=== PATIENT | female | born 2000 | race Caucasian/White ===

== ENCOUNTER 2022-12-29 13:32 | Outpatient (OUT) | payer OTHER, SELFPAY ==
--- NOTE | 2022-12-29 14:01 | US_ITS ---
[place] [id number] Patient Name: NIDIA PEDRO MRN: [id number] date: 2000 Sex: F Assigned Patient Location: US Current Patient Location: Accession/Order Number: [id number] Exam Date: 12/29/2022 14:01 Report Date: 12/30/2022 07:26 At the request of: ADRIAN GUSMAN Procedure: US OB transvaginal EXAMINATION: US OB transvaginal HISTORY: MISSED MENSES COMPARISON: No relevant comparison available. FINDINGS: Webb intrauterine gestation Gestational sac: 2.33 cm, 6 weeks 6 days CRL: 1.15 cm, 7 weeks 2 days Yolk sac: 4.0 mm Heart rate: 149 bpm Cervix: Closed, 3.5 cm Uterus: Normal, anteverted The right ovary is not visualized. The left ovary measures 5.1 cm containing a 3.9 cm area of anechoic echogenicity possibly corpus luteal cyst Clinical age: 8 weeks 2 days Clinical AYAH: 08/08/2023 Ultrasound age: 7 weeks 2 days Ultrasound AYAH: 08/15/2023 US/US OB transvaginal IMPRESSION: Viable webb intrauterine gestation measuring 7 weeks 2 days Electronically authenticated by: PARTH PEDRO Date: 12/30/2022 07:26
== END 2022-12-29 13:33 | disposition home or self-care (01) ==
LOC: US 13:54
PROVIDERS: Visit Provider Obstetrics & Gynecology
DX: Z34.91 Encounter for supervision of normal pregnancy, unspecified, first trimester (principal); Z3A.01 Less than 8 weeks gestation of pregnancy
CPT/HCPCS: 76817

== ENCOUNTER 2023-03-09 19:18 | Outpatient (REF) | payer OTHER, SELFPAY ==
--- OUTSIDE RECORDS SUMMARY | 2023-03-09 19:21 | XMS_ITS | CCD ---
Author Name Unknown Address [address] [place] [address] Organization [facility] Care Team Providers Care Hourly Associate Name Role Phone Rosita Owen Primary Care Physician Rosita Owen Admitting Unavailable Rosita Owen Attending Unavailable Rosita Owen Referring Unavailable Adrian GUSMAN Admitting Unavailable Adrian GUSMAN Attending Unavailable Giulia Oneil Admitting Unavailable Giulia Oneil Attending Unavailable ADRIAN GUSMAN Attending Unavailable Results Test Name Value Interpretation Reference Range Facility .Interpretation:on 3 HCV Ab IA Ql Comment Invalid Interpretation Code [facility] Comment on above: Result Comment: Not infected with HCV unless early or acute infection is suspected (which may be delayed in an immunocompromised individual), or other evidence exists to indicate HCV infection. Performed at: [facility] [address] [id number] PhD Nathaniel Boone Performed By: #### 2 185510, 8301592, [id number], 04438148, 661225670, 3477920, 794185018, [id number], [id number] #### [facility] [address] [place] [address] C Urineon 01-08-2023 Bacteria identified Cx Nom (U) Microbiology PROCEDURE: Urine Culture [R1] SOURCE: U CleanCatch BODY SITE: COLLECTED DATE/TIME: 01/06/2023 14:59 EDT RECEIVED DATE/TIME: 01/06/2023 16:04 EDT START DATE/TIME: 01/06/2023 16:04 EDT FREE TEXT SOURCE: Adrian GUSMAN DO, DO, Corey R FINAL REPORTS Final Report [] Verified Date/Time: 01/08/2023 11:38 EDT 1,000 cfu/ml Mixed skin contaminants Performing Locations R1: This test was performed at: [facility], [address] [place] [address], [address] , [place], Normal [facility] Comment on above: Performed By: #### 2 969809 ####[facility] [address] [place] [address] HCV Antibody RFX to Quant PC Isreal 01-08-2023 HCV IgG IA Ql Non-Reactive Invalid Interpretation Code Non Reactive [facility] Comment on above: Result Comment: Perf ormed at: [address] [id number] PhD Nathaniel Boone Performed By: #### 2 953689, 1741270, [id number], 47516471, 265691492, 3235420, 521250384, [id number], [id number] #### [facility] [address] [place] [address] HIV Screen 4th Generation wR fxon 01-08-2023 HIV 1+2 Ab+HIV1 p24 Ag IA Ql Non-Reactive Invalid Interpretation Code Non Reactive [facility] Comment on above: Result Comment: HIV Negative HIV-1/HIV-2 antibodies and HIV-1 p24 antigen were NOT detected. There is no laboratory evidence of HIV infection. Performed at: [address] [id number] PhD Nathaniel Boone Performed By: #### 2 856394, 6305602, [id number], 15282509, 089098148, 5557940, 132545185, [id number], [id number] #### [facility] [address] [place] [address] Hep Bs Agon 01-08-2023 HBV surface Ag IA Ql Negative Invalid Interpretation Code Negative [facility] Comment on above: Result Comment: Perf ormed at: [place] [id number] [place], [place] [id number] PhD Nathaniel Boone Performed By: #### 2 244267, 5123558, [id number], 28144956, 891028330, 9332402, 290346369, 2980609500, [id number] #### [facility] [address] [place] [address] RPR with Conf Rfxon 01-09-20 Reagin Ab RPR Ql (S) Non-Reactive Invalid Interpretation Code Non Reactive [facility] Comment on above: Result Comment: Perf ormed at: [address] [id number] PhD Nathaniel Boone Performed By: #### 2 783816, 0781899, [id number], 28738993, 829040529, 0358209, 472387099, 4790360293, 482884607 #### [facility] [address] [place] [address] Rubella IgGon 01-08-2023 Rubella virus IgG Qn (S) 3.20 [IU]/mL Invalid Interpretation Code Immune >0.99 [facility] Comment on above: Result Comment: Non- immune <0.90 Equivocal 0.90 - 0.99 Immune >0.99 Performed at: [address] [id number] PhD Nathaniel Boone Performed By: #### 2 205853, 4926321, 9755201951, 55770943, 404441860, 2613489, 305067657, 9726867060, 230357163 ####[facility] [address] [place] [address] ABO/Rhon 01-06-2023 ABO/Rh Positive Invalid Interpretation Code [facility] Comment on above: Performed By: #### 2 027526, [id number], [id number] ####[facility] [address] [place] [address] ABO/Rh History Checkon 01-06 ABO/Rh History Check Verified Hx Blood Type Normal [facility] Comment on above: Performed By: #### 2 569626, 02900513, 52060787 ####[facility] [address] [place] [address] ABSCon 01-06-2023 ABSC Gel Interp Negative Normal [facility] Comment on above: Performed By: #### 2 720040, 17662645, 91131671 ####[facility] [address] [place] [address] BLOOD BANKOrdered By: Hollie Zavala on 01-06-2023 ABO/Rh Interp Positive Invalid Interpretation Code [facility] BB Subsection ABSC Gel Interp Negative (01/06/23 3:05 PM) Normal [facility] BB Subsection CBC w/Indiceson 01-06-2023 Erythrocyte distribution width (RBC) [Ratio] 12.8 % Normal 10.9-14.2 [facility] Comment on above: Performed By: #### 2 662339, 9890474, 0217664301, 01275800, 396341047, 5745418, 569615327, 9408855442, 417806955 #### [facility] [address] [place] [address] Hematocrit (Bld) [Volume fraction] 40.8 % Normal 34.0-46.0 [facility] Comment on above: Performed By: #### 2 563986, 3522956, 3124083396, 68301393, 071301218, 9387070, 761491712, 9400363373, 830595981 #### [facility] [address] [place] [address] Hemoglobin (Bld) [Mass/Vol] 13.8 g/dL Normal 12.0-16.0 [facility] Comment on above: Performed By: #### 2 028885, 4142596, 7028872059, 39396755, 349633161, 0656623, 224567315, 1027050949, 281336581 #### [facility] [address] [place] [address] MCH (RBC) [Entitic mass] 31.6 pg Normal 27.0-34.0 [facility] Comment on above: Performed By: #### 2 079806, 6395378, 4707842736, 04194902, 810642113, 7948759, 596248543, 4465193235, 824447331 #### [facility] [address] [place] 0205857 MCHC (RBC) [Mass/Vol] 33.7 g/dL Normal 31.4-36.0 [facility] Comment on above: Performed By: #### 2 802676, 5716268, 7118431218, 14480954, 829565282, 1297898, 172029971, 2081396586, 932282654 #### [facility] [address] [place] [address] MCV (RBC) [Entitic vol] 93.7 fL Normal 80.0-100.0 [facility] Comment on above: Performed By: #### 2 886733, 1336170, 8773368646, 22219247, 105886707, 8059825, 867351352, 4170068208, 230065191 #### [facility] [address] [place] [address] Platelet mean volume (Bld) [Entitic vol] 8.1 fL Normal 6.4-10.8 [facility] Comment on above: Performed By: #### 2 120218, 2985177, 8007435455, 81132951, 948496556, 8350460, 195477792, 2849577580, 570310358 #### [facility] [address] [place] [address] Platelets (Bld) [#/Vol] 345.0 E9/L Normal 150.0-500.0 [facility] Comment on above: Performed By: #### 2 940387, 6475407, 4781592233, 26476766, 905993394, 0492435, 542846446, 2242320517, 537650863 #### [facility] [address] [place] [address] RBC (Bld) [#/Vol] 4.4 E12/L Normal 4.3-5.9 [facility] Comment on above: Performed By: #### 2 651582, 2452347, 1809715074, 89461401, 079879808, 2854345, 080673111, 9290640818, 706527604 #### [facility] [address] [place] [address] WBC corrected for nucl RBC Auto (Bld) [#/Vol] 9.8 E9/L Normal 4.0-11.0 [facility] Comment on above: Performed By: #### 2 418499, 7201691, 0485210474, 33740439, 779633013, 3835714, 420745313, 7298288823, 583473211 #### [facility] [address] [place] [address] CHEMISTRYOrdered By: Maryann Brooke on 01-06-2023 HbA1c (Bld) [Mass fraction] 5.0 % Normal <=5.9% [facility] ChemAutoSS CHEMISTRYOrdered By: SYSTEM SYSTEM on 01-06-2023 TSH Qn 1.74 m[IU]/L Normal 0.34 - 5.60 mcIU/mL [facility] Remisol Consent for Treatmenton 12-12 Consent for Treatment [id number] .00TIFF Normal [facility] HEMATOLOGYOrdered By: Hollie Zavala on 01-06-2023 Erythrocyte distribution width (RBC) [Ratio] 12.8 % Normal 10.9 - 14.2 % [facility] HemeAutoSS Hematocrit (Bld) [Volume fraction] 40.8 % Normal 34.0 - 46.0 % [facility] HemeAutoSS Hemoglobin (Bld) [Mass/Vol] 13.8 g/dL Normal 12.0 - 16.0 gm/dL [facility] HemeAutoSS MCH (RBC) [Entitic mass] 31.6 pg Normal 27.0 - 34.0 pg [facility] HemeAutoSS MCHC (RBC) [Mass/Vol] 33.7 g/dL Normal 31.4 - 36.0 gm/dL [facility] HemeAutoSS MCV (RBC) [Entitic vol] 93.7 fL Normal 80.0 - 100.0 fL [facility] HemeAutoSS Platelet mean volume (Bld) [Entitic vol] 8.1 fL Normal 6.4 - 10.8 fL [facility] HemeAutoSS Platelets (Bld) [#/Vol] 345.0 E9/L Normal 150.0 - 500.0 E9/L [facility] HemeAutoSS RBC (Bld) [#/Vol] 4.4 E12/L Normal 4.3 - 5.9 E12/L [facility] HemeAutoSS WBC corrected for nucl RBC Auto (Bld) [#/Vol] 9.8 E9/L Normal 4.0 - 11.0 E9/L [facility] HemeAutoSS [id number] 01-06-2023 HbA1c (Bld) [Mass fraction] 5.0 % Normal <=5.9 [facility] Comment on above: Performed By: #### 2 447243, 3863451, 5764251953, 01749550, 903622181, 6211196, 221524619, 3264320669, 835892386 #### [facility] [address] [place] [address] Physician Orderon 01-06-2023 Physician Order [id number] .00TIFF Normal [facility] TSHon 01-06-2023 TSH Qn 1.74 m[IU]/L Normal 0.34-5.60 [facility] Comment on above: Performed By: #### 2 947832, 8387433, 3996248768, 34653451, 708567595, 0778827, 411333893, 4017689383, 145498876 #### [facility] [address] [place] [address] US Thyroidon 10-21-2022 US Thyroid Exam Date/Time: 10/20/2022 09:12 EDT Reason for Exam: E04.1 Report IMPRESSION: Small bilateral cystic nodules EXAM: Ultrasound Thyroid Please note that characterization of thyroid nodules is based on the ACR 2017 TI-RADS classification which provides guidelines regarding management of thyroid nodules on the basis of their ultrasound appearance. These are offered in an attempt to assist the referring physician in their decision process and help address the current over diagnosis of thyroid cancer. It should be noted that the [place] Preventative Services Task Force concludes that screening for thyroid cancer results in harms that outweighed the benefits and recommends against screening for thyroid cancer in asymptomatic adults. RECOMMENDATIONS: TR1: Benign. No FNA required TR2: Not suspicious. No FNA required TR3: Greater than or equal to 1.5 cm, follow-up 1, 3, and 5 years. Greater than or equal to 2.5 cm: FNA TR 4: Greater than or equal to 1 cm, follow-up: 1, 2, 3, and 5 years. Greater than or equal to 1.5 cm: FNA. TR 5: Greater than or equal to 0.5 cm, annual follow-up for up to 5 years. Greater than or equal to 1 cm: FNA. CLINICAL HISTORY: E04.1 possible enlarged thyroid on physical exam. COMPARISONS: None available. FINDINGS: Biplanar images were obtained. The right lobe measures 5.1 cm. The left lobe measures 4.2 cm. The isthmus measures 0.3 cm Thyroid gland iswithin normal limits in size Right thyroid lobe: 4 mm cystic nodule right lobe with colloid. TR 1 nodule. Left thyroid lobe: 6 mm cystic nodule with small amount of colloid. TR 1 nodule Report Ordering Provider: Rosita Owen FINAL REPORT Dictated: 10/21/2022 2:23 pm Rios Douglas MD Signed (Electronic Signature): 10/21/2022 2:23 pm Signed by: Rios Douglas MD Transcribed by: JAG Technologist: THALIA [facility] Consent for Treatmenton 10-11 Consent for Treatment [id number] .00CD:127 [facility] Physician Orderon 10-17-2022 Physician Order [id number]#1 .00CD:127 Normal [facility] PAP [id number] 08-12-2022 Cytology report Cyto stain Doc (Cvx/Vag) Note Invalid Interpretation Code [facility] Comment on above: Result Comment: TEST S RESULT FLAG UNITS REF RANGE LAB Clinician Provided Cytology Information Source.............Cervix No. of containers..01 ThinPrep Vial DIAGNOSIS: 01 NEGATIVE FOR INTRAEPITHELIAL LESION OR MALIGNANCY. PREDOMINANCE OF COCCOBACILLI CONSISTENT WITH SHIFT IN VAGINAL KELLY IS PRESENT. THIS SPECIMEN WAS RESCREENED PART OF OUR TACK CUTTER PROGRAM. Specimen adequacy: 01 Satisfactory for evaluation. Endocervical and/or squamous metaplastic cells (endocervical component) are present. Performed by: Kurtis Freedman, Maintenance Parts Technician ([facility]) QC reviewed by: Kurtis Eugene, Maintenance Parts Technician ([facility]) . 01 Note: Note 01 The Pap smear is a screening test designed to aid in the detection of premalignant and malignant conditions of the uterine cervix. It is not a diagnostic procedure and should not be used as the sole means of detecting cervical cancer. Both false-positive and false-negative reports do occur. Test Methodology: Note 01 This liquid based ThinPrep(R) pap test was screened with the use of an image guided system. . 01 The HPV DNA reflex criteria were not met with this specimen result therefore, no HPV testing was performed. FLAG LEGEND: L-Low Normal,H-High Normal,LL-Alert Low,HH-Alert High <-Panic Low,>-Panic High,A-Abnormal,AA-Critical Abnormal Performed at: 01 [facility] [address] [facility], [place] [address] Maryellen Knox MD, Performed at: [facility] [address] [place], [place] [id number] MD Lisette Bojorquez Performed By: #### 3 [id number] ####[facility] [address] [place] [address] PAP [id number] 08-03-2022 Collection Technique BRUSH-SPATULA Normal [facility] Comment on above: Performed By: #### 3 [id number] ####[place] [address] [place] [address] Gynecological Body Site CERVIX Normal [facility] Comment on above: Performed By: #### 3 [id number] ####[place] [address] [place] [address] Physician Orderon 08-03-2022 Physician Order [id number] .00CD:127 Normal [facility] Encounters Encounter Date Encounter Type Care Provider Facility Start: 02-06-2023 End: 02-06-2023 ambulatory ADRIAN GUSMAN Not Available Start: 01-06-2023 End: 01-07-2023 ambulatory Adrian GUSMAN Facility:[facility] Start: 01-06-2023 End: 01-06-2023 Patient encounter procedure Adrian GUSMAN [facility] Start: 10-20-2022 End: 10-21-2022 ambulatory Rosita Owen Facility:[facility] Start: 10-20-2022 End: 10-20-2022 Patient encounter procedure Rosita Owen [facility] Start: 08-03-2022 End: 08-04-2022 ambulatory Giulia Oneil Facility:[facility] Payers Date Payer Category Payer Unknown 2021 Unknown [id number] 2000 Unknown [id number] [id number] [id number] 2000 Unknown [id number] [id number] [id number] 2000 Unknown [id number] 2.16.8 [id number] 2000 Unknown [id number] Social History Date Type Detail Facility Tobacco smoking status No Smoking Status Entered [facility] Sex Assigned At Female [facility] Evaluation + Plan note 01-06-2023 Note Date & Type Note Facility 01-06-2023 Evaluation + Plan note Diagnostic Tests PendingUrine Culture 01/06/23HIV Screen 4th Generation wRfx 01/06/23Hepatitis B Surface Antigen 01/06/23RPR with Conf Rfx 01/06/23Rubella Antibody IgG 01/06/23HCV Antibody RFX to Quant PCR 01/06/23 [facility] Evaluation + Plan note Note Date & Type Note Facility Evaluation + Plan note No data available for this section [facility] Hospital Discharge instructions Note Date & Type Note Facility Hospital Discharge instructions No data available for this section [facility] Progress note Note Date & Type Note Facility Progress note No data available for this section [facility] Summary Purpose Family History No Family History Records Found Advance Directives No Advanced Directives Records FoundNo Advanced Directives Records Found Additional Source Comments Patient Care team informatio n (unrecognized section and content) Personnel Name: Rosita Owen MD Address: Address: [address] [place] [address]- Personnel Name: Rosita Owen MD Address: Address: [address] [place] [address] INFORMATION SOURCE (unrecogn ized section and content) DATE CREATED AUTHOR 01/08/2023 [facility] DATE CREATED AUTHOR AUTHOR'S ORGANIZ ATION 02/07/2023 [facility] EPIC FOR RECORDS PERTAINING TO PATIENTS WHO ARE OR HAVE BEEN ENROLLED IN A CHEMICAL DEPENDENCY/SUBSTANCEABUSE PROGRAM, SOME INFORMATION MAY BE OMITTED. This clinical summary was aggregated from multiple sources. Caution should be exercised in using it in the provision of clinical care. This summary normalizes information from multiple sources, and as a consequence, information in this document may materially change the coding, format and clinical context of patient data. In addition, data may be omitted in some cases. CLINICAL DECISIONS SHOULD BE BASED ON THE PRIMARY CLINICAL RECORDS. [facility]. provides no warranty or guarantee of the accuracy or completeness of information in this document.
[2023-03-15 18:11] LABS: Age Gdln ACOG Testing Note (.); IGP, rfx Aptima HPV ASCU Note (.)
== END 2023-03-09 19:19 | disposition home or self-care (01) ==
LOC: LAB 19:18
PROVIDERS: Visit Provider Physician Assistant
DX: Z01.419 Encounter for gynecological examination (general) (routine) without abnormal findings (principal)
CPT/HCPCS: G0145

== ENCOUNTER 2023-04-04 13:41 | Outpatient (OUT) | payer OTHER, SELFPAY ==
--- OUTSIDE RECORDS SUMMARY | 2023-04-04 13:46 | XMS_ITS | CCD ---
Author Name Unknown Address [address] [place] [address] Organization [facility] Care Team Providers Care Project Officer Name Role Phone Rosita Casas Primary Care Physician Rosita Casas Admitting Unavailable Rosita Casas Attending Unavailable Rosita Casas Referring Unavailable Adrian GUSMAN Admitting Unavailable Adrian GUSMAN Attending Unavailable Giulia Oneil Admitting Unavailable Giulia Oneil Attending Unavailable JONO MERA Attending Unavailable ROSITA CASAS Attending Unavailable ADRIAN GUSMAN Attending Unavailable Results Test Name Value Interpretation Reference Range Facility .Interpretation:on 3 HCV Ab IA Ql Comment Invalid Interpretation Code [facility] Comment on above: Result Comment: Not infected with HCV unless early or acute infection is suspected (which may be delayed in an immunocompromised individual), or other evidence exists to indicate HCV infection. Performed at: [facility] [address] [id number] PhD Nathaniel Boone Performed By: #### 2 756511, 3417264, [id number], 03883427, 898202074, 2667316, 701227960, [id number], [id number] #### [facility] [address] [place] [address] C Urineon 01-08-2023 Bacteria identified Cx Nom [...] Locations R1: This test was performed at: [facility], [address] [place] [address], [address]- , , Normal [facility] Comment on above: Performed By: #### 2 [id number] ####[facility] [address] [place] [address] HCV Antibody RFX to Quant PC Isreal 01-08-2023 HCV IgG IA Ql Non-Reactive Invalid Interpretation Code Non Reactive [facility] Comment on above: Result Comment: Perf ormed at: [address] [id number] PhD Nathaniel Boone Performed By: #### 2 281363, 7583008, [id number], 82322274, 329498157, 5015803, 225929665, [id number], [id number] #### [facility] [address] [place] [address] HIV Screen 4th Generation wR fxon 01-08-2023 HIV 1+2 Ab+HIV1 p24 Ag IA Ql Non-Reactive Invalid Interpretation Code Non Reactive [facility] Comment on above: Result Comment: HIV Negative HIV-1/HIV-2 antibodies and HIV-1 p24 antigen were NOT detected. There is no laboratory evidence of HIV infection. Performed at: [address] [id number] PhD Nathaniel Boone Performed By: #### 2 978449, 3599191, 6095189184, 88028679, 254102300, 8469620, 700951623, 6069134618, [id number] #### [facility] [address] [place] [address] Hep Bs Agon 01-08-2023 HBV surface Ag IA Ql Negative Invalid Interpretation Code Negative [facility] Comment on above: Result Comment: Perf ormed at: [address] [id number] PhD Nathaniel Boone Performed By: #### 2 794536, 4871156, [id number], 79373587, 314655317, 8952725, 829841825, 0345781803, 285603541 #### [facility] [address] [place] [address] RPR with Conf Rfxon 01-09-20 Reagin Ab RPR Ql (S) Non-Reactive Invalid Interpretation Code Non Reactive [facility] Comment on above: Result Comment: Perf ormed at: [address] [id number] PhD Nathaniel Boone Performed By: #### 2 042330, 8064283, 2145647380, 91361114, 439539472, 2292763, 016894478, 2443420803, 999921438 #### [facility] [address] [place] [address] Rubella IgGon 01-08-2023 Rubella virus IgG Qn (S) 3.20 [IU]/mL Invalid Interpretation Code Immune >0.99 [facility] Comment on above: Result Comment: Non- immune <0.90 Equivocal 0.90 - 0.99 Immune >0.99 Performed at: [address] [id number] PhD Nathaniel Boone Performed By: #### 2 898673, 4055471, 3346184282, 43028994, 592607549, 3021418, 964034415, 8639753096, 860112448 ####[address] [place] [address] ABO/Rhon 01-06-2023 ABO/Rh Positive Invalid Interpretation Code [facility] Comment on above: Performed By: #### 2 604400, 44689634, [id number] ####[facility] [address] [place] [address] ABO/Rh History Checkon 01-06 ABO/Rh History Check Verified Hx Blood Type Normal [facility] Comment on above: Performed By: #### 2 995288, 28802050, [id number] ####[facility] [address] [place] [address] ABSCon 01-06-2023 ABSC Gel Interp Negative Normal [facility] Comment on above: Performed By: #### 2 593941, 70370152, 37954867 ####[facility] [address] [place] [address] BLOOD BANKOrdered By: Hollie Zavala on 01-06-2023 ABO/Rh Interp Positive Invalid Interpretation Code [facility] BB Subsection ABSC Gel Interp Negative (01/06/23 3:05 PM) Normal [facility] BB Subsection CBC w/Indiceson 01-06-2023 Erythrocyte distribution width (RBC) [Ratio] 12.8 % Normal 10.9-14.2 [facility] Comment on above: Performed By: #### 2 328038, 1482586, 2121204228, 04696099, 639212825, 4563403, 933458634, 3410531920, 916505674 #### [facility] [address] [place] [address] Hematocrit (Bld) [Volume fraction] 40.8 % Normal 34.0-46.0 [facility] Comment on above: Performed By: #### 2 795044, 3343043, 4812207979, 03019093, 112321043, 2600390, 476786972, 7073232821, 357107436 #### [facility] [address] [place] [address] Hemoglobin (Bld) [Mass/Vol] 13.8 g/dL Normal 12.0-16.0 [facility] Comment on above: Performed By: #### 2 919055, 7659460, 7862139367, 20778559, 095408004, 7427678, 482179733, 1119395275, 978336341 #### [facility] [address] [place] [address] MCH (RBC) [Entitic mass] 31.6 pg Normal 27.0-34.0 [facility] Comment on above: Performed By: #### 2 250603, 2932093, 2451748228, 15521821, 647078439, 7339129, 656489551, 5807270863, 919909561 #### [facility] [address] [place] [address] MCHC (RBC) [Mass/Vol] 33.7 g/dL Normal 31.4-36.0 [facility] Comment on above: Performed By: #### 2 412283, 9640690, 3505533472, 98921047, 085066167, 4156291, 724573560, 4157274632, 572980186 #### [facility] [address] [place] [address] MCV (RBC) [Entitic vol] 93.7 fL Normal 80.0-100.0 [facility] Comment on above: Performed By: #### 2 141671, 7249228, 6652961079, 35258207, 492830359, 2888227, 380240354, 2998553452, 453771878 #### [facility] [address] [place] [address] Platelet mean volume (Bld) [Entitic vol] 8.1 fL Normal 6.4-10.8 [facility] Comment on above: Performed By: #### 2 583918, 7859739, 0063491127, 47373026, 199801895, 1018110, 622757211, 5559457580, 510426394 #### [facility] [address] [place] [address] Platelets (Bld) [#/Vol] 345.0 E9/L Normal 150.0-500.0 [facility] Comment on above: Performed By: #### 2 204936, 1520852, 4355224766, 82511716, 434817279, 8921391, 024721191, 8924745091, 018807065 #### [facility] [address] [place] [address] RBC (Bld) [#/Vol] 4.4 E12/L Normal 4.3-5.9 [facility] Comment on above: Performed By: #### 2 517584, 0632531, 3537561833, 72428255, 442634971, 1679094, 739325974, 1239144287, 647753588 #### [facility] [address] [place] [address] WBC corrected for nucl RBC Auto (Bld) [#/Vol] 9.8 E9/L Normal 4.0-11.0 [facility] Comment on above: Performed By: #### 2 791237, 1526653, 8481788446, 89082915, 103900642, 6038482, 059522931, 1971555230, 981944086 #### [facility] [address] [place] [address] CHEMISTRYOrdered By: Maryann Brooke on 01-06-2023 HbA1c (Bld) [Mass fraction] 5.0 % Normal <=5.9% [facility] ChemAutoSS CHEMISTRYOrdered By: SYSTEM SYSTEM on 01-06-2023 TSH Qn 1.74 m[IU]/L Normal 0.34 - 5.60 mcIU/mL [facility] Remisol Consent for Treatmenton 12-12 Consent for Treatment [id number] .00TIFF Normal [facility] HEMATOLOGYOrdered By: Hollie Zavala on 01-06-2023 Erythrocyte [...] Normal 4.0 - 11.0 E9/L [facility] HemeAutoSS ZjkQ2olv 01-06-2023 HbA1c (Bld) [Mass fraction] 5.0 % Normal <=5.9 [facility] Comment on above: Performed By: #### 2 575123, 2541103, 2683430289, 12809893, 576655441, 2939673, 623011849, 1888379847, 666465276 #### [facility] [address] [place] [address] Physician Orderon 01-06-2023 Physician Order [id number] .00TIFF Normal [facility] TSHon 01-06-2023 TSH Qn 1.74 m[IU]/L Normal 0.34-5.60 [facility] Comment on above: Performed By: #### 2 451630, 2790806, 5809828463, 32566463, 178737511, 0105167, 546440354, 3663856656, 387245838 #### [facility] [address] [place] [address] US Thyroidon 10-21-2022 US Thyroid Exam Date/Time: [...] TR 1 nodule Report Ordering Provider: Rosita Casas FINAL REPORT Dictated: 10/21/2022 2:23 pm Rios Douglas MD Signed (Electronic Signature): 10/21/2022 2:23 pm Signed by: Rios Douglas MD Transcribed by: JAG Technologist: THALIA Normal [facility] Consent for Treatmenton 10-11 Consent for Treatment [id number] .00CD:127 Normal [facility] Physician Orderon 10-17-2022 Physician Order [id number]#1 .00CD:127 Normal [facility] PAP [id number] 08-12-2022 Cytology report Cyto stain Doc (Cvx/Vag) Note Invalid Interpretation Code [facility] Comment on above: Result Comment: TEST S RESULT FLAG UNITS REF RANGE LAB Clinician Provided Cytology Information Source.............Cervix No. of containers..01 ThinPrep Vial DIAGNOSIS: 01 NEGATIVE FOR INTRAEPITHELIAL LESION OR MALIGNANCY. PREDOMINANCE OF COCCOBACILLI CONSISTENT WITH SHIFT IN VAGINAL KELLY IS PRESENT. THIS SPECIMEN WAS RESCREENED PART OF OUR AUTOMATIC OPERATOR PROGRAM. Specimen adequacy: 01 Satisfactory for evaluation. Endocervical and/or squamous metaplastic cells (endocervical component) are present. Performed by: Kurtis Freedman, Cash Applications Associate (ASC) QC reviewed by: Kurtis Eugene, Cash Applications Associate (ASC) . 01 Note: Note 01 The Pap [...] High,A-Abnormal,AA-Critical Abnormal Performed at: 01 [facility] [address] [place] [address] Maryellen Knox MD, Performed at: [facility] [address] [place], [place] [id number] MD Lisette Bojorquez Performed By: #### 3 [id number] ####[facility] [address] [place] [address] PAP [id number] 08-03-2022 Collection Technique BRUSH-SPATULA Normal [facility] Comment on above: Performed By: #### 3 [id number] ####[address] [place] [address] Gynecological Body Site CERVIX Normal [facility] Comment on above: Performed By: #### 3 [id number] ####[address] [place] [address] Physician Orderon 08-03-2022 Physician Order [id number] .00CD:127 Normal [facility] Encounters Encounter Date Encounter Type Care Provider Facility Start: 03-10-2023 End: 03-10-2023 ambulatory ROSITA CASAS Not Available Start: 03-09-2023 End: 03-09-2023 ambulatory JONO MERA Not Available Start: 02-06-2023 End: 02-06-2023 ambulatory ADRIAN GUSMAN Not Available Start: 01-06-2023 End: 01-07-2023 ambulatory Adrian GUSMAN Facility:[facility] Start: 01-06-2023 End: 01-06-2023 Patient encounter procedure Adrian GUSMAN [facility] Start: 10-20-2022 End: 10-21-2022 ambulatory Rosita Casas Facility:[facility] Start: 10-20-2022 End: 10-20-2022 Patient encounter procedure Rosita Casas [facility] Start: 08-03-2022 End: 08-04-2022 ambulatory Giulia Oneil Facility:[facility] Payers Date Payer Category Payer Unknown 2021 Unknown [id number] 1999 Unknown [id number] 2.16.8 [id number] 1999 Unknown [id number] 2.16.8 [id number] 1999 Unknown [id number] 2.16.8 [id number] 1999 Unknown [id number] 1999 Unknown [id number] [id number] 1999 Unknown [id number] Social History Date Type Detail Facility Tobacco smoking status No Smoking Status Entered [facility] Sex Assigned At Female [facility] Evaluation + Plan note 01-06-2023 Note Date & Type Note Facility 01-06-2023 Evaluation + Plan note Diagnostic Tests PendingUrine Culture 01/06/23HIV Screen 4th Generation wRfx 01/06/23Hepatitis B Surface Antigen 01/06/23RPR with Conf Rfx 01/06/23Rubella Antibody IgG 01/06/23HCV Antibody RFX to Quant PCR 01/06/23 [facility] Evaluation + Plan note Note Date & Type Note Facility Evaluation + Plan note No data available for this section [facility] Hospital Discharge instructions Note Date & Type Note Facility Hospital Discharge instructions No data available for this section [facility] Progress note Note Date & Type Note Facility Progress note No data available for this section [facility] Summary Purpose Family History No Family History Records Found Advance Directives No Advanced Directives Records FoundNo Advanced Directives Records Found Additional Source Comments Patient Care team informatio n (unrecognized section and content) Personnel Name: Rosita Casas MD Address: Address: [address] [place] [address] Personnel Name: Rosita Casas MD Address: Address: [address] [place] [address] INFORMATION SOURCE (unrecogn ized section and content) DATE CREATED AUTHOR 01/08/2023 [facility] DATE CREATED AUTHOR AUTHOR'S ORGANIZ ATION 03/11/2023 [facility] FOR RECORDS PERTAINING TO PATIENTS WHO ARE [...] BE BASED ON THE PRIMARY CLINICAL RECORDS. [employer] provides no warranty or guarantee of the accuracy or completeness of information in this document.
--- NOTE | 2023-04-04 14:07 | US_ITS ---
[address] [address] Patient Name: NIDIA PEDRO MRN: [id number] date: 2000 Sex: F Assigned Patient Location: US Current Patient Location: Accession/Order Number: [id number] Exam Date: 04/04/2023 14:08 Report Date: 04/04/2023 15:14 At the request of: ADRIAN GUSMAN Procedure: US OB anatomy EXAMINATION: US OB anatomy, US OB cervical length HISTORY: Anatomy scan Z36.98 COMPARISON: No relevant comparison available. TECHNIQUE: Transabdominal sonographic examination was performed for obstetrical and evaluation. FINDINGS: Number: 1 Heart Rate: 152.5 bpm H.B. /min Amniotic Fluid Volume: Subjectively normal position: Cephalic presentation, longitudinal lie Placental Location: Posterior. The placental edge is 1.3 cm from the internal os. Grade 0 Cervix Length: 6.2 cm , closed Normally anatomy: Lateral ventricles, cerebellum, posterior fossa, nose, lips, orbits, four-chamber heart, RVOT, LVOT, diaphragm, stomach, kidneys, abdominal cord insertion, bladder, umbilical arteries, three-vessel cord, spine, extremities BIOMETRY: BPD: 5.0 cm 21 weeks 2 days , 61% HC: 19.4 cm 21 weeks 4 days, 67% AC: 15.6 cm 20 weeks 5 days, 36% FL: 3.2 cm 20 weeks 0 days, 13% EFW:362.6 grams; 13 ounces, 24% FL/AC: 20.6 FL/BPD: 63.7 HC/AC: 1.2 GESTATIONAL AGE: Age by EDC: 21 weeks 0 days Age by current US: 20 weeks 6 days AYAH by current US: 08/16/2023 AYAH by EDC: 08/15/2023 US/US OB anatomy IMPRESSION: Normal anatomy scan Closed cervix measuring 6.2 cm in length *Reference: [employer] Practice Guideline for the performance of Obstetric Ultrasound Examinations, December 11, 2006. Electronically authenticated by: PARTH PEDRO Date: 04/04/2023 15:14
--- NOTE | 2023-04-04 14:08 | US_ITS ---
[address] [address] Patient Name: NIDIA PEDRO MRN: [id number] date: 2000 Sex: F Assigned Patient Location: US Current Patient Location: Accession/Order Number: [id number] Exam Date: 04/04/2023 14:08 Report Date: 04/04/2023 15:14 At the request of: ADRIAN GUSMAN Procedure: US OB cervical length EXAMINATION: US OB anatomy, US OB cervical length HISTORY: Anatomy scan Z36.98 COMPARISON: No relevant comparison available. TECHNIQUE: Transabdominal sonographic examination was performed for obstetrical and evaluation. FINDINGS: Number: 1 Heart Rate: 152.5 bpm H.B. /min Amniotic Fluid Volume: Subjectively normal position: Cephalic presentation, longitudinal lie Placental Location: Posterior. The placental edge is 1.3 cm from the internal os. Grade 0 Cervix Length: 6.2 cm , closed Normally anatomy: Lateral ventricles, cerebellum, posterior fossa, nose, lips, orbits, four-chamber heart, RVOT, LVOT, diaphragm, stomach, kidneys, abdominal cord insertion, bladder, umbilical arteries, three-vessel cord, spine, extremities BIOMETRY: BPD: 5.0 cm 21 weeks 2 days , 61% HC: 19.4 cm 21 weeks 4 days, 67% AC: 15.6 cm 20 weeks 5 days, 36% FL: 3.2 cm 20 weeks 0 days, 13% EFW:362.6 grams; 13 ounces, 24% FL/AC: 20.6 FL/BPD: 63.7 HC/AC: 1.2 GESTATIONAL AGE: Age by EDC: 21 weeks 0 days Age by current US: 20 weeks 6 days AYAH by current US: 08/16/2023 AYAH by EDC: 08/15/2023 US/US OB cervical length IMPRESSION: Normal anatomy scan Closed cervix measuring 6.2 cm in length *Reference: [employer] Practice Guideline for the performance of Obstetric Ultrasound Examinations, December 11, 2006. Electronically authenticated by: PARTH PEDRO Date: 04/04/2023 15:14
== END 2023-04-04 13:42 | disposition home or self-care (01) ==
LOC: US 13:41
PROVIDERS: Visit Provider Obstetrics & Gynecology
DX: Z36.89 Encounter for other specified antenatal screening (principal); Z3A.21 21 weeks gestation of pregnancy
CPT/HCPCS: 76805; 76817

== ENCOUNTER 2023-04-27 09:47 | Outpatient (OUT) | payer OTHER, SELFPAY ==
--- OUTSIDE RECORDS SUMMARY | 2023-04-27 10:00 | XMS_ITS | CCD ---
Author Name Unknown Address [address] [facility] [address] [place] [address] Organization [facility] Care Team Providers Care Gunner'S Mate M Name Role Phone Rosita Casas Primary Care Physician [phone] Rosita Casas Admitting Unavailable Rosita Casas Attending Unavailable Rosita Casas Referring Unavailable Adrian GUSMAN Admitting Unavailable Adrian GUSMAN Attending Unavailable Giulia Oneil Admitting Unavailable Giulia Oneil Attending Unavailable JONO MERA Attending Unavailable ROSITA CASAS Attending Unavailable UZMAADRIAN BURROUGHS Attending Unavailable ADRIAN GUSMAN Attending Unavailable Results Test Name Value Interpretation Reference Range Facility .Interpretation:on 3 HCV Ab IA Ql Comment Invalid Interpretation Code [facility] Comment on above: Result Comment: Not infected with HCV unless early or acute infection is suspected (which may be delayed in an immunocompromised individual), or other evidence exists to indicate HCV infection. Performed at: [facility] [address] [id number] PhD Nathaniel Boone Performed By: #### 2 096580, 9190664, [id number], 17851485, 980651629, 7029897, 998150993, [id number], [id number] #### [facility] [address] [place] [address] C Urineon 01-08-2023 Bacteria identified Cx Nom [...] Locations R1: This test was performed at: [facility], [address] [place] [address], [phone]- , , Normal [facility] Comment on above: Performed By: #### 2 [id number] ####[facility] [address] [place] [address] HCV Antibody RFX to Quant PC Isreal 01-08-2023 HCV IgG IA Ql Non-Reactive Invalid Interpretation Code Non Reactive [facility] Comment on above: Result Comment: Perf ormed at: [facility] [id number] PhD Nathaniel Boone Performed By: #### 2 386206, 7513297, [id number], 30623480, 819723852, 7419188, 204650723, [id number], [id number] #### [facility] [address] [place] [address] HIV Screen 4th Generation wR fxon 01-08-2023 HIV 1+2 Ab+HIV1 p24 Ag IA Ql Non-Reactive Invalid Interpretation Code Non Reactive [facility] Comment on above: Result Comment: HIV Negative HIV-1/HIV-2 antibodies and HIV-1 p24 antigen were NOT detected. There is no laboratory evidence of HIV infection. Performed at: [facility] [id number] PhD Nathaniel Boone Performed By: #### 2 147720, 3834709, [id number], 76886106, 883818517, 5527121, 887872644, [id number], [id number] #### [facility] [address] [place] [address] Hep Bs Agon 01-08-2023 HBV surface Ag IA Ql Negative Invalid Interpretation Code Negative [facility] Comment on above: Result Comment: Perf ormed at: [address] [id number] PhD Nathaniel Boone Performed By: #### 2 368662, 7277171, [id number], 21528327, 353547478, 6275193, 032307709, [id number], [id number] #### [facility] [address] [place] [address] RPR with Conf Rfxon 01-09-20 23 Reagin Ab RPR Ql (S) Non-Reactive Invalid Interpretation Code Non Reactive [facility] Comment on above: Result Comment: Perf ormed at: [address] [id number] PhD Nathaniel Boone Performed By: #### 2 622710, 0775883, [id number], 99272367, 406248996, 7350873, 819844284, 6307266238, [id number] #### [facility] [address] [place] [address] Rubella IgGon 01-08-2023 Rubella virus IgG Qn (S) 3.20 [IU]/mL Invalid Interpretation Code Immune >0.99 [facility] Comment on above: Result Comment: Non- immune <0.90 Equivocal 0.90 - 0.99 Immune >0.99 Performed at: [address] [id number] PhD Nathaniel Boone Performed By: #### 2 692070, 7813210, [id number], 38635290, 939641366, 0630210, 900688182, 4580214815, [id number] ####[facility] [address] [place] [address] ABO/Rhon 01-06-2023 ABO/Rh Positive Invalid Interpretation Code [facility] Comment on above: Performed By: #### 2 705223, 81829905, [id number] ####[facility] [address] [place] [address] ABO/Rh History Checkon 01-06 ABO/Rh History Check Verified Hx Blood Type Normal [facility] Comment on above: Performed By: #### 2 878227, 29448511, [id number] ####[facility] [address] [place] [address] ABSCon 01-06-2023 ABSC Gel Interp Negative Normal [facility] Comment on above: Performed By: #### 2 148644, 07297216, 15718329 ####[facility] [address] [place] [address] BLOOD BANKOrdered By: Hollie Zavala on 01-06-2023 ABO/Rh Interp Positive Invalid Interpretation Code [facility] [place] Subsection ABSC Gel Interp Negative (01/06/23 3:05 PM) Normal [facility] [place] Subsection CBC w/Indiceson 01-06-2023 Erythrocyte distribution width (RBC) [Ratio] 12.8 % Normal 10.9-14.2 [facility] Comment on above: Performed By: #### 2 630888, 7628713, 8848755517, 75282615, 394283633, 7303185, 245607464, 3528123545, 843560951 #### [facility] [address] [place] [address] Hematocrit (Bld) [Volume fraction] 40.8 % Normal 34.0-46.0 [facility] Comment on above: Performed By: #### 2 163639, 3182768, 9696970365, 09225552, 116643861, 2915692, 709516679, 1155485321, 913287190 #### [facility] [address] [place] [address] Hemoglobin (Bld) [Mass/Vol] 13.8 g/dL Normal 12.0-16.0 [facility] Comment on above: Performed By: #### 2 226331, 7468267, 2489756405, 81889265, 473356111, 9819727, 535534895, 6448719743, 285217532 #### [facility] [address] [place] [address] MCH (RBC) [Entitic mass] 31.6 pg Normal 27.0-34.0 [facility] Comment on above: Performed By: #### 2 801171, 2464250, 9970757128, 27547211, 035938103, 7770466, 308060262, 8442806337, 644048595 #### [facility] [address] [place] [address] MCHC (RBC) [Mass/Vol] 33.7 g/dL Normal 31.4-36.0 [facility] Comment on above: Performed By: #### 2 359887, 1011286, 2989206364, 59696221, 345929413, 8690252, 410278196, 9106206890, 701593030 #### [facility] [address] [place] [address] MCV (RBC) [Entitic vol] 93.7 fL Normal 80.0-100.0 [facility] Comment on above: Performed By: #### 2 897224, 9961310, 8030410710, 22822427, 950060178, 8317283, 578805153, 1572468371, 494934594 #### [facility] [address] [place] [address] Platelet mean volume (Bld) [Entitic vol] 8.1 fL Normal 6.4-10.8 [facility] Comment on above: Performed By: #### 2 238899, 1584642, 7345061955, 57176185, 227857999, 0871192, 229819476, 4155871358, 666330680 #### [facility] [address] [place] [address] Platelets (Bld) [#/Vol] 345.0 E9/L Normal 150.0-500.0 [facility] Comment on above: Performed By: #### 2 561152, 6472956, 1761721402, 42007887, 780971141, 8846231, 901917874, 1834240284, 658048297 #### [facility] [address] [place] [address] RBC (Bld) [#/Vol] 4.4 E12/L Normal 4.3-5.9 [facility] Comment on above: Performed By: #### 2 326329, 0791754, 6089218556, 12011809, 768779789, 4767758, 806623461, 2462032129, 520797123 #### [facility] [address] [place] [address] WBC corrected for nucl RBC Auto (Bld) [#/Vol] 9.8 E9/L Normal 4.0-11.0 [facility] Comment on above: Performed By: #### 2 711945, 1560408, 8043433623, 34732422, 465832488, 7963457, 515910549, 7796655702, 210537812 #### [facility] [address] [place] [address] CHEMISTRYOrdered By: Maryann Brooke on 01-06-2023 HbA1c (Bld) [Mass fraction] 5.0 % Normal <=5.9% [facility] ChemAutoSS CHEMISTRYOrdered By: SYSTEM SYSTEM on 01-06-2023 TSH Qn 1.74 m[IU]/L Normal 0.34 - 5.60 mcIU/mL [facility] Remisol Consent for Treatmenton 12-12 Consent for Treatment [id number] .00TIFF Normal [facility] HEMATOLOGYOrdered By: Hollie Zavala on [...] Normal 4.0 - 11.0 E9/L [facility] HemeAutoSS [id number] 01-06-2023 HbA1c (Bld) [Mass fraction] 5.0 % Normal <=5.9 [facility] Comment on above: Performed By: #### 2 745758, 3250120, 4797386990, 97124569, 676916489, 8480668, 593061528, 5108690696, 037371935 #### [facility] [address] [place] [address] Physician Orderon 01-06-2023 Physician Order [id number] .00TIFF Normal [facility] TSHon 01-06-2023 TSH Qn 1.74 m[IU]/L Normal 0.34-5.60 [facility] Comment on above: Performed By: #### 2 887082, 1841202, 0164326985, 37652445, 592019302, 0627702, 294733517, 7014925199, 929864703 #### [facility] [address] [place] [address] US Thyroidon 10-21-2022 US Thyroid Exam Date/Time: [...] MD Transcribed by: JAG Technologist: THALIA Normal [facility] Consent for Treatmenton 10-11 Consent for Treatment [id number] .00CD:127 [facility] Physician Orderon 10-17-2022 Physician Order [id number] .00CD:127 Normal [facility] PAP [id number] 08-12-2022 Cytology report Cyto stain Doc (Cvx/Vag) Note Invalid Interpretation Code [facility] Comment on above: Result Comment: TEST S RESULT FLAG UNITS REF RANGE LAB Clinician Provided Cytology Information Source.............Cervix No. of containers..01 ThinPrep Vial DIAGNOSIS: 01 NEGATIVE FOR INTRAEPITHELIAL LESION OR MALIGNANCY. PREDOMINANCE OF COCCOBACILLI CONSISTENT WITH SHIFT IN VAGINAL KELLY IS PRESENT. THIS SPECIMEN WAS RESCREENED PART OF OUR ROUTE SALESMAN AND DRIVER PROGRAM. Specimen adequacy: 01 Satisfactory for evaluation. Endocervical and/or squamous metaplastic cells (endocervical component) are present. Performed by: Kurtis Freedman, Seat Coverer (ASCP) QC reviewed by: Kurtis Eugene, Seat Coverer (ASCP) . 01 Note: Note 01 The Pap [...] <-Panic Low,>-Panic High,A-Abnormal,AA-Critical Abnormal Performed at: 01 [facility] [address] [place] [address] Maryellen Knox MD, Performed at: [facility] [address] [place] [id number] MD Lisette Bojorquez Performed By: #### 3 [id number] ####[facility] [address] [place] [address] PAP [id number] 08-03-2022 Collection Technique BRUSH-SPATULA Normal [facility] Comment on above: Performed By: #### 3 [id number] ####[place] [place] [address] Gynecological Body Site CERVIX Normal [facility] Comment on above: Performed By: #### 3 [id number] ####[address] [place] [address] Physician Orderon 08-03-2022 Physician Order [id number] .00CD:127 Normal [facility] Encounters Encounter Date Encounter Type Care Provider Facility Start: 04-10-2023 End: 04-10-2023 ambulatory ADRIAN MEJIAO Not Available Start: 03-10-2023 End: 03-10-2023 ambulatory ROSITA CASAS Not Available Start: 03-09-2023 End: 03-09-2023 ambulatory JONO MERA Not Available Start: 02-06-2023 End: 02-06-2023 ambulatory ADRIAN UZMA Not Available Start: 01-06-2023 End: 01-07-2023 ambulatory Adrian R UZMA [place] [place] Start: 01-06-2023 End: 01-06-2023 Patient encounter procedure Adrian R UZMA [facility] Start: 10-20-2022 End: 10-21-2022 ambulatory Rositared Casas Facility[place] Start: 10-20-2022 End: 10-20-2022 Patient encounter procedure Rosita Overton [facility] Start: 08-03-2022 End: 08-04-2022 ambulatory Giulia Oneil Facility[place] [place] Payers Date Payer Category Payer Unknown 2021 Unknown [id number] 2000 Unknown [id number] 2.16.8 [id number] 1999 Unknown [id number] 2.16.8 [id number] 1999 Unknown [id number] 2.16.8 [id number] 1999 Unknown [id number] 2.16.84 [id number] 1999 Unknown [id number] 2.16.840 .[id number] 1999 Unknown [id number] 2.16.840 .[id number] 1999 Unknown [id number] 2.16.840 .[id number] Social History Date Type Detail Facility Tobacco smoking status No Smoking Status Entered [facility] Sex Assigned At Female [facility] Evaluation + Plan note 01-06-2023 Note Date & Type Note Facility 01-06-2023 Evaluation + Plan note Diagnostic Tests PendingUrine Culture 01/06/23HIV Screen 4th Generation wRfx 01/06/23Hepatitis B Surface Antigen 01/06/23RPR with Conf Rfx 01/06/23Rubella Antibody IgG 01/06/23HCV Antibody RFX to Quant PCR 01/06/23 [facility] Evaluation + Plan note Note Date & Type Note Facility Evaluation + Plan note No data available for this section [facility] Hospital Discharge instructions Note Date & Type Note Facility Hospital Discharge instructions No data available for this section [facility] Progress note Note Date & Type Note Facility Progress note No data available for this section [facility] Summary Purpose Family History No Family History Records Found Advance Directives No Advanced Directives Records FoundNo Advanced Directives Records Found Additional Source Comments Patient Care team informatio n (unrecognized section and content) Personnel Name: Rosita Casas MD Address: Address: [address] [place] [address] Personnel Name: Rosita Casas MD Address: Address: [address] [place] [address] INFORMATION SOURCE (unrecogn ized section and content) DATE CREATED AUTHOR 01/08/2023 [facility] DATE CREATED AUTHOR AUTHOR'S ORGANIZ ATION 04/10/2023 [facility] EPIC FOR RECORDS PERTAINING TO PATIENTS [...] BE BASED ON THE PRIMARY CLINICAL RECORDS. [facility] [employer] provides no warranty or guarantee of the accuracy or completeness of information in this document.
[2023-04-27 11:20] LABS: Basophils Percent Auto 0.3 % (0.2-2.0); Eosinophils Absolute Auto 0.1 10^3/uL (0.0-0.7); Eosinophils Percent Auto 0.9 % (0.9-7.0); Hematocrit 35.3 % (36.0-48.0); Hemoglobin 11.7 g/dL (12.0-16.0); Immature Granulocytes Abs Auto 0.18 10^3/uL (0.00-0.03); Immature Granulocytes Pct Auto 1.8 % (0.0-0.5); Lymphocytes Absolute Auto 1.4 10^3/uL (1.2-3.8); Lymphocytes Percent Auto 14.1 % (20.5-60.0); Mean Corpuscular HGB Conc 33.1 g/dL (29.9-35.2); Mean Corpuscular Hemoglobin 31.7 pg (26.7-34.0); Mean Corpuscular Volume 95.7 fL (81.0-99.0); Mean Platelet Volume 9.4 fL (9.5-13.5); Monocytes Absolute Auto 0.4 10^3/uL (0.3-0.8); Neutrophils Absolute Auto 8.1 10^3/uL (1.4-6.5); Neutrophils Percent Auto 78.9 % (43.0-75.0); Platelet Count 255 10^3/uL (150-450); Red Blood Count 3.69 10^6/uL (4.20-5.40); Red Cell Distribution Width 12.3 % (11.0-15.0); White Blood Count 10.2 10^3/uL (4.0-11.0)
[2023-04-27 11:41] LABS: Glucose 1 Hour 87 mg/dL (<130)
== END 2023-04-27 09:48 | disposition home or self-care (01) ==
LOC: LAB 09:47
PROVIDERS: Visit Provider Obstetrics & Gynecology
DX: Z13.1 Encounter for screening for diabetes mellitus (principal)
CPT/HCPCS: 36415; 82950; 85025

== ENCOUNTER 2023-05-24 12:54 | Outpatient (OUT) | payer OTHER, SELFPAY ==
--- NOTE | 2023-05-24 12:57 | US_ITS ---
[place] [id number] Patient Name: NIDIA PEDRO MRN: [id number] date: 2000 Sex: F Assigned Patient Location: [facility] Current Patient Location: [facility] Accession/Order Number: [id number] Exam Date: 05/24/2023 13:00 Report Date: 05/24/2023 13:59 At the request of: ADRIAN GUSMAN Procedure: US OB placenta EXAMINATION: US OB placenta, US OB transvaginal HISTORY: Low-lying placenta O44.40 COMPARISON: No relevant comparison available. FINDINGS: PLACENTA: Posterior, grade 0, with lower margin 4.0 cm from os. CERVIX LENGTH: 5.3 cm; closed. HEART RATE: 142 bpm OTHER: None. US/US OB placenta IMPRESSION: 1. Single live intrauterine . 2. Posterior placenta which is no longer low-lying. Electronically authenticated by: NICOLETTE BLAKELY Date: 05/24/2023 13:59
--- NOTE | 2023-05-24 12:57 | US_ITS ---
[facility] [place] [id number] Patient Name: NIDIA PEDRO MRN: [id number] date: 2000 Sex: F Assigned Patient Location: [facility] Current Patient Location: [facility] Accession/Order Number: [id number] Exam Date: 05/24/2023 13:00 Report Date: 05/24/2023 13:59 At the request of: ADRIAN GUSMAN Procedure: US OB transvaginal EXAMINATION: US OB placenta, US OB transvaginal HISTORY: Low-lying placenta O44.40 COMPARISON: No relevant comparison available. FINDINGS: PLACENTA: Posterior, grade 0, with lower margin 4.0 cm from os. CERVIX LENGTH: 5.3 cm; closed. HEART RATE: 142 bpm OTHER: None. US/US OB transvaginal IMPRESSION: 1. Single live intrauterine . 2. Posterior placenta which is no longer low-lying. Electronically authenticated by: NICOLETTE BLAKELY Date: 05/24/2023 13:59
--- OUTSIDE RECORDS SUMMARY | 2023-05-24 13:14 | XMS_ITS | CCD ---
Author Name Unknown Address [address] [place] [address] Organization [facility] Care Team Providers Care Tape Transferrer Name Role Phone Rosita Casas Primary Care Physician [phone] HAVEN MERA Attending Unavailable ROSITA CASAS Attending Unavailable ADRIAN HARRISON Attending Unavailable ADRIAN HARRISON Attending Unavailable Rosita Casas MD Unavailable Rosita Casas MD Primary Care Provider Parul Cordova Unavailable [phone] Adrian HARRISON Admitting Unavailable Adrian HARRISON Attending Unavailable Giulia Oneil Admitting Unavailable Giulia Oneil Attending Unavailable Bceki ROBISON Attending Unavailable Rosita Casas Admitting Unavailable Rosita Casas Attending Unavailable Rosita Casas Referring Unavailable Ronald Cisneros Attending Unavailable Medications Current Medications Medication Drug Class(es) Dates Sig (Normalized) Sig (Original) MV & Min w/FA-DHA ( Gummies) 0.18-25 MG chewable tablet (1 source) Start: 12-29-2022 End: 12-29-2023 MV & Min w/FA-DHA ( Gummies) 0.18-25 MG chewable tablet Indications: Missed menses Chew 0.18 mg in the morning. 30 tablet 11 12/29/2022 12/29/2023 Active Problems Problem Classification Problem Date Documented Da te Episodic/Chronic Acute and chronic tonsillitis (1 source) Amygdalolith; Translations: [Other chronic diseases of tonsils and adenoids] Onset: 10-14-2022 10-14-2022 Chronic Results Test Name Value Interpretation Reference Range Facility Quantiferon-TB Plus (Client Incubated)on 05-04-2023 Gamma interferon background IA Qn (Bld) 0.00 International_Unit/mL Invalid Interpretation Code [facility] Comment on above: Performed By: #### 1 [id number], [id number], [id number], [id number] #### [facility] [address] [place] [address] 06435 M. tuberculosis stim IFN-g by CD4+ CD8+ T-cells corrected for background Qn (Bld) 0.01 International_Unit/mL Invalid Interpretation Code [facility] Comment on above: Performed By: #### 1 [id number], [id number], [id number], [id number] #### [facility] [address] [place] [address] 16585 M. tuberculosis stim IFN-g by CD4+ T-cells corrected for background Qn (Bld) 0.01 International_Unit/mL Invalid Interpretation Code [facility] Comment on above: Performed By: #### 1 [id number], [id number], [id number], [id number] #### [facility] [address] [place] [address] 72012 M. tuberculosis stim IFN-g Ql (Bld) [Interp] Negative Invalid Interpretation Code Negative [facility] Comment on above: Result Comment: No r esponse to M tuberculosis antigens detected. Infection with M tuberculosis is unlikely, but high risk individuals should be considered for additional testing (ATS/IDSA/CDC Clinical Practice Guidelines, 2017). The reference range is an Antigen minus Nil result of <0.35 IU/mL. The specimen received for QuantiFERON testing was incubated by the ordering institution. Specific procedures outlined in our Directory of Services and in the package insert for the QuantiFERON Gold (In Tube) test must be followed to enable for proper stimulation of cells for the production of interferon gamma. Chemiluminescence immunoassay methodology Performed at: [employer] [id number] PhD Nathaniel Boone Performed By: #### 1 [id number], [id number], [id number], [id number] #### [facility] [address] [place] [address] 40473 Mitogen stimulated gamma interferon corrected for background Qn (Bld) >10.00 Invalid Interpretation Code [facility] Comment on above: Performed By: #### 1 [id number], [id number], [id number], [id number] #### [facility] [address] [place] [address] 22877 Service comment (Unsp spec) [Interp] Comment Invalid Interpretation Code [facility] Comment on above: Result Comment: Jaime tiFERON-TB Gold Plus is a qualitative indirect test for M tuberculosis infection (including disease) and is intended for use in conjunction with risk assessment, radiography, and other medical and diagnostic evaluations. The QuantiFERON-TB Gold Plus result is determined by subtracting the Nil value from either TB antigen (Ag) value. The Mitogen tube serves as a control for the test. Performed By: #### 1 [id number], [id number], [id number], 8341875 #### [facility] [address] [place] [address] 52987 Hep Bs Abon 05-03-2023 HBV surface Ab Ql (S) Non-Reactive Invalid Interpretation Code [facility] Comment on above: Result Comment: Non Reactive: Inconsistent with immunity, less than 10 mIU/mL Reactive: Consistent with immunity, greater than 9.9 mIU/mL Performed at: [facility] [id number] PhD Nathaniel Boone Performed By: #### 1 6980464, [id number], [id number], 6567011 #### [facility] [address] [place] [address]30 Measles/Mumps/Rubella Immuni tyon 05-03-2023 MeV IgG IA Qn (S) 117.0 A unit/mL Invalid Interpretation Code Immune >16.[address] [facility] Comment on above: Result Comment: Nega tive <13.5 Equivocal 13.5 - 16.4 Positive >16.4 Presence of antibodies to Rubeola is presumptive evidence of immunity except when acute infection is suspected. Performed By: #### 1 [id number], [id number], [id number], 2141300 #### [facility] [address] [place] [address] MuV IgG IA Qn (S) 31.7 A unit/mL Invalid Interpretation Code Immune >10.[address] [facility] Comment on above: Result Comment: Nega tive <9.0 Equivocal 9.0 - 10.9 Positive >10.9 A positive result generally indicates past exposure to Mumps virus or previous vaccination. Performed at: [address] [id number] PhD Nathaniel Boone Performed By: #### 1 7353352, [id number], [id number], 1372144 #### [facility] [address] [place], [place] [address] Rubella virus IgG Qn (S) 2.07 [IU]/mL Invalid Interpretation Code Immune >0.[address] [facility] Comment on above: Result Comment: Non- immune <0.90 Equivocal 0.90 - 0.99 Immune >0.99 Performed By: #### 1 [id number], [id number], [id number], [id number] #### [facility] [address] [place] [address] 04959 Varic IgGon 05-03-2023 VZV IgG IA Qn (S) 180 Invalid Interpretation Code Immune >[address] [facility] Comment on above: Result Comment: Nega tive <135 Equivocal 135 - 165 Positive >165 A positive result generally indicates exposure to the pathogen or administration of specific immunoglobulins, but it is not indication of active infection or stage of disease. Performed at: [address] [id number] PhD Nathaniel Boone Performed By: #### 1 7920624, [id number], [id number], 0304135 #### [facility] [address] [place] [address] 56011 ALL CBC WITH AUTO DIFFon BASOPHILS ABSOLUTE AUTO 0.0 [facility] Basophils/100 WBC (Bld) 0.3 % 0.2 - 2.0 % [facility] Eosinophils/100 WBC (Bld) 0.9 % 0.9 - 7.0 % [facility] Erythrocyte distribution width (RBC) [Ratio] 12.3 % 11.0 - 15.0 % [facility] Hematocrit (Bld) [Volume fraction] 35.3 % Low 36.0 - 48.0 % [facility] Hemoglobin (Bld) [Mass/Vol] 11.7 g/dL Low 12.0 - 16.0 g/dL [facility] IMMATURE GRANULOCYTES ABS AUTO 0.18 High [facility] Immature granulocytes/100 WBC (Bld) 1.8 % High 0.0 - 0.5 % [facility] Interpretation and review of laboratory results Abnormal [facility] LYMPHOCYTES ABSOLUTE AUTO 1.4 [facility] Lymphocytes/100 WBC (Bld) 14.1 % Low 20.5 - 60.0 % [facility] MCH (RBC) [Entitic mass] 31.7 pg 26.7 - 34.0 pg [facility] MCHC (RBC) [Mass/Vol] 33.1 g/dL 29.9 - 35.2 g/dL [facility] MCV (RBC) [Entitic vol] 95.7 fL 81.0 - 99.0 fL [facility] MONOCYTES ABSOLUTE AUTO 0.4 [facility] Monocytes/100 WBC (Bld) 4.0 % 1.7 - 12.0 % [facility] NEUTROPHILS ABSOLUTE AUTO 8.1 [facility] Neutrophils/100 WBC (Bld) 78.9 % High 43.0 - 75.0 % [facility] Platelet mean volume (Bld) [Entitic vol] 9.4 fL Low 9.5 - 13.5 fL [facility] TBH EO # 0.1 [facility] PLT [address] [facility] RBC 3.69 Low [facility] WBC 10.2 [facility] .Interpretation:on 3 HCV Ab IA Ql Comment Invalid Interpretation Code [facility] Comment on above: Result Comment: Not infected with HCV unless early or acute infection is suspected (which may be delayed in an immunocompromised individual), or other evidence exists to indicate HCV infection. Performed at: [facility] [id number] PhD Nathaniel Boone Performed By: #### 1 8343056, [id number], [id number], 9556577 #### [facility] [address] [place] [address] 86589 C Urineon 01-08-2023 Bacteria identified Cx Nom (U) Microbiology PROCEDURE: Urine Culture [R1] SOURCE: U CleanCatch BODY SITE: COLLECTED DATE/TIME: 01/06/2023 14:59 EDT RECEIVED DATE/TIME: 01/06/2023 16:04 EDT START DATE/TIME: 01/06/2023 16:04 EDT FREE TEXT SOURCE: Adrian HARRISON DO, DO, Corey R FINAL REPORTS Final Report [] Verified Date/Time: 01/08/2023 11:38 EDT 1,000 cfu/ml Mixed skin contaminants Performing Locations R1: This test was performed at: [facility], [address] [place] [address], [phone]- , , Normal [facility] Comment on above: Performed By: #### 1 [id number], [id number], [id number], 8554730 #### [facility] [address] [place] [address] 75139 HCV Antibody RFX to Quant PC Isreal 01-08-2023 HCV IgG IA Ql Non-Reactive Invalid Interpretation Code Non Reactive [facility] Comment on above: Result Comment: Perf ormed at: [employer] [id number] PhD Nathaniel Boone Performed By: #### 1 8687725, [id number], [id number], [id number] #### [facility] [address] [place] [address] 49409 HIV Screen 4th Generation wR fxon 01-08-2023 HIV 1+2 Ab+HIV1 p24 Ag IA Ql Non-Reactive Invalid Interpretation Code Non Reactive [facility] Comment on above: Result Comment: HIV Negative HIV-1/HIV-2 antibodies and HIV-1 p24 antigen were NOT detected. There is no laboratory evidence of HIV infection. Performed at: [employer] [id number] PhD Nathaniel Boone Performed By: #### 2 766010, 9330939, [id number], 34272292, 634644026, 5079177, 019688187, [id number], 737253071 #### [facility] [address] [place] [address] 47220 Hep Bs Agon 01-08-2023 HBV surface Ag IA Ql Negative Invalid Interpretation Code Negative [facility] Comment on above: Result Comment: Perf ormed at: [address] [id number] PhD Nathaniel Boone Performed By: #### 1 3618872, [id number], [id number], 8085745 #### [facility] [address] [place] [address] 79165 RPR with Conf Rfxon 01-09-20 Reagin Ab RPR Ql (S) Non-Reactive Invalid Interpretation Code Non Reactive [facility] Comment on above: Result Comment: Perf ormed at: [address] [id number] PhD Nathaniel Boone Performed By: #### 2 435745, 9778412, [id number], 10787034, 040618288, 5439028, 999669876, 6852077658, 038023764 #### [facility] [address] [place] [address] 99107 Rubella IgGon 01-08-2023 Rubella virus IgG Qn (S) 3.20 [IU]/mL Invalid Interpretation Code Immune >0.[address] [facility] Comment on above: Result Comment: Non- immune <0.90 Equivocal 0.90 - 0.99 Immune >0.99 Performed at: [address] [id number] PhD Nathaniel Boone Performed By: #### 1 8888865, [id number], [id number], 6235933 #### [facility] [address] [place] [address] 76815 ABO/Rhon 01-06-2023 ABO/Rh Positive Invalid Interpretation Code [facility] Comment on above: Performed By: #### 1 4798980, [id number], 838055025, [id number] #### [facility] [address] [place] [address] ABO/Rh History Checkon 01-06 ABO/Rh History Check Verified Hx Blood Type Normal [facility] Comment on above: Performed By: #### 1 7819200, [id number], [id number], [id number] #### [facility] [address] [place] [address] ABSCon 01-06-2023 ABSC Gel Interp Negative Normal [facility] Comment on above: Performed By: #### 1 0083515, [id number], 885793908, 4023715 #### [facility] [address] [place] [address] BLOOD BANKOrdered By: Hollie Zavala on 01-06-2023 ABO/Rh Interp Positive Invalid Interpretation Code [facility] BB Subsection ABSC Gel Interp Negative (01/06/23 3:05 PM) Normal [facility] BB Subsection CBC w/Indiceson 01-06-2023 Erythrocyte distribution width (RBC) [Ratio] 12.8 % Normal 10.9-14.[address] [facility] Comment on above: Performed By: #### 2 789792, 8244957, 6574164928, 83857901, 098428682, 8104523, 919339019, 5808033712, 865589067 #### [facility] [address] [place] [address] Hematocrit (Bld) [Volume fraction] 40.8 % Normal 34.0-46.[address] [facility] Comment on above: Performed By: #### 2 937034, 6875127, 6034270845, 79793823, 411135290, 6931563, 622133614, 1854749230, 291549448 #### [facility] [address] [place] [address] Hemoglobin (Bld) [Mass/Vol] 13.8 g/dL Normal 12.0-16.[address] [facility] Comment on above: Performed By: #### 2 492751, 3309103, 7142404999, 31276426, 326937948, 4479121, 472692026, 9292009902, 066960230 #### [facility] [address] [place] [address] MCH (RBC) [Entitic mass] 31.6 pg Normal 27.0-34.[address] [facility] Comment on above: Performed By: #### 2 592873, 8631536, 0839101561, 64214519, 312208499, 4715107, 515483468, 0440881232, 704499754 #### [facility] [address] [place] [address] MCHC (RBC) [Mass/Vol] 33.7 g/dL Normal 31.4-36.0 [facility] Comment on above: Performed By: #### 2 739418, 5495660, 5183392137, 47665977, 289421406, 5168801, 579544862, 7994803620, 997037026 #### [facility] [address] [place] [address] MCV (RBC) [Entitic vol] 93.7 fL Normal 80.0-100.[address] [facility] Comment on above: Performed By: #### 2 150784, 9858429, 5439927822, 63264859, 766040845, 9664806, 080310831, 3628911627, 259820509 #### [facility] [address] [place] [address] Platelet mean volume (Bld) [Entitic vol] 8.1 fL Normal 6.4-10.[address] [facility] Comment on above: Performed By: #### 2 262265, 5572702, 5094977732, 80147185, 139294549, 3476254, 035044723, 4159678789, 272234034 #### [facility] [address] [place] [address] Platelets (Bld) [#/Vol] 345.0 E9/L Normal 150.0-500.[address] [facility] Comment on above: Performed By: #### 2 543213, 7614781, 1567593489, 69392195, 521754693, 2203918, 525924297, 8157190350, 042875380 #### [facility] [address] [place] [address] RBC (Bld) [#/Vol] 4.4 E12/L Normal 4.3-5.[address] [facility] Comment on above: Performed By: #### 2 440877, 7306354, 9197856431, 16135462, 566394876, 2813885, 609036612, 3377772258, 032862104 #### [facility] [address] [place] [address] WBC corrected for nucl RBC Auto (Bld) [#/Vol] 9.8 E9/L Normal 4.0-11.[address] [facility] Comment on above: Performed By: #### 2 225393, 5465842, 5012445566, 44508330, 484864126, 1836921, 865221727, 3110337245, 851128435 #### [facility] [address] [place] [address] CHEMISTRYOrdered By: Maryann Brooke on 01-06-2023 HbA1c (Bld) [Mass fraction] 5.0 % Normal <=5.9% [facility] CHEMISTRYOrdered By: SYSTEM SYSTEM on 01-06-2023 TSH Qn 1.74 m[IU]/L Normal 0.34 - 5.60 mcIU/mL [facility] Remisol Consent for Treatmenton 12-12 Consent for Treatment [id number] .[id number] Normal [facility] HEMATOLOGYOrdered By: Hollie Zavala on 01-06-2023 [...] Normal 4.0 - 11.0 E9/L [facility] HemeAutoSS [id number] 01-06-2023 HbA1c (Bld) [Mass fraction] 5.0 % Normal <=5.[address] [facility] Comment on above: Performed By: #### 2 489915, 1475950, 5753703517, 31100185, 444230656, 1718591, 467252359, 9041699258, 847381334 #### [facility] [address] [place] [address] Physician Orderon 01-06-2023 Physician Order [id number] .00TIFF Normal [facility] TSHon 01-06-2023 TSH Qn 1.74 m[IU]/L Normal 0.34-5.[address] [facility] Comment on above: Performed By: #### 2 976383, 9760879, 0507445897, 72159027, 583763466, 1602828, 588553651, 1954690784, 980906458 #### [facility] [address] [place] [address] US Thyroidon 10-21-2022 US Thyroid Exam Date/Time: [...] Douglas MD Transcribed by: JAG Technologist: THALIA Ulloa [facility] Consent for Treatmenton 10-11 Consent for Treatment [id number] .00CD:[address] [facility] Physician Orderon 10-17-2022 Physician Order [id number] .00CD:[address] [facility] PAP [id number] 08-12-2022 Cytology report Cyto stain Doc (Cvx/Vag) Note Invalid Interpretation Code [facility] Comment on above: Result Comment: TEST S RESULT FLAG UNITS REF RANGE LAB Clinician Provided Cytology Information Source.............Cervix No. of containers..01 ThinPrep Vial DIAGNOSIS: 01 NEGATIVE FOR INTRAEPITHELIAL LESION OR MALIGNANCY. PREDOMINANCE OF COCCOBACILLI CONSISTENT WITH SHIFT IN VAGINAL KELLY IS PRESENT. THIS SPECIMEN WAS RESCREENED PART OF OUR WAREHOUSE HAND PROGRAM. Specimen adequacy: 01 Satisfactory for evaluation. Endocervical and/or squamous metaplastic cells (endocervical component) are present. Performed by: Kurtis Freedman, [employer] ([facility]) QC reviewed by: Kurtis Eugene, [employer] ([facility]) . 01 Note: Note 01 The Pap [...] High <-Panic Low,>-Panic High,A-Abnormal,AA-Critical Abnormal Performed at: [facility] [address] [phone] Maryellen Knox MD, Performed at: [facility] [address] [id number] MD Lisette Bojorquez Performed By: #### 1 7226735, [id number], 015634500, 6525856 #### [facility] [address] [place] [address] PAP [id number] 08-03-2022 Collection Technique BRUSH-SPATULA Normal [facility] Comment on above: Performed By: #### 1 7877711, 8456086479, 682630322, 5849198 #### [facility] [address] [place] [address] Gynecological Body Site CERVIX Normal [facility] Comment on above: Performed By: #### 1 0372671, 4881054031, 747763007, 3068770 #### [facility] [address] [place] [address] Physician Orderon 08-03-2022 Physician Order [id number] .00CD:[address] [facility] Encounters Encounter Date Encounter Type Care Provider Facility Start: 05-18-2023 ambulatory Ronald Mcintosh ty:[facility] Start: 05-02-2023 End: 05-03-2023 ambulatory Becki Rodriguez ENRIQUETA Facility:[facility] Start: 04-27-2023 [facility] Result Encounter Adrian Raineyzio DO Work Phone: [facility] Unsolicited Start: 04-27-2023 [facility] Result Encounter Adrian Harrison DO Work Phone: [facility] Unsolicited Start: 04-10-2023 End: 04-10-2023 ambulatory ADRIAN HARRISON Not Available Start: 03-10-2023 End: 03-10-2023 ambulatory ROSITA CASAS Not Available Start: 03-09-2023 End: 03-09-2023 ambulatory HAVEN MERA Not Available Start: 02-06-2023 End: 02-06-2023 ambulatory ADRIAN MEJIAO Not Available Start: 01-06-2023 End: 01-07-2023 ambulatory Adrian MEJIAO Facility:[facility] Start: 01-06-2023 End: 01-06-2023 Patient encounter procedure Adrian HARRISON [facility] Start: 10-20-2022 End: 10-21-2022 ambulatory Rosita M Casas Facility:[facility] Start: 10-20-2022 End: 10-20-2022 Patient encounter procedure Rosita Casas [facility] Start: 08-03-2022 End: 08-04-2022 ambulatory Giulia J Thad Facility:[facility] Procedures Date Procedure Procedure Detail Performing Clinician Start: 04-27-2023 ALL CBC WITH AUTO DIFF Adrian Harrison DO Work Phone: Plan of Treatment Date Care Activity Detail Author Start: 05-09-2023 End: 05-09-2023 Patient encounter procedure 05/09/2023 2:40 PM EST Routine [facility] [address] [place] [address] Haven Mera PA [address] [place] [address] [facility] Start: 11-11-2022 Influenza vaccination Influenza Vacc ine (#1) [facility] Immunizations Immunization Date Immunization Notes Care Provider Fa cility 02-17-2017 hepatitis A vaccine, pediatric/adolescent dosage, 2 dose schedule Adrian Hunter DO Work Phone: [facility] 02-17-2017 meningococcal B vacc ine, recombinant, OMV, adjuvanted Adrian Hunter DO Work Phone: [facility] 11-11-2016 meningococcal B vacc ine, recombinant, OMV, adjuvanted Adrian Hunter DO Work Phone: [facility] 11-11-2016 meningococcal oligosaccharide (groups A, C, Y and W-135) diphtheria toxoid conjugate vaccine (MCV4O) Adrian Hunter DO Work Phone: [facility] 08-01-2016 hepatitis A vaccine, pediatric/adolescent dosage, 2 dose schedule Adrian Hunter DO Work Phone: [facility] 08-01-2016 typhoid capsular polysaccharide vaccine Adrina Hunter DO Work Phone: [facility] 10-26-2011 tetanus toxoid, redu garcia diphtheria toxoid, and acellular pertussis vaccine, adsorbed Adrian Hunter DO Work Phone: [facility] 07-28-2004 diphtheria, tetanus toxoids and acellular pertussis vaccine, unspecified formulation Adrian Hunter DO Work Phone: [facility] 07-28-2004 measles, mumps and r ubella virus vaccine Adrian Hunter DO Work Phone: [facility] 07-28-2004 poliovirus vaccine, inactivated Adrian Hunter DO Work Phone: [facility] 12-20-2000 pneumococcal conjuga te vaccine, 7 valent Adrian Hunter DO Work Phone: [facility] 07-12-2000 diphtheria, tetanus toxoids and acellular pertussis vaccine, unspecified formulation Adrian Hunter DO Work Phone: [facility] 07-12-2000 haemophilus influenz ae type b vaccine, PRP-OMP conjugate Adrian Hunter DO Work Phone: [facility] 07-12-2000 measles, mumps and r ubella virus vaccine Adrian Hunter DO Work Phone: [facility] 07-12-2000 pneumococcal conjuga te vaccine, 7 valent Adrian Hunter DO Work Phone: [facility] 07-12-2000 varicella virus vaccine Core y Hunter DO Work Phone: [facility] 02-16-2000 hepatitis B vaccine, pediatric or pediatric/adolescent dosage Adrian Hunter DO Work Phone: [facility] 02-16-2000 pneumococcal conjuga te vaccine, 7 valent Adrian Hunter DO Work Phone: [facility] 02-16-2000 poliovirus vaccine, inactivated Adrian Hunter DO Work Phone: [facility] 1999 diphtheria, tetanus toxoids and acellular pertussis vaccine, unspecified formulation Adrian Hunter DO Work Phone: [facility] 1999 haemophilus influenz ae type b vaccine, PRP-OMP conjugate Adrian Hunter DO Work Phone: [facility] 1999 diphtheria, tetanus toxoids and acellular pertussis vaccine, unspecified formulation Adrian Hunter DO Work Phone: [facility] 1999 haemophilus influenz ae type b vaccine, PRP-OMP conjugate Adrian Hunter DO Work Phone: [facility] 1999 hepatitis B vaccine, pediatric or pediatric/adolescent dosage Adrian Hunter DO Work Phone: [facility] 1999 poliovirus vaccine, inactivated Adrian Hunter DO Work Phone: [facility] 1999 diphtheria, tetanus toxoids and acellular pertussis vaccine, unspecified formulation Adrian Hunter DO Work Phone: [facility] 1999 haemophilus influenz ae type b vaccine, PRP-OMP conjugate Adrian Hunter DO Work Phone: [facility] 1999 hepatitis B vaccine, pediatric or pediatric/adolescent dosage Adrian Hunter DO Work Phone: [facility] 1999 poliovirus vaccine, inactivated Adrian Mejiao DO Work Phone: [facility] Healthcare Payers Date Payer Category Payer Unknown [id number] 2021 Unknown [id number] 1999 Unknown [id number] 2.16.84 [id number] 1999 Unknown [id number] 1999 Unknown [id number] 1999 Unknown [id number] 1999 Unknown [id number] 2.16.8 [id number] 1999 Unknown [id number] 2.16.8 [id number] 1999 Unknown [id number] 2.16.8 [id number] 1999 Unknown [id number] 2.16.8 [id number] 1999 Unknown [id number] 2.16.8 [id number] Social History Date Type Detail Facility Tobacco smoking status [facility] Start: 10-11-2022 End: 03-10-2023 Sex Assigned At Female [facility] Start: 10-14-2022 Tobacco smoking status NHIS Never smoked tobacco [facility] Start: 10-14-2022 Tobacco use and exposure Smokeless tobacco non-user [facility] Start: 04-10-2023 Alcohol intake Current drinker of alcohol (finding) [facility] Start: 10-11-2022 End: 04-10-2023 Alcohol intake [facility] Within the last year , have you been afraid of your partner or ex-partner? No [facility] Are you now , , , , never or living with a partner? Living with partner [facility] How often to you hav e a drink containing alcohol? 2-4 times a month [facility] How many standard dr inks containing alcohol do you have on a typical day? 3 or 4 [facility] How often do you hav e 6 or more drinks on 1 occasion? Less than monthly [facility] How hard is it for y ou to pay for the very basics like food, housing, medical care, and heating Not very hard [facility] Do you feel stress - tense, restless, nervous, or anxious, or unable to sleep at night because your mind is troubled all the time - these days [OSQ] Not at all [facility] (I/We) worried wheth er (my/our) food would run out before (I/we) got money to buy more. Never true [facility] In the past 12 month s, has lack of transportation kept you from medical appointments or from getting medications? No [facility] Start: 10-13-2022 Alcohol Comment Caffeine intake: 1-2 cups per day pop [facility] Start: 11-22-2022 [facility] Start: 2000 Sex Assigned At Not on file [facility] Evaluation + Plan note 01-06-2023 Note Date & Type Note Facility 01-06-2023 Evaluation + Plan note Diagnostic Tests PendingUrine Culture 01/06/23HIV Screen 4th Generation wRfx 01/06/23Hepatitis B Surface Antigen 01/06/23RPR with Conf Rfx 01/06/23Rubella Antibody IgG 01/06/23HCV Antibody RFX to Quant PCR 01/06/23 [facility] Evaluation + Plan note Note Date & Type Note Facility Evaluation + Plan note No data available for this section [facility] Hospital Discharge instructions Note Date & Type Note Facility Hospital Discharge instructions No data available for this section [facility] Progress note Note Date & Type Note Facility Progress note No data available for this section [facility] Summary Purpose Family History No Family History Records Found Advance Directives No Advanced Directives Records FoundNo Advanced Directives Records Found Additional Source Comments Patient Care team informatio n (unrecognized section and content) 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 Specialty Start Date End Date Rosita Casas MD [address] [place] [address] PCP - Medical [facility] 08/11/22 Rosita Casas MD [address] [place] [address] PCP - General Family Medicine 10/07/22 Parul Henderson PA [address] [place] [address] Physician [facility] 10/07/22 INFORMATION SOURCE (unrecogn ized section and content) DATE CREATED AUTHOR 04/10/2023 [facility] DATE CREATED AUTHOR [facility]/19[facility]2023 [facility] FOR RECORDS PERTAINING TO PATIENTS WHO ARE [...] BE BASED ON THE PRIMARY CLINICAL RECORDS. [email or web address] provides no warranty or guarantee of the accuracy or completeness of information in this document.
== END 2023-05-24 12:55 | disposition home or self-care (01) ==
LOC: NOMS 12:55
PROVIDERS: Visit Provider Obstetrics & Gynecology
DX: O44.40 Low lying placenta NOS or without hemorrhage, unspecified trimester (principal)
CPT/HCPCS: 76815; 76817

== ENCOUNTER 2023-07-04 13:54 | Outpatient (OUT) | payer MEDICAID, SELFPAY ==
--- NOTE | 2023-07-04 13:57 | US_ITS ---
[address] [address] Patient Name: NIDIA PEDRO MRN: [id number] date: 2000 Sex: F Assigned Patient Location: [facility] Current Patient Location: [facility] Accession/Order Number: [id number] Exam Date: 07/04/2023 13:58 Report Date: 07/04/2023 15:00 At the request of: ADRIAN GUSMAN Procedure: US OB growth EXAMINATION: US OB growth HISTORY: SIZE INCONSISTENT WITH DATES COMPARISON: 04/04/2023 FINDINGS: Heart Rate: 141.0 bpm Amniotic Fluid Volume: 10.8 cm Number: 1.0 Position: Cephalic presentation, longitudinal lie Maximum Vertical Pocket: 2.3 cm cm 2.9 cm cm 3.1 cm cm 2.5 cm cm BIOMETRY: BPD: 7.9 cm cm; 31 weeks 6 days; 4% HC: 30.9 cmcm; 34 weeks 3 days , 25% AC: 30.3 cm cm; 34 weeks 2 days, 62% FL: 6.4 cm cm; 32 weeks 6 days; 13.8 % % EFW: 2242.4 grams, 4 lbs. 15 oz., 33% FL/AC: 21.0 FL/BPD: 80.2 HC/AC: 1.0 GESTATIONAL AGE: Age by EDC: 34 weeks 0 days AYAH by EDC: 08/15/2023 Age by US: 33 weeks 0 days AYAH by US: 08/22/2023 US/US OB growth IMPRESSION: BPD 4th percentile, otherwise normal interval growth Electronically authenticated by: PARTH PEDRO Date: 07/04/2023 15:00
--- OUTSIDE RECORDS SUMMARY | 2023-07-04 14:00 | XMS_ITS | CCD ---
Author Organization [facility] Care Team Providers Care Workers Compensation Defense Attorney Name Role Phone Rosita Casas Primary Care Physician Rosita Casas MD Unavailable Rosita Casas MD Primary Care Provider Santiago ARMENTA, Parul Don Unavailable Adrian GUSMAN Admitting Unavailable Adrian GUSMAN Attending Unavailable Giulia Oneil Admitting Unavailable Giulia Oneil Attending Unavailable Becki ROBISON Attending Unavailable Rosita Casas Admitting Unavailable Rosita Casas Attending Unavailable Rosita Casas Referring Unavailable Ronald Cisneros Attending Unavailable HAVEN MERA Attending Unavailable ROSITA CASAS Attending Unavailable ADRIAN GUSMAN Attending Unavailable HAVEN MERA Attending Unavailable ADRIAN GUSMAN Attending Unavailable ADRIAN GUSMAN Attending Unavailable ADRIAN GUSMAN Attending Unavailable Medications Current Medications Medication Drug [...] Qn (Bld) 0.00 International_Unit/mL Invalid Interpretation Code [facility] Comment on above: Performed By: #### 1 [id number], [id number], [id number], [id number] #### [facility] [address] [place] [address]88 M. tuberculosis stim IFN-g by CD4+ CD8+ T-cells corrected for background Qn (Bld) 0.01 International_Unit/mL Invalid Interpretation Code [facility] Comment on above: Performed By: #### 1 [id number], [id number], [id number], [id number] #### [facility] [address] [place] [address] M. tuberculosis stim IFN-g by CD4+ T-cells corrected for background Qn (Bld) 0.01 International_Unit/mL Invalid Interpretation Code [facility] Comment on above: Performed By: #### 1 [id number], [id number], [id number], [id number] #### [facility] [address] [place] [address] M. tuberculosis stim IFN-g Ql (Bld) [Interp] Negative Invalid Interpretation Code Negative [facility] Comment on above: Result Comment: No r [...] interferon gamma. Chemiluminescence immunoassay methodology Performed at: [place] [id number] PhD Nathaniel Boone Performed By: #### 1 7862738, [id number], [id number], [id number] #### [facility] [address] [place] [address] [place] [address] Mitogen stimulated gamma interferon corrected for background Qn (Bld) >10.00 Invalid Interpretation Code [facility] Comment on above: Performed By: #### 1 6857592, [id number], [id number], 0499697 #### [facility] [address] [place] [address] Service comment (Unsp spec) [Interp] Comment Invalid Interpretation Code [facility] Comment on above: Result Comment: Jaime tiFERON-TB [...] for the test. Performed By: #### 1 [id number], [id number], [id number], [id number] #### [facility] [address] [place] [address]187 Hep Bs Abon 05-03-2023 HBV surface Ab Ql (S) Non-Reactive Invalid Interpretation Code [facility] Comment on above: Result Comment: Non Reactive: Inconsistent with immunity, less than 10 mIU/mL Reactive: Consistent with immunity, greater than 9.9 mIU/mL Performed at: [facility] [id number] PhD Nathaniel Boone Performed By: #### 1 1544792, [id number], [id number], 6082534 #### [facility] [address] [place] [address] Measles/Mumps/Rubella Immuni tyon 05-03-2023 MeV IgG IA Qn (S) 117.0 A unit/mL Invalid Interpretation Code Immune >16.4 [facility] Comment on above: Result Comment: Nega tive <13.5 Equivocal 13.5 - 16.4 Positive >16.4 Presence of antibodies to Rubeola is presumptive evidence of immunity except when acute infection is suspected. Performed By: #### 1 [id number], [id number], [id number], 7114856 #### [facility] [address] [place] [address] MuV IgG IA Qn (S) 31.7 A unit/mL Invalid Interpretation Code Immune >10.9 [facility] Comment on above: Result Comment: Nega tive <9.0 Equivocal 9.0 - 10.9 Positive >10.9 A positive result generally indicates past exposure to Mumps virus or previous vaccination. Performed at: [place] [address] [id number] PhD Nathaniel Boone Performed By: #### 1 7999109, [id number], [id number], 4097165 #### [facility] [address] [place], [place] [address] Rubella virus IgG Qn (S) 2.07 [IU]/mL Invalid Interpretation Code Immune >0.99 [facility] Comment on above: Result Comment: Non- immune <0.90 Equivocal 0.90 - 0.99 Immune >0.99 Performed By: #### 1 7003953, [id number], [id number], [id number] #### [facility] [address] [place] [address] Varic IgGon 05-03-2023 VZV IgG IA Qn (S) 180 Invalid Interpretation Code Immune >165 [facility] Comment on above: Result Comment: Nega tive <135 Equivocal 135 - 165 Positive >165 A positive result generally indicates exposure to the pathogen or administration of specific immunoglobulins, but it is not indication of active infection or stage of disease. Performed at: [address] [id number] PhD Nathaniel Boone Performed By: #### 1 [id number], [id number], [id number], 6389364 #### [facility] [address] [place], [place] [address] ALL CBC WITH AUTO DIFFon BASOPHILS ABSOLUTE AUTO 0.0 [facility] Basophils/100 WBC (Bld) 0.3 % 0.2 - 2.0 % [facility] Eosinophils/100 WBC (Bld) 0.9 % 0.9 - 7.0 % [facility] Erythrocyte distribution width (RBC) [Ratio] 12.3 % 11.0 - 15.0 % [facility] Hematocrit (Bld) [Volume fraction] 35.3 % Low 36.0 - 48.0 % [facility] Hemoglobin (Bld) [Mass/Vol] 11.7 g/dL Low 12.0 - 16.0 g/dL [facility] IMMATURE GRANULOCYTES ABS AUTO 0.18 High [facility] Immature granulocytes/100 WBC (Bld) 1.8 % High 0.0 - 0.5 % [facility] Interpretation and review of laboratory results Abnormal [facility] LYMPHOCYTES ABSOLUTE AUTO 1.4 [facility] Lymphocytes/100 WBC (Bld) 14.1 % Low 20.5 - 60.0 % [facility] MCH (RBC) [Entitic mass] 31.7 pg 26.7 - 34.0 pg [facility] MCHC (RBC) [Mass/Vol] 33.1 g/dL 29.9 - 35.2 g/dL [facility] MCV (RBC) [Entitic vol] 95.7 fL 81.0 - 99.0 fL [facility] MONOCYTES ABSOLUTE AUTO 0.4 [facility] Monocytes/100 WBC (Bld) 4.0 % 1.7 - 12.0 % [facility] NEUTROPHILS ABSOLUTE AUTO 8.1 High [facility] Neutrophils/100 WBC (Bld) 78.9 % High 43.0 - 75.0 % [facility] Platelet mean volume (Bld) [Entitic vol] 9.4 fL Low 9.5 - 13.5 fL [facility] TBH EO # 0.1 [facility] PLT 255 [facility] RBC 3.69 Low [facility] WBC 10.2 [facility] .Interpretation:on 3 HCV Ab IA Ql Comment Invalid Interpretation Code [facility] Comment on above: Result Comment: Not infected with HCV unless early or acute infection is suspected (which may be delayed in an immunocompromised individual), or other evidence exists to indicate HCV infection. Performed at: [facility] [id number] PhD Nathaniel Boone Performed By: #### 1 [id number], [id number], [id number], 4699711 #### [facility] [address] [place] [address] C Urineon 01-08-2023 Bacteria identified Cx Nom [...] Locations R1: This test was performed at: [facility], [address] [place] [address], [address]- , , Normal [facility] Comment on above: Performed By: #### 1 3688923, [id number], [id number], 9218565 #### [facility] [address] [place] [address] HCV Antibody RFX to Quant PC Isreal 01-08-2023 HCV IgG IA Ql Non-Reactive Invalid Interpretation Code Non Reactive [facility] Comment on above: Result Comment: Perf ormed at: [facility] [id number] PhD Nathaniel Boone Performed By: #### 1 7550215, [id number], [id number], [id number] #### [facility] [address] [place] [address] HIV Screen 4th Generation wR fxon 01-08-2023 HIV 1+2 Ab+HIV1 p24 Ag IA Ql Non-Reactive Invalid Interpretation Code Non Reactive [facility] Comment on above: Result Comment: HIV Negative HIV-1/HIV-2 antibodies and HIV-1 p24 antigen were NOT detected. There is no laboratory evidence of HIV infection. Performed at: [facility] [id number] PhD Nathaniel Boone Performed By: #### 2 608478, 0721695, [id number], 10206890, 739021231, 5937488, 866462512, [id number], 508875855 #### [facility] [address] [place] [address] Hep Bs Agon 01-08-2023 HBV surface Ag IA Ql Negative Invalid Interpretation Code Negative [facility] Comment on above: Result Comment: Perf ormed at: [address] [id number] PhD Nathaniel Boone Performed By: #### 1 6847239, [id number], 392392486, 1157348 #### [facility] [address] [place] [address]235 RPR with Conf Rfxon 01-09-20 23 Reagin Ab RPR Ql (S) Non-Reactive Invalid Interpretation Code Non Reactive [facility] Comment on above: Result Comment: Perf ormed at: [address] [id number] PhD Nathaniel Boone Performed By: #### 2 468561, 7741127, [id number], 18863256, 109283887, 7584196, 130253481, 6105502650, 588538546 #### [facility] [address] [place] [address] Rubella IgGon 01-08-2023 Rubella virus IgG Qn (S) 3.20 [IU]/mL Invalid Interpretation Code Immune >0.99 [facility] Comment on above: Result Comment: Non- immune <0.90 Equivocal 0.90 - 0.99 Immune >0.99 Performed at: [address] [id number] PhD Nathaniel Boone Performed By: #### 1 7739392, [id number], 711893329, 6786485 #### [facility] [address] [place] [address] ABO/Rhon 01-06-2023 ABO/Rh Positive Invalid Interpretation Code [facility] Comment on above: Performed By: #### 1 2843832, [id number], 409767505, 6668916 #### [facility] [address] [place] [address] ABO/Rh History Checkon 01-06 ABO/Rh History Check Verified Hx Blood Type Normal [facility] Comment on above: Performed By: #### 1 1257956, [id number], [id number], 0232039 #### [facility] [address] [place] [address] ABSCon 01-06-2023 ABSC Gel Interp Negative Normal [facility] Comment on above: Performed By: #### 1 0573901, [id number], 158739761, 0547069 #### [facility] [address] [place] [address] BLOOD BANKOrdered By: Hollie Zavala on 01-06-2023 ABO/Rh Interp Positive Invalid Interpretation Code [facility] BB Subsection ABSC Gel Interp Negative (01/06/23 3:05 PM) Normal [facility] BB Subsection CBC w/Indiceson 01-06-2023 Erythrocyte distribution width (RBC) [Ratio] 12.8 % Normal 10.9-14.2 [facility] Comment on above: Performed By: #### 2 433725, 2712509, 7343849273, 86326150, 684299481, 9921760, 275101710, 6536508391, 939814903 #### [facility] [address] [place] [address] Hematocrit (Bld) [Volume fraction] 40.8 % Normal 34.0-46.0 [facility] Comment on above: Performed By: #### 2 932920, 4029285, 9174967905, 99528579, 173878214, 4928723, 341223262, 4152642926, 436023644 #### [facility] [address] [place] [address] Hemoglobin (Bld) [Mass/Vol] 13.8 g/dL Normal 12.0-16.0 [facility] Comment on above: Performed By: #### 2 787183, 0540227, 9178851370, 24563622, 250448995, 6348284, 946072146, 9616698781, 619347274 #### [facility] [address] [place] [address] MCH (RBC) [Entitic mass] 31.6 pg Normal 27.0-34.0 [facility] Comment on above: Performed By: #### 2 264162, 6549483, 3705543201, 05594677, 424294393, 6183662, 065532989, 6777923154, 036020617 #### [facility] [address] [place] [address] MCHC (RBC) [Mass/Vol] 33.7 g/dL Normal 31.4-36.0 [facility] Comment on above: Performed By: #### 2 736166, 9996842, 0870638380, 38639542, 035858544, 1412185, 928783323, 1812003994, 115757444 #### [facility] [address] [place] [address] MCV (RBC) [Entitic vol] 93.7 fL Normal 80.0-100.0 [facility] Comment on above: Performed By: #### 2 853566, 9286641, 3159597668, 82674284, 353140800, 9888701, 915200904, 0125091393, 107358475 #### [facility] [address] [place] [address] Platelet mean volume (Bld) [Entitic vol] 8.1 fL Normal 6.4-10.8 [facility] Comment on above: Performed By: #### 2 731980, 1899144, 2897402007, 82165642, 720117032, 2687976, 992873782, 7861628611, 107293820 #### [facility] [address] [place] [address] Platelets (Bld) [#/Vol] 345.0 E9/L Normal 150.0-500.0 [facility] Comment on above: Performed By: #### 2 903476, 9563298, 8293730980, 80232323, 503661110, 7672940, 250201867, 5879044656, 936412138 #### [facility] [address] [place] [address] RBC (Bld) [#/Vol] 4.4 E12/L Normal 4.3-5.9 [facility] Comment on above: Performed By: #### 2 091258, 4439998, 3637046776, 87469315, 804000834, 1383503, 178877995, 3179188059, 682257283 #### [facility] [address] [place] [address] WBC corrected for nucl RBC Auto (Bld) [#/Vol] 9.8 E9/L Normal 4.0-11.0 [facility] Comment on above: Performed By: #### 2 538931, 4313035, 4329169048, 02760144, 624156517, 1138909, 724192216, 9164241418, 592624053 #### [facility] [address] [place] [address] CHEMISTRYOrdered By: Maryann Brooke on 01-06-2023 HbA1c (Bld) [Mass fraction] 5.0 % Normal <=5.9% [facility] ChemAutoSS CHEMISTRYOrdered By: SYSTEM SYSTEM on 01-06-2023 TSH Qn 1.74 m[IU]/L Normal 0.34 - 5.60 mcIU/mL [facility] Remisol Consent for Treatmenton 12-12 Consent for Treatment [id number] .00TIFF Normal [facility] HEMATOLOGYOrdered By: Hollie Zavala on 01-06-2023 Erythrocyte [...] Normal 4.0 - 11.0 E9/L [facility] HemeAutoSS [id number] 01-06-2023 HbA1c (Bld) [Mass fraction] 5.0 % Normal <=5.9 [facility] Comment on above: Performed By: #### 2 319736, 7448935, 6025595197, 50913606, 757908376, 1808870, 368739003, 7806714944, 854533901 #### [facility] [address] [place] [address] Physician Orderon 01-06-2023 Physician Order [id number] .00TIFF Normal [facility] TSHon 01-06-2023 TSH Qn 1.74 m[IU]/L Normal 0.34-5.60 [facility] Comment on above: Performed By: #### 2 578831, 3840601, 9202714070, 81580190, 147582764, 9422158, 744397957, 9460758531, 037720967 #### [facility] [address] [place] [address] US Thyroidon 10-21-2022 US Thyroid Exam Date/Time: [...] MD Transcribed by: JAG Technologist: THALIA Ulloa [facility] Consent for Treatmenton 10-11 Consent for Treatment [id number] .00CD:127 Normal [facility] Physician Orderon 10-17-2022 Physician Order [id number]#1 .00CD:127 Normal [facility] PAP [id number] 08-12-2022 Cytology report Cyto stain Doc (Cvx/Vag) Note Invalid Interpretation Code [facility] Comment on above: Result Comment: TEST S RESULT FLAG UNITS REF RANGE LAB Clinician Provided Cytology Information Source.............Cervix No. of containers..01 ThinPrep Vial DIAGNOSIS: 01 NEGATIVE FOR INTRAEPITHELIAL LESION OR MALIGNANCY. PREDOMINANCE OF COCCOBACILLI CONSISTENT WITH SHIFT IN VAGINAL KELLY IS PRESENT. THIS SPECIMEN WAS RESCREENED PART OF OUR CREOSOTING ENGINEER PROGRAM. Specimen adequacy: 01 Satisfactory for evaluation. Endocervical and/or squamous metaplastic cells (endocervical component) are present. Performed by: Kurtis Freedman, Vice President & General Manager [employer] ([facility]) QC reviewed by: Kurtis Eugene, Vice President & General Manager [employer] ([facility]) . 01 Note: Note 01 The [...] High,A-Abnormal,AA-Critical Abnormal Performed at: 01 [facility] [address] [id number] Maryellen Knox MD, Performed at: [facility] [address] [id number] MD Lisette Bojorquez Performed By: #### 1 [id number], [id number], 264961819, 2213388 #### [facility] [address] [place] [address] PAP [id number] 08-03-2022 Collection Technique BRUSH-SPATULA Normal [facility] Comment on above: Performed By: #### 1 1523700, [id number], 519892095, 5661000 #### [facility] [address] [place] [address] Gynecological Body Site CERVIX Normal [facility] Comment on above: Performed By: #### 1 4825330, [id number], 320709251, 4386955 #### [facility] [address] [place] [address] Physician Orderon 08-03-2022 Physician Order [id number] .00CD:127 Normal [facility] Encounters Encounter Date Encounter Type Care Provider Facility Start: 06-20-2023 End: 06-20-2023 ambulatory ADRIAN GUSMAN Not Available Start: 05-24-2023 End: 05-24-2023 ambulatory ADRIAN HUNTER Not Available Start: 05-18-2023 ambulatory Ronald Forresti ty:[facility] Start: 05-09-2023 End: 05-09-2023 ambulatory HAVEN MERA Not Available Start: 05-02-2023 End: 05-03-2023 ambulatory Becki ROBISON Facility:[facility] Start: 04-27-2023 [facility] Result Encounter Adrian Hunter DO Work Phone: [facility] Unsolicited Start: 04-27-2023 [facility] Result Encounter Adrian Hunter DO Work Phone: [facility] Unsolicited Start: 04-10-2023 End: 04-10-2023 ambulatory ADRIAN HUNTER Not Available Start: 03-10-2023 End: 03-10-2023 ambulatory ROSITA Tian AUGUSTO Not Available Start: 03-09-2023 End: 03-09-2023 ambulatory HAVEN MERA Not Available Start: 02-06-2023 End: 02-06-2023 ambulatory ADRIAN HUNTER Not Available Start: 01-06-2023 End: 01-07-2023 ambulatory Adrian R HUNTER Facility:[facility] Start: 01-06-2023 End: 01-06-2023 Patient encounter procedure Adrian R HUNTER [facility] Start: 10-20-2022 End: 10-21-2022 ambulatory Rosita Casas Facility:[facility] Start: 10-20-2022 End: 10-20-2022 Patient encounter procedure Rosita Tian Augusto [facility] Start: 08-03-2022 End: 08-04-2022 ambulatory Giulia Oneil Facility:[facility] Procedures Date Procedure Procedure Detail Performing Clinician Start: 04-27-2023 ALL CBC WITH AUTO DIFF Adrian Hunter DO Work Phone: Plan of Treatment Date Care Activity Detail Author Start: 05-09-2023 End: 05-09-2023 Patient encounter procedure 05/09/2023 2:40 PM EST Routine [facility] [address] [place] [id number] Haven Mera, PA [address] [place], [place] [id number] [facility] Start: 11-11-2022 Influenza vaccination Influenza Vacc ine (#1) [facility] Immunizations Immunization Date Immunization Notes Care Provider Fa cili 02-17-2017 hepatitis A vaccine, pediatric/adolescent dosage, 2 dose schedule Adrian Hunter DO Work Phone: [facility] 02-17-2017 meningococcal B vacc ine, recombinant, OMV, adjuvanted Adrian Hunter DO Work Phone: [facility] 11-11-2016 meningococcal B vacc ine, recombinant, OMV, adjuvanted Adrian Hunter DO Work Phone: [facility] 11-11-2016 meningococcal oligosaccharide (groups A, C, Y and W-135) diphtheria toxoid conjugate vaccine (MCV4O) Adrian [facility] DO Work Phone: [facility] 08-01-2016 hepatitis A vaccine, pediatric/adolescent dosage, 2 dose schedule Adrian [facility] DO Work Phone: [facility] 08-01-2016 typhoid capsular polysaccharide vaccine Adrian Hunter DO Work Phone: [facility] 10-26-2011 tetanus toxoid, redu garcia diphtheria toxoid, and acellular pertussis vaccine, adsorbed Adrian Hunter DO Work Phone: [facility] 07-28-2004 diphtheria, tetanus toxoids and acellular pertussis vaccine, unspecified formulation Adrian [facility] DO Work Phone: [facility] 07-28-2004 measles, mumps and r ubella virus vaccine Adrian Hunter DO Work Phone: [facility] 07-28-2004 poliovirus vaccine, inactivated Adrian Hunter DO Work Phone: [facility] 12-20-2000 pneumococcal conjuga te vaccine, 7 valent Adrian Hunter DO Work Phone: [facility] 07-12-2000 diphtheria, tetanus toxoids and acellular pertussis vaccine, unspecified formulation Adrian Hunter DO Work Phone: [facility] 07-12-2000 haemophilus influenz ae type b vaccine, PRP-OMP conjugate Adrian Hunter DO Work Phone: [facility] 07-12-2000 measles, mumps and r ubella virus vaccine Adrian Hunter DO Work Phone: [facility] 07-12-2000 pneumococcal conjuga te vaccine, 7 valent Adrian Hunter DO Work Phone: [facility] 07-12-2000 varicella virus vaccine Core y Hunter DO Work Phone: [facility] 02-16-2000 hepatitis B vaccine, pediatric or pediatric/adolescent dosage Adrian Hunter DO Work Phone: [facility] 02-16-2000 pneumococcal conjuga te vaccine, 7 valent Adrian Hunter DO Work Phone: [facility] 02-16-2000 poliovirus vaccine, inactivated Adrian Hunter DO Work Phone: [facility] 1999 diphtheria, tetanus toxoids and acellular pertussis vaccine, unspecified formulation Adrian Hunter DO Work Phone: [facility] 1999 haemophilus influenz ae type b vaccine, PRP-OMP conjugate Adrian Hunter DO Work Phone: [facility] 1999 diphtheria, tetanus toxoids and acellular pertussis vaccine, unspecified formulation Adrian Hunetr DO Work Phone: [facility] 1999 haemophilus influenz ae type b vaccine, PRP-OMP conjugate Adrian Hunter DO Work Phone: [facility] 1999 hepatitis B vaccine, pediatric or pediatric/adolescent dosage Adrian Hunter DO Work Phone: [facility] 1999 poliovirus vaccine, inactivated Adrian Hunter DO Work Phone: [facility] 1999 diphtheria, tetanus toxoids and acellular pertussis vaccine, unspecified formulation Adrian Hunter DO Work Phone: [facility] 1999 haemophilus influenz ae type b vaccine, PRP-OMP conjugate Adrian Hunter DO Work Phone: [facility] 1999 hepatitis B vaccine, pediatric or pediatric/adolescent dosage Adrian Hunter DO Work Phone: [facility] 1999 poliovirus vaccine, inactivated Adrian Hunter DO Work Phone: [facility] Payers Date Payer Category Payer Medicaid [id number] 2021 Unknown [id number] 2021 Unknown [id number] 1999 Unknown [id number] 2.16.8 [id number] 1999 Unknown [id number] 2.16.8 [id number] 1999 Unknown [id number] 2.16.8 40.1.559983.3.579.2.727 1999 Unknown [id number] 2.16.8 [id number] 1999 Unknown [id number] 2.16.8 40.1.106438.3.579.2.727 1999 Unknown [id number] 2.16.84 0.1.882226.3.579.2.1259 1999 Unknown [id number] 2.16.84 0.1.937264.3.579.2.1259 1999 Unknown [id number] 2.16.84 0.1.932239.3.579.2.1259 1999 Unknown [id number] 2.16.84 0.1.394914.3.579.2.1259 1999 Unknown [id number] 2.16.840 .1.153540.3.579.2.1259 1999 Unknown [id number] 2.16.840 .1.437794.3.579.2.1259 1999 Unknown [id number] 2.16.840 .[id number] Social History Date Type Detail Facility Tobacco smoking status [facility] Start: 10-11-2022 End: 03-10-2023 Sex Assigned At Female [facility] Start: 10-14-2022 Tobacco smoking status VAIS Never smoked tobacco [facility] Start: 10-14-2022 Tobacco use and exposure Smokeless tobacco non-user [facility] Start: 04-10-2023 Alcohol intake Current drinker of alcohol (finding) [facility] Start: 10-11-2022 End: 04-10-2023 Alcohol intake [...] Not at all [facility] (I/We) worried mary er (my/our) food would run out before [...] 01/06/23HCV Antibody RFX to Quant PCR 01/06/23 [facility] Evaluation + Plan note Note Date & Type Note Facility Evaluation + Plan note No data available for this section [facility] Hospital Discharge instructions Note Date & Type Note Facility Hospital Discharge instructions No data available for this section [facility] Progress note Note Date & Type Note Facility Progress note No data available for this section [facility] Summary Purpose Family History No Family History Records Found Advance Directives No Advanced Directives Records FoundNo Advanced Directives Records Found Additional Source Comments Patient Care team informatio n (unrecognized section and content) Workers Compensation Defense Attorney Relationship Specialty Start Date End Date Rosita Casas MD [address] [place] [address] PCP - Medical [facility] 08/11/22 Rosita aCsas MD [address] [place] [address] PCP - General Family Medicine 10/07/22 Parul Henderson PA [address] [place] [address] Physician Animal Control Officer Family Medicine 10/07/22 INFORMATION SOURCE (unrecogn ized section and content) DATE CREATED AUTHOR 05/19/2023 [facility] DATE CREATED AUTHOR AUTHOR'S ORGANIZ ATION 06/21/2023 [facility] EPIC FOR RECORDS PERTAINING TO [...] BE BASED ON THE PRIMARY CLINICAL RECORDS. [facility]. provides no warranty or guarantee of the accuracy or completeness of information in this document.
== END 2023-07-04 13:55 | disposition home or self-care (01) ==
LOC: NOMS 13:55
PROVIDERS: Visit Provider Obstetrics & Gynecology
DX: O26.849 Uterine size-date discrepancy, unspecified trimester (principal); Z3A.34 34 weeks gestation of pregnancy
CPT/HCPCS: 76816

== ENCOUNTER 2023-07-20 19:35 | Outpatient (REF) | payer OTHER, MEDICAID, SELFPAY ==
--- OUTSIDE RECORDS SUMMARY | 2023-07-20 19:42 | XMS_ITS | CCD ---
Author Organization [facility] Care Team Providers Care Surgical Asst Name Role Phone Rosita Casas Primary Care Physician Rosita Casas MD Unavailable [phone] Rosita Casas MD Primary Care Provider Parul Cordova Unavailable Adrian GUSMAN Admitting Unavailable Adrian GUSMAN Attending Unavailable iGulia Oneil Admitting Unavailable Giulia Oneil Attending Unavailable Becki ROBISON Attending Unavailable Rosita Casas Admitting Unavailable Rosita Casas Attending Unavailable Rosita Casas Referring Unavailable Ronald Cisneros Attending Unavailable EDE, HAVEN Attending Unavailable ROSITA CASAS Attending Unavailable HUNTER, ADRIAN Attending Unavailable HAVEN MERA Attending Unavailable HUNTER, ADRIAN Attending Unavailable HUNTER, ADRIAN Attending Unavailable HUNTER, ADRIAN Attending Unavailable HAVEN MERA Attending Unavailable Medications Current Medications Medication Drug [...] Qn (Bld) 0.00 International_Unit/mL Invalid Interpretation Code [facility] Comment on above: Performed By: #### 1 [id number], [id number], [id number], [id number] #### [facility] [address] [place] [address] 9[address] M. tuberculosis stim IFN-g by CD4+ CD8+ T-cells corrected for background Qn (Bld) 0.01 International_Unit/mL Invalid Interpretation Code [facility] Comment on above: Performed By: #### 1 [id number], [id number], [id number], [id number] #### [facility] [address] [place] [address] M. tuberculosis stim IFN-g by CD4+ T-cells corrected for background Qn (Bld) 0.01 International_Unit/mL Invalid Interpretation Code [facility] Comment on above: Performed By: #### 1 [id number], [id number], [id number], [id number] #### [facility] [address] [place] [address] 9[address] M. tuberculosis stim IFN-g Ql (Bld) [Interp] Negative Invalid Interpretation Code Negative [facility] Comment on above: Result Comment: No [...] interferon gamma. Chemiluminescence immunoassay methodology Performed at: [facility] [address] [place] [address] [id number] PhD Nathaniel Boone Performed By: #### 1 [id number], [id number], [id number], [id number] #### [facility] [address] [place] [address] Mitogen stimulated gamma interferon corrected for background Qn (Bld) >10.00 Invalid Interpretation Code [facility] Comment on above: Performed By: #### 1 [id number], [id number], [id number], [id number] #### [facility] [address] [place] [address] Service comment (Unsp spec) [Interp] Comment Invalid Interpretation Code [facility] Comment on above: Result Comment: Jaime [...] for the test. Performed By: #### 1 4390971, [id number], [id number], 2366973 #### [facility] [address] [place] [address] 9[address] Hep Bs Abon 05-03-2023 HBV surface Ab Ql (S) Non-Reactive Invalid Interpretation Code [facility] Comment on above: Result Comment: Non Reactive: Inconsistent with immunity, less than 10 mIU/mL Reactive: Consistent with immunity, greater than 9.9 mIU/mL Performed at: [address] [id number] PhD Nathaniel Boone Performed By: #### 1 3089083, [id number], [id number], 8607733 #### [facility] [address] [place] [address]771 Measles/Mumps/Rubella Immuni tyon 05-03-2023 MeV IgG IA Qn (S) 117.0 A unit/mL Invalid Interpretation Code Immune >16.4 [facility] Comment on above: Result Comment: Nega tive <13.5 Equivocal 13.5 - 16.4 Positive >16.4 Presence of antibodies to Rubeola is presumptive evidence of immunity except when acute infection is suspected. Performed By: #### 1 [id number], [id number], [id number], 3284082 #### [facility] [address] [place] [address] MuV IgG IA Qn (S) 31.7 A unit/mL Invalid Interpretation Code Immune >10.9 [facility] Comment on above: Result Comment: Nega tive <9.0 Equivocal 9.0 - 10.9 Positive >10.9 A positive result generally indicates past exposure to Mumps virus or previous vaccination. Performed at: [address] [id number] PhD Nathaniel Boone Performed By: #### 1 5980541, [id number], [id number], 0809472 #### [facility] [address] [place], [place] [id number] Rubella virus IgG Qn (S) 2.07 [IU]/mL Invalid Interpretation Code Immune >0.99 [facility] Comment on above: Result Comment: Non- immune <0.90 Equivocal 0.90 - 0.99 Immune >0.99 Performed By: #### 1 9177244, [id number], 897872875, 8053422 #### [facility] [address] [place] [address] 48460 Varic IgGon 05-03-2023 VZV IgG IA Qn (S) 180 Invalid Interpretation Code Immune >165 [facility] Comment on above: Result Comment: Nega tive <135 Equivocal 135 - 165 Positive >165 A positive result generally indicates exposure to the pathogen or administration of specific immunoglobulins, but it is not indication of active infection or stage of disease. Performed at: [address] [id number] PhD Nathaniel Boone Performed By: #### 1 0157875, [id number], [id number], 7623690 #### [facility] [address] [place] [address]019 ALL CBC WITH AUTO DIFFon BASOPHILS ABSOLUTE AUTO 0.0 [facility] Basophils/100 WBC (Bld) 0.3 % 0.2 - 2.0 % [facility] Eosinophils/100 WBC (Bld) 0.9 % 0.9 - 7.0 % [facility] Erythrocyte distribution width (RBC) [Ratio] 12.3 % 11.0 - 15.0 % [facility] Hematocrit (Bld) [Volume fraction] 35.3 % Low 36.0 - 48.0 % [facility] Hemoglobin (Bld) [Mass/Vol] 11.7 g/dL Low 12.0 - 16.0 g/dL [facility] IMMATURE GRANULOCYTES ABS AUTO 0.18 High [facility] Immature granulocytes/100 WBC (Bld) 1.8 % High 0.0 - 0.5 % [facility] Interpretation and review of laboratory results Abnormal [facility] LYMPHOCYTES ABSOLUTE AUTO 1.4 [facility] Lymphocytes/100 WBC (Bld) 14.1 % Low 20.5 - 60.0 % [facility] MCH (RBC) [Entitic mass] 31.7 pg 26.7 - 34.0 pg [facility] MCHC (RBC) [Mass/Vol] 33.1 g/dL 29.9 - 35.2 g/dL [facility] MCV (RBC) [Entitic vol] 95.7 fL 81.0 - 99.0 fL [facility] MONOCYTES ABSOLUTE AUTO 0.4 [facility] Monocytes/100 WBC (Bld) 4.0 % 1.7 - 12.0 % [facility] NEUTROPHILS ABSOLUTE AUTO 8.1 High [facility] Neutrophils/100 WBC (Bld) 78.9 % High 43.0 - 75.0 % [facility] Platelet mean volume (Bld) [Entitic vol] 9.4 fL Low 9.5 - 13.5 fL [facility] EO # 0.1 [facility] PLT 255 [facility] RBC 3.69 Low [facility] WBC 10.2 [facility] .Interpretation:on 3 HCV Ab IA Ql Comment Invalid Interpretation Code [facility] Comment on above: Result Comment: Not infected with HCV unless early or acute infection is suspected (which may be delayed in an immunocompromised individual), or other evidence exists to indicate HCV infection. Performed at: [address] [id number] PhD Nathaniel Boone Performed By: #### 1 [id number], [id number], [id number], 2738032 #### [facility] [address] [place] [address] 83440 C Urineon 01-08-2023 Bacteria identified Cx Nom [...] Locations R1: This test was performed at: [facility], [address] [place] [address], [address]- , , Normal [facility] Comment on above: Performed By: #### 1 [id number], [id number], [id number], [id number] #### [facility] [address] [place] [address] 98190 HCV Antibody RFX to Quant PC Isreal 01-08-2023 HCV IgG IA Ql Non-Reactive Invalid Interpretation Code Non Reactive [facility] Comment on above: Result Comment: [facility] [id number] PhD Nathaniel Boone Performed By: #### 1 8231048, [id number], 520456496, 3050309 #### [facility] [address] [place] [address] 10114 HIV Screen 4th Generation wR fxon 01-08-2023 HIV 1+2 Ab+HIV1 p24 Ag IA Ql Non-Reactive Invalid Interpretation Code Non Reactive [facility] Comment on above: Result Comment: HIV Negative HIV-1/HIV-2 antibodies and HIV-1 p24 antigen were NOT detected. There is no laboratory evidence of HIV infection. Performed at: [facility] [id number] PhD Nathaniel Boone Performed By: #### 2 174973, 2876175, [id number], 90817270, 234996206, 2603479, 601617463, [id number], 320847186 #### [facility] [address] [place] [address] Hep Bs Agon 01-08-2023 HBV surface Ag IA Ql Negative Invalid Interpretation Code Negative [facility] Comment on above: Result Comment: Perf ormed at: [address] [id number] PhD aNthaniel Boone Performed By: #### 1 0486531, [id number], 628982745, [id number] #### [facility] [address] [place] [address] 85050 RPR with Conf Rfxon 01-09-20 23 Reagin Ab RPR Ql (S) Non-Reactive Invalid Interpretation Code Non Reactive [facility] Comment on above: Result Comment: Perf ormed at: [address] [id number] [id number] PhD Nathaniel Boone Performed By: #### 2 311249, 3300045, 3836581109, 84669714, 731752991, 9803535, 486876406, 7617886251, 084964634 #### [facility] [address] [place] [address] 00463 Rubella IgGon 01-08-2023 Rubella virus IgG Qn (S) 3.20 [IU]/mL Invalid Interpretation Code Immune >0.99 [facility] Comment on above: Result Comment: Non- immune <0.90 Equivocal 0.90 - 0.99 Immune >0.99 Performed at: [address] [id number] PhD Nathaniel Boone Performed By: #### 1 2655267, [id number], 269567763, 9640152 #### [facility] [address] [place] [address] 31003 ABO/Rhon 01-06-2023 ABO/Rh Positive Invalid Interpretation Code [facility] Comment on above: Performed By: #### 1 7367887, [id number], 252596554, 8733452 #### [facility] [address] [place] [address] ABO/Rh History Checkon 01-06 ABO/Rh History Check Verified Hx Blood Type Normal [facility] Comment on above: Performed By: #### 1 8595267, [id number], 014338337, 8492712 #### [facility] [address] [place] [address] ABSCon 01-06-2023 ABSC Gel Interp Negative Normal [facility] Comment on above: Performed By: #### 1 5775432, [id number], 380046097, 8882405 #### [facility] [address] [place] [address] BLOOD BANKOrdered By: Hollie Zavala on 01-06-2023 ABO/Rh Interp Positive Invalid Interpretation Code [facility] BB Subsection ABSC Gel Interp Negative (01/06/23 3:05 PM) Normal [facility] BB Subsection CBC w/Indiceson 01-06-2023 Erythrocyte distribution width (RBC) [Ratio] 12.8 % Normal 10.9-14.2 [facility] Comment on above: Performed By: #### 2 224585, 2920492, [id number], 41454085, 123114972, 9048960, 553327571, 9336630497, 629322934 #### [facility] [address] [place] [address] Hematocrit (Bld) [Volume fraction] 40.8 % Normal 34.0-46.0 [facility] Comment on above: Performed By: #### 2 899364, 0027806, 3612484660, 17597700, 153533474, 1961936, 327573124, 2315843323, 612763331 #### [facility] [address] [place] [address] Hemoglobin (Bld) [Mass/Vol] 13.8 g/dL Normal 12.0-16.0 [facility] Comment on above: Performed By: #### 2 813329, 9382701, 3609142257, 69029173, 470783467, 7451447, 472139118, 4565211624, 341427793 #### [facility] [address] [place] [address] MCH (RBC) [Entitic mass] 31.6 pg Normal 27.0-34.0 [facility] Comment on above: Performed By: #### 2 807976, 5111211, 3222931868, 82224530, 875690684, 6658029, 979519954, 7365222135, 186846388 #### [facility] [address] [place] [address] MCHC (RBC) [Mass/Vol] 33.7 g/dL Normal 31.4-36.0 [facility] Comment on above: Performed By: #### 2 933227, 8447820, 0240358816, 91313722, 819235486, 0450460, 006565996, 7722928541, 694774400 #### [facility] [address] [place] [address] MCV (RBC) [Entitic vol] 93.7 fL Normal 80.0-100.0 [facility] Comment on above: Performed By: #### 2 419653, 6073315, 6644838189, 18808342, 111809245, 2352642, 616239905, 2578896393, 303088469 #### [facility] [address] [place] [address] Platelet mean volume (Bld) [Entitic vol] 8.1 fL Normal 6.4-10.8 [facility] Comment on above: Performed By: #### 2 034449, 6593018, 9956927425, 12983651, 529610088, 9962420, 579675393, 8039572668, 236874955 #### [facility] [address] [place] [address] Platelets (Bld) [#/Vol] 345.0 E9/L Normal 150.0-500.0 [facility] Comment on above: Performed By: #### 2 365178, 1629232, 2351489241, 51790701, 947228195, 7624748, 527091718, 2935352215, 049338144 #### [facility] [address] [place] [address] RBC (Bld) [#/Vol] 4.4 E12/L Normal 4.3-5.9 [facility] Comment on above: Performed By: #### 2 194709, 1706998, 9714818264, 39495056, 388182764, 7971778, 198323708, 3793373548, 645581655 #### [facility] [address] [place] [address] WBC corrected for nucl RBC Auto (Bld) [#/Vol] 9.8 E9/L Normal 4.0-11.0 [facility] Comment on above: Performed By: #### 2 067295, 6649817, 5336903438, 30613326, 622532335, 0280604, 945252842, 5600057776, 317830715 #### [facility] [address] [place] [address] CHEMISTRYOrdered By: Maryann Brooke on 01-06-2023 HbA1c (Bld) [Mass fraction] 5.0 % Normal <=5.9% [facility] ChemAutoSS CHEMISTRYOrdered By: SYSTEM SYSTEM on 01-06-2023 TSH Qn 1.74 m[IU]/L Normal 0.34 - 5.60 mcIU/mL [facility] Remisol Consent for Treatmenton 12-12 Consent for Treatment [id number] .00TIFF Normal [facility] HEMATOLOGYOrdered By: Hollie Zavala on 01-06-2023 [...] Normal 4.0 - 11.0 E9/L [facility] HemeAutoSS [id number] 01-06-2023 HbA1c (Bld) [Mass fraction] 5.0 % Normal <=5.9 [facility] Comment on above: Performed By: #### 2 981147, 6439905, 7667522228, 82612524, 143472416, 7402726, 079104528, 3776884804, 042841258 #### [facility] [address] [place] [address] Physician Orderon 01-06-2023 Physician Order [id number]#1 .00TIFF Normal [facility] TSHon 01-06-2023 TSH Qn 1.74 m[IU]/L Normal 0.34-5.60 [facility] Comment on above: Performed By: #### 2 584509, 0335457, 7203550849, 39250166, 796873445, 3698798, 703030833, 5300226660, 468762524 #### [facility] [address] [place] [address] US Thyroidon 10-21-2022 US Thyroid Exam Date/Time: [...] MD Transcribed by: JAG Technologist: THALIA Ulloa [facility] Consent for Treatmenton 10-11 Consent for Treatment [id number] .00CD:127 Normal [facility] Physician Orderon 10-17-2022 Physician Order [id number]#1 .00CD:127 Normal [facility] PAP [id number] 08-12-2022 Cytology report Cyto stain Doc (Cvx/Vag) Note Invalid Interpretation Code [facility] Comment on above: Result Comment: TEST S RESULT FLAG UNITS REF RANGE LAB Clinician Provided Cytology Information Source.............Cervix No. of containers..01 ThinPrep Vial DIAGNOSIS: 01 NEGATIVE FOR INTRAEPITHELIAL LESION OR MALIGNANCY. PREDOMINANCE OF COCCOBACILLI CONSISTENT WITH SHIFT IN VAGINAL KELLY IS PRESENT. THIS SPECIMEN WAS RESCREENED PART OF [employer] PROGRAM. Specimen adequacy: 01 Satisfactory for evaluation. Endocervical and/or squamous metaplastic cells (endocervical component) are present. Performed by: Kurtis Freedman, Ward Helper ([facility]) QC reviewed by: Kurtis Eugene, Ward Helper ([facility]) . 01 Note: Note 01 The [...] High,A-Abnormal,AA-Critical Abnormal Performed at: 01 WB [facility] [address] [id number] Maryellen Knox MD, Performed at: [facility] [place] [address] [place], [place] [id number] MD Lisette Bojorquez Performed By: #### 1 0238435, [id number], 572098436, 5095183 #### [facility] [address] [place] [address] PAP [id number] 08-03-2022 Collection Technique BRUSH-SPATULA Normal [facility] Comment on above: Performed By: #### 1 0412727, [id number], 788481087, 1656170 #### [facility] [address] [place] [address] Gynecological Body Site CERVIX Normal [facility] Comment on above: Performed By: #### 1 1224332, [id number], 411188231, 5574050 #### [facility] [address] [place] [address] Physician Orderon 08-03-2022 Physician Order [id number] .00CD:127 Normal [facility] Encounters Encounter Date Encounter Type Care Provider Facility Start: 07-04-2023 End: 07-04-2023 ambulatory HAVEN MERA Not Available Start: 06-20-2023 End: 06-20-2023 ambulatory ADRIAN GUSMAN Not Available Start: 05-24-2023 End: 05-24-2023 ambulatory ADRIAN GUSMAN Not Available Start: 05-18-2023 ambulatory Ronald Forresti ty:[facility] Start: 05-09-2023 End: 05-09-2023 ambulatory HAVEN MERA Not Available Start: 05-02-2023 End: 05-03-2023 ambulatory Becki ROBISON Facility:[facility] Start: 04-27-2023 [facility] Result Encounter Adrian Hunter [...] 01-06-2023 End: 01-07-2023 ambulatory Adrian R HUNTER Facility:[facility] Start: 01-06-2023 End: 01-06-2023 Patient encounter procedure Adrian R HUNTER [facility] Start: 10-20-2022 End: 10-21-2022 ambulatory Rosita Casas Facility:[facility] Start: 10-20-2022 End: 10-20-2022 Patient encounter procedure Rosita Casas [facility] Start: 08-03-2022 End: 08-04-2022 ambulatory Giulia Oneil Facility:[facility] Procedures Date Procedure Procedure Detail Performing Clinician Start: 04-27-2023 ALL CBC WITH AUTO DIFF Adrian Hunter DO Work Phone: Plan of Treatment Date Care Activity Detail Author Start: 05-09-2023 End: 05-09-2023 Patient encounter procedure 05/09/2023 2:40 PM EST Routine [facility] [address] [facility] [place] [address] Haven Mera PA [address] [place] [address] [place] [address] [facility] Start: 11-11-2022 Influenza vaccination Influenza Vacc ine (#1) [facility] Immunizations Immunization Date Immunization Notes Care Provider [facility] 02-17-2017 hepatitis A vaccine, pediatric/adolescent dosage, 2 dose schedule Adrian Hunter DO Work Phone: [facility] 02-17-2017 meningococcal B vacc ine, recombinant, OMV, adjuvanted Adrian Hunter DO Work Phone: [facility] 11-11-2016 meningococcal B vacc ine, recombinant, OMV, adjuvanted Adrian Hunter DO Work Phone: [facility] 11-11-2016 meningococcal oligosaccharide (groups A, C, Y and W-135) diphtheria toxoid conjugate vaccine (MCV4O) Adrian [facility] DO Work Phone: [facility] 08-01-2016 hepatitis A vaccine, pediatric/adolescent dosage, 2 dose schedule Adrian Hunter DO Work Phone: [facility] 08-01-2016 typhoid capsular polysaccharide vaccine Adrian Hunter DO Work Phone: [facility] 10-26-2011 tetanus toxoid, redu garcia diphtheria toxoid, and acellular pertussis vaccine, adsorbed Adrian [facility] DO Work Phone: [facility] 07-28-2004 diphtheria, tetanus toxoids and acellular pertussis vaccine, unspecified formulation Adrian Hunter DO Work Phone: [facility] 07-28-2004 measles, mumps and r ubella virus vaccine Adrian Hunter DO Work Phone: [facility] 07-28-2004 poliovirus vaccine, inactivated Adrian Hunter DO Work Phone: [facility] 12-20-2000 pneumococcal conjuga te vaccine, 7 valent Adrian Hunter DO Work Phone: [facility] 07-12-2000 diphtheria, tetanus toxoids and acellular pertussis vaccine, unspecified formulation Adrian Hunter DO Work Phone: [facility] 07-12-2000 haemophilus influenz ae type b vaccine, PRP-OMP conjugate Adrian Hunter DO Work Phone: [facility] 07-12-2000 measles, mumps and r ubella virus vaccine Adrian Hunter DO Work Phone: [facility] 07-12-2000 pneumococcal conjuga te vaccine, 7 valent Adrian Hunter DO Work Phone: [facility] 07-12-2000 varicella virus vaccine Core y Hunter DO Work Phone: [facility] 02-16-2000 hepatitis B vaccine, pediatric or pediatric/adolescent dosage Adrian Hunter DO Work Phone: [facility] 02-16-2000 pneumococcal conjuga te vaccine, 7 valent Adrian Hunter DO Work Phone: [facility] 02-16-2000 poliovirus vaccine, inactivated Adrian Hunter DO Work Phone: [facility] 1999 diphtheria, tetanus toxoids and acellular pertussis vaccine, unspecified formulation Adrian Hunter DO Work Phone: [facility] 1999 haemophilus influenz ae type b vaccine, PRP-OMP conjugate Adrian Hunter DO Work Phone: [facility] 1999 diphtheria, tetanus toxoids and acellular pertussis vaccine, unspecified formulation Adrian Hunter DO Work Phone: [facility] 1999 haemophilus influenz ae type b vaccine, PRP-OMP conjugate Adrian Hunter DO Work Phone: [facility] 1999 hepatitis B vaccine, pediatric or pediatric/adolescent dosage Adrian Hunter DO Work Phone: [facility] 1999 poliovirus vaccine, inactivated Adrian Hunter DO Work Phone: [facility] 1999 diphtheria, tetanus toxoids and acellular pertussis vaccine, unspecified formulation Adrian Hunter DO Work Phone: [facility] 1999 haemophilus influenz ae type b vaccine, PRP-OMP conjugate Adrian Hunter DO Work Phone: [facility] 1999 hepatitis B vaccine, pediatric or pediatric/adolescent dosage Adrian Hunter DO Work Phone: [facility] 1999 poliovirus vaccine, inactivated Adrian Hunter DO Work Phone: [facility] Payers Date Payer Category Payer Medicaid [id number] 2021 Unknown [id number] 2021 Unknown [id number] 1999 Unknown [id number] 2.16.8 [id number] 1999 Unknown [id number] 2.16.8 40.1.490294.3.579.2.727 1999 Unknown [id number] 2.16.8 40.1.228240.3.579.2.727 1999 Unknown [id number] 2.16.8 40.1.234362.3.579.2.727 1999 Unknown [id number] 2.16.8 40.1.984787.3.579.2.727 1999 Unknown [id number] 2.16.84 0.1.171943.3.579.2.1259 1999 Unknown [id number] 2.16.84 0.1.156624.3.579.2.1259 1999 Unknown [id number] 2.16.84 0.1.832472.3.579.2.1259 1999 Unknown [id number] 2.16.84 0.1.143963.3.579.2.1259 1999 Unknown [id number] 2.16.84 0.1.431951.3.579.2.1259 1999 Unknown [id number] 2.16.840 .1.420868.3.579.2.1259 1999 Unknown [id number] 2.16.840 .1.357039.3.579.2.1259 1999 Unknown [id number] 2.16.840 .1.685374.3.579.2.1259 Social History Date Type Detail Facility Tobacco smoking status [facility] Start: 10-11-2022 End: 03-10-2023 Sex Assigned At Female [facility] Start: 10-14-2022 Tobacco smoking status [facility] Never smoked tobacco [facility] Start: 10-14-2022 [...] Not at all [facility] (I/We) worried wheching er (my/our) food would run out before (I/we) got money to buy more. Never true [facility] In the past 12 month s, has lack of transportation kept you from medical appointments or from getting medications? No [facility] Start: 08-03-2023 Alcohol Comment Caffeine intake: 1-2 cups per day pop [facility] Start: 11-22-2022 [facility] Start: 1999 Sex Assigned At Not on file [facility] Evaluation + Plan note 01-06-2023 Note Date & Type Note Facility 01-06-2023 Evaluation + Plan note Diagnostic Tests PendingUrine Culture 01/06/23HIV Screen 4th Generation wRfx 01/06/23Hepatitis B Surface Antigen 01/06/23RPR with Conf Rfx 01/06/23Rubella Antibody IgG 01/06/23HCV Antibody RFX to Quant PCR 01/06/23 [facility] Evaluation + Plan note Note Date & Type Note Facility Evaluation + Plan note No data available for this section [facility] Hospital Discharge instructions Note Date & Type Note Facility Hospital Discharge instructions No data available for this section [facility] Progress note Note Date & Type Note Facility Progress note No data available for this section [facility] Summary Purpose Family History No Family History Records Found Advance Directives No Advanced Directives Records FoundNo Advanced Directives Records Found Additional Source Comments Patient Care team informatio n (unrecognized section and content) Surgical Asst Relationship Specialty Start Date End Date Rosita Casas MD [address] [place] [address] PCP - Medical [place] [employer] 08/11/22 Rosita Casas MD [address] [place] [id number] PCP - General Family Medicine 10/07/22 Parul Henderson PA [address] [place] [address] Physician Temperature Regulator Family Medicine 10/07/22 INFORMATION SOURCE (unrecogn ized section and content) DATE CREATED AUTHOR 05/19/2023 [facility] [place] DATE CREATED AUTHOR 'S LIDIAIZ ATION 07/06/[address] [facility] EPIC FOR RECORDS PERTAINING TO PATIENTS [...] BE BASED ON THE PRIMARY CLINICAL RECORDS. [facility] [employer] [facility]. provides no warranty or guarantee of the accuracy or completeness of information in this document.
== END 2023-07-20 19:36 | disposition home or self-care (01) ==
LOC: LAB 19:35
PROVIDERS: Visit Provider Physician Assistant
DX: Z34.93 Encounter for supervision of normal pregnancy, unspecified, third trimester (principal)
CPT/HCPCS: 87081

== ENCOUNTER 2023-08-14 04:53 | Inpatient (IN) | payer MEDICAID, SELFPAY ==
[2023-08-14] VITALS (56 sets, daily range): BP systolic 75–183; BP diastolic 40–135; PULSE 68–141; TEMP 35.4–36.8
--- OUTSIDE RECORDS SUMMARY | 2023-08-14 04:56 | XMS_ITS | CCD ---
Author Organization [facility] Care Team Providers Care 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 Name Role Phone Rosita Casas Primary Care Physician Rosita Casas MD Unavailable [phone] Rosita Casas MD Primary Care Provider Parul Cordova Unavailable Adrian GUSMAN R Admitting Unavailable Adrian GUSMAN R Attending Unavailable Giulia Oneil Admitting Unavailable Thad, Giulia Don Attending Unavailable Becki ROBISON Attending Unavailable Rosita Casas Admitting Unavailable Rosita Casas Attending Unavailable Rosita Casas Referring Unavailable Ronald Cisneros Attending Unavailable EDE, HAVEN Attending Unavailable CASASROSITA WHITE Attending Unavailable HUNTER, ADRIAN Attending Unavailable EDE, HAVEN Attending Unavailable HUNTER, ADRIAN Attending Unavailable HUNTER, ADRIAN Attending Unavailable HUNTER, ADRIAN Attending Unavailable EDE, HAVEN Attending Unavailable EDE, HAVEN Attending Unavailable HUNTER, ADRIAN Attending Unavailable EDE, HAVEN Attending Unavailable HUNTER, ADRIAN Attending Unavailable Medications Current Medications Medication Drug [...] Qn (Bld) 0.00 International_Unit/mL Invalid Interpretation Code [facility] Comment on above: Performed By: #### 1 [id number], [id number], [id number], [id number] #### [facility] [address] [place] [address] M. tuberculosis stim IFN-g by CD4+ CD8+ T-cells corrected for background Qn (Bld) 0.01 International_Unit/mL Invalid Interpretation Code [facility] Comment on above: Performed By: #### 1 [id number], [id number], [id number], 5445939 #### [facility] [address] [place] [address] M. tuberculosis stim IFN-g by CD4+ T-cells corrected for background Qn (Bld) 0.01 International_Unit/mL Invalid Interpretation Code [facility] Comment on above: Performed By: #### 1 [id number], [id number], [id number], [id number] #### [facility] [address] [place] [address] M. tuberculosis stim IFN-g Ql (Bld) [Interp] Negative Invalid Interpretation Code Negative [facility] Comment on above: Result Comment: [...] interferon gamma. Chemiluminescence immunoassay methodology Performed at: [address] [id number] PhD Nathaniel Boone Performed By: #### 1 2387524, [id number], [id number], [id number] #### [facility] [address] [place] [address] Mitogen stimulated gamma interferon corrected for background Qn (Bld) >10.00 Invalid Interpretation Code [facility] Comment on above: Performed By: #### 1 7970930, [id number], [id number], [id number] #### [facility] [address] [place] [address] Service comment (Unsp spec) [Interp] Comment Invalid Interpretation Code [facility] Comment on above: Result Comment: [...] for the test. Performed By: #### 1 4626532, [id number], 715245657, [id number] #### [facility] [address] [place] [address] Hep Bs Abon 05-03-2023 HBV surface Ab Ql (S) Non-Reactive Invalid Interpretation Code [facility] Comment on above: Result Comment: Non Reactive: Inconsistent with immunity, less than 10 mIU/mL Reactive: Consistent with immunity, greater than 9.9 mIU/mL Performed at: [address] [id number] PhD Nathaniel Boone Performed By: #### 1 1830317, [id number], [id number], 0063426 #### [facility] [address] [place] [address] Measles/Mumps/Rubella Immuni tyon 05-03-2023 MeV IgG IA Qn (S) 117.0 A unit/mL Invalid Interpretation Code Immune >16.4 [facility] Comment on above: Result Comment: Nega tive <13.5 Equivocal 13.5 - 16.4 Positive >16.4 Presence of antibodies to Rubeola is presumptive evidence of immunity except when acute infection is suspected. Performed By: #### 1 6101932, [id number], [id number], 6772550 #### [facility] [address] 1215757 MuV IgG IA Qn (S) 31.7 A unit/mL Invalid Interpretation Code Immune >10.9 [facility] Comment on above: Result Comment: Nega tive <9.0 Equivocal 9.0 - 10.9 Positive >10.9 A positive result generally indicates past exposure to Mumps virus or previous vaccination. Performed at: [address] [id number] PhD Nathaniel Boone Performed By: #### 1 9665814, [id number], [id number], 5579086 #### [facility] [address] [place], [place] [address] Rubella virus IgG Qn (S) 2.07 [IU]/mL Invalid Interpretation Code Immune >0.99 [facility] Comment on above: Result Comment: Non- immune <0.90 Equivocal 0.90 - 0.99 Immune >0.99 Performed By: #### 1 0759254, [id number], 632056871, 4816109 #### [facility] [address] [place] [address] Varic IgGon 05-03-2023 VZV IgG IA Qn (S) 180 Invalid Interpretation Code Immune >165 [facility] Comment on above: Result Comment: Nega tive <135 Equivocal 135 - 165 Positive >165 A positive result generally indicates exposure to the pathogen or administration of specific immunoglobulins, but it is not indication of active infection or stage of disease. Performed at: [address] [id number] PhD Nathaniel Boone Performed By: #### 1 1726504, [id number], [id number], 4355424 #### [facility] [address] [place], [place] [address] ALL CBC WITH AUTO DIFFon BASOPHILS ABSOLUTE AUTO 0.0 [facility] Basophils/100 WBC (Bld) 0.3 % 0.2 - 2.0 % [facility] Eosinophils/100 WBC (Bld) 0.9 % 0.9 - 7.0 % [facility] Erythrocyte distribution width (RBC) [Ratio] 12.3 % 11.0 - 15.0 % [facility] Hematocrit (Bld) [Volume fraction] 35.3 % Low 36.0 - 48.0 % [facility] Hemoglobin (Bld) [Mass/Vol] 11.7 g/dL Low 12.0 - 16.0 g/dL [facility] IMMATURE GRANULOCYTES ABS AUTO 0.18 High [facility] Immature granulocytes/100 WBC (Bld) 1.8 % High 0.0 - 0.5 % [facility] Interpretation and review of laboratory results Abnormal [facility] LYMPHOCYTES ABSOLUTE AUTO 1.4 [facility] Lymphocytes/100 WBC (Bld) 14.1 % Low 20.5 - 60.0 % [facility] MCH (RBC) [Entitic mass] 31.7 pg 26.7 - 34.0 pg [facility] MCHC (RBC) [Mass/Vol] 33.1 g/dL 29.9 - 35.2 g/dL [facility] MCV (RBC) [Entitic vol] 95.7 fL 81.0 - 99.0 fL [facility] MONOCYTES ABSOLUTE AUTO 0.4 [facility] Monocytes/100 WBC (Bld) 4.0 % 1.7 - 12.0 % [facility] NEUTROPHILS ABSOLUTE AUTO 8.1 High [facility] Neutrophils/100 WBC (Bld) 78.9 % High 43.0 - 75.0 % [facility] Platelet mean volume (Bld) [Entitic vol] 9.4 fL Low 9.5 - 13.5 fL [facility] EO # 0.1 [facility] TB PLT 255 [facility] RBC 3.69 Low [facility] WBC 10.2 [facility] .Interpretation:on 3 HCV Ab IA Ql Comment Invalid Interpretation Code [facility] Comment on above: Result Comment: Not infected with HCV unless early or acute infection is suspected (which may be delayed in an immunocompromised individual), or other evidence exists to indicate HCV infection. Performed at: [address] [id number] PhD Nathaniel Boone Performed By: #### 1 6414827, [id number], 106968332, [id number] #### [facility] [address] [place] [address] C Urineon 01-08-2023 Bacteria identified Cx Nom [...] Locations R1: This test was performed at: [facility], [address] [place] [address], [address]- , , Normal [facility] Comment on above: Performed By: #### 1 1953463, [id number], [id number], 8803952 #### [facility] [address] [place] [address] HCV Antibody RFX to Quant PC Isreal 01-08-2023 HCV IgG IA Ql Non-Reactive Invalid Interpretation Code Non Reactive [facility] Comment on above: Result Comment: Perf ormed at: [facility] [address], [place] [id number] PhD Nathaniel Boone Performed By: #### 1 5585911, [id number], 667710729, 5420415 #### [facility] [address] [place] [address] HIV Screen 4th Generation wR fxon 01-08-2023 HIV 1+2 Ab+HIV1 p24 Ag IA Ql Non-Reactive Invalid Interpretation Code Non Reactive [facility] Comment on above: Result Comment: HIV Negative HIV-1/HIV-2 antibodies and HIV-1 p24 antigen were NOT detected. There is no laboratory evidence of HIV infection. Performed at: [address] [id number] PhD Nathaniel Boone Performed By: #### 2 687170, 0427509, [id number], 47505520, 044655398, 2459853, 874548106, [id number], 991513023 #### [facility] [address] [place] [address] Hep Bs Agon 01-08-2023 HBV surface Ag IA Ql Negative Invalid Interpretation Code Negative [facility] Comment on above: Result Comment: Perf ormed at: [address] [id number] PhD Nathaniel Boone Performed By: #### 1 2775394, [id number], 088854765, 3648070 #### [facility] [address] [place] [address] RPR with Conf Rfxon 01-09-20 Reagin Ab RPR Ql (S) Non-Reactive Invalid Interpretation Code Non Reactive [facility] Comment on above: Result Comment: Perf ormed at: [address] [id number] PhD Nathaniel Boone Performed By: #### 2 292595, 3819566, [id number], 72407005, 980943565, 1976511, 689300597, 5585724234, [id number] #### [facility] [address] [place] [address] Rubella IgGon 01-08-2023 Rubella virus IgG Qn (S) 3.20 [IU]/mL Invalid Interpretation Code Immune >0.99 [facility] Comment on above: Result Comment: Non- immune <0.90 Equivocal 0.90 - 0.99 Immune >0.99 Performed at: [address] [id number] PhD Nathaniel Boone Performed By: #### 1 4977318, [id number], 908017469, 5697280 #### [facility] [address] [place] [address] ABO/Rhon 01-06-2023 ABO/Rh Positive Invalid Interpretation Code [facility] Comment on above: Performed By: #### 1 7437347, [id number], 356844446, 1246987 #### [facility] [address] [place] [address] ABO/Rh History Checkon 01-06 ABO/Rh History Check Verified Hx Blood Type Normal [facility] Comment on above: Performed By: #### 1 3454074, [id number], 014609828, 1331549 #### [facility] [address] [place] [address] ABSCon 01-06-2023 ABSC Gel Interp Negative Normal [facility] Comment on above: Performed By: #### 1 1756195, 5597010541, 007855068, 1640235 #### [facility] [address] [place] [address] BLOOD BANKOrdered By: Hollie Zavala on 01-06-2023 ABO/Rh Interp Positive Invalid Interpretation Code [facility] BB Subsection ABSC Gel Interp Negative (01/06/23 3:05 PM) Normal [facility] BB Subsection CBC w/Indiceson 01-06-2023 Erythrocyte distribution width (RBC) [Ratio] 12.8 % Normal 10.9-14.2 [facility] Comment on above: Performed By: #### 2 482523, 7571888, 0506998425, 67391865, 493432425, 7620269, 313314539, 7315581210, 897149160 #### [facility] [address] [place] [address] Hematocrit (Bld) [Volume fraction] 40.8 % Normal 34.0-46.0 [facility] Comment on above: Performed By: #### 2 827741, 1435721, 9959128650, 40296347, 634616915, 6422469, 633712766, 1533515430, 689126230 #### [facility] [address] [place] [address] Hemoglobin (Bld) [Mass/Vol] 13.8 g/dL Normal 12.0-16.0 [facility] Comment on above: Performed By: #### 2 761940, 9565984, 0361984301, 72109223, 595467041, 0018184, 521679463, 8146990894, 405298051 #### [facility] [address] [place] [address] MCH (RBC) [Entitic mass] 31.6 pg Normal 27.0-34.0 [facility] Comment on above: Performed By: #### 2 997770, 2548974, 3547263236, 49368262, 341786763, 3414395, 020346149, 7365985446, 963099261 #### [facility] [address] [place] [address] MCHC (RBC) [Mass/Vol] 33.7 g/dL Normal 31.4-36.0 [facility] Comment on above: Performed By: #### 2 421391, 3594218, 2463194536, 08034891, 417825225, 3575501, 288294303, 8294235537, 998317007 #### [facility] [address] [place] [address] MCV (RBC) [Entitic vol] 93.7 fL Normal 80.0-100.0 [facility] Comment on above: Performed By: #### 2 383711, 7272624, 1350502806, 85571869, 273830319, 6924403, 708044538, 0124735051, 994762378 #### [facility] [address] [place] [address] Platelet mean volume (Bld) [Entitic vol] 8.1 fL Normal 6.4-10.8 [facility] Comment on above: Performed By: #### 2 216498, 4522697, 3156800125, 19684569, 064502889, 8120931, 737870806, 5237170785, 168429222 #### [facility] [address] [place] [address] Platelets (Bld) [#/Vol] 345.0 E9/L Normal 150.0-500.0 [facility] Comment on above: Performed By: #### 2 834363, 1659843, 4850836856, 52467943, 848354004, 2684404, 058751759, 4456151159, 573228982 #### [facility] [address] [place] [address] RBC (Bld) [#/Vol] 4.4 E12/L Normal 4.3-5.9 [facility] Comment on above: Performed By: #### 2 193875, 9933924, 0537213192, 13631744, 703667456, 4138346, 678651853, 9743595239, 946669383 #### [facility] [address] [place] [address] WBC corrected for nucl RBC Auto (Bld) [#/Vol] 9.8 E9/L Normal 4.0-11.0 [facility] Comment on above: Performed By: #### 2 959941, 2356653, 6739929957, 86394201, 574861739, 0740707, 953484226, 6820889683, 677168875 #### [facility] [address] [place] [address] CHEMISTRYOrdered By: Maryann Brooke on 01-06-2023 HbA1c (Bld) [Mass fraction] 5.0 % Normal <=5.9% [facility] CHEMISTRYOrdered By: SYSTEM SYSTEM on 01-06-2023 TSH Qn 1.74 m[IU]/L Normal 0.34 - 5.60 mcIU/mL [facility] Remisol Consent for Treatmenton 12-12 Consent for Treatment [id number] .00TIFF Normal [facility] HEMATOLOGYOrdered By: Hollie Zavala on [...] Normal 4.0 - 11.0 E9/L [facility] HemeAutoSS [id number] 01-06-2023 HbA1c (Bld) [Mass fraction] 5.0 % Normal <=5.9 [facility] Comment on above: Performed By: #### 2 584026, 8553864, 6385045512, 62156392, 824826196, 3558476, 233718774, 9110517292, 844940840 #### [facility] [address] [place] [address] Physician Orderon 01-06-2023 Physician Order [id number] .00TIFF Normal [facility] TSHon 01-06-2023 TSH Qn 1.74 m[IU]/L Normal 0.34-5.60 [facility] Comment on above: Performed By: #### 2 859412, 8000958, 4997379394, 86695638, 043240474, 8918292, 159402530, 8393785865, 910960276 #### [facility] [address] [place] [address] US Thyroidon 10-21-2022 US Thyroid Exam Date/Time: [...] Casas FINAL REPORT Dictated: 10/21/2022 2:23 pm Misael TUTTLE, Rios Don Signed (Electronic Signature): 10/21/2022 2:23 pm Signed by: Rios Douglas MD Transcribed by: JAG Technologist: THALIA Normal [facility] Consent for Treatmenton 10-11 Consent for Treatment [id number] .00CD:127 Normal [facility] Physician Orderon 10-17-2022 Physician Order [id number]#1 .00CD:127 Normal [facility] PAP [id number] 08-12-2022 Cytology report Cyto stain Doc (Cvx/Vag) Note Invalid Interpretation Code [facility] Comment on above: Result Comment: TEST S RESULT FLAG UNITS REF RANGE LAB Clinician Provided Cytology Information Source.............Cervix No. of containers..01 ThinPrep Vial DIAGNOSIS: 01 NEGATIVE FOR INTRAEPITHELIAL LESION OR MALIGNANCY. PREDOMINANCE OF COCCOBACILLI CONSISTENT WITH SHIFT IN VAGINAL KELLY IS PRESENT. THIS SPECIMEN WAS RESCREENED PART OF OUR ENROUTE CONTROLLER PROGRAM. Specimen adequacy: 01 Satisfactory for evaluation. Endocervical and/or squamous metaplastic cells (endocervical component) are present. Performed by: Kurtis Freedman, Sat Math Tutor (ASC) QC reviewed by: Kurtis Eugene Sat Math Tutor (ASCP) . 01 Note: Note 01 The [...] Low,>-Panic High,A-Abnormal,AA-Critical Abnormal Performed at: [address] [address] Maryellen Knox MD, Performed at: [facility] [address] [id number] MD Lisette Bojorquez Performed By: #### 1 8917730, 5010135119, 337694934, 5693935 #### [facility] [address] 1215757 PAP [id number] 08-03-2022 Collection Technique BRUSH-SPATULA Normal F [facility] Comment on above: Performed By: #### 1 7240942, [id number], 092643176, 8251344 #### [facility] [address] [place] [address] Gynecological Body Site CERVIX Normal [facility] Comment on above: Performed By: #### 1 0942724, [id number], 235858007, 8949668 #### [facility] [address] 1215[address] Physician Orderon 08-03-2022 Physician Order [id number] .00CD:127 Normal [facility] Encounters Encounter Date Encounter Type Care Provider Facility Start: 08-09-2023 End: 08-09-2023 ambulatory ADRIAN GUSMAN Not Available Start: 08-02-2023 End: 08-02-2023 ambulatory HAVEN MERA Not Available Start: 07-27-2023 End: 07-27-2023 ambulatory ADRIAN HUNTER Not Available Start: 07-20-2023 End: 07-20-2023 ambulatory HAVEN EDE Not Available Start: 07-04-2023 End: 07-04-2023 ambulatory HAVEN EDE Not Available Start: 06-20-2023 End: 06-20-2023 ambulatory ADRIAN HUNTER Not Available Start: 05-24-2023 End: 05-24-2023 ambulatory ADRIAN HUNTER Not Available Start: 05-18-2023 ambulatory Ronald Don Jatinmelissa Facili ty:[facility] Start: 05-09-2023 End: 05-09-2023 ambulatory HAVEN MERA Not Available Start: 05-02-2023 End: 05-03-2023 ambulatory Becki ROBISON Facility:[facility] Start: 04-27-2023 [facility] Result Encounter Adrian Hunter DO Work Phone: [facility] Unsolicited Start: 04-27-2023 [facility] Result Encounter Adrian Hunter DO Work Phone: [facility] Unsolicited Start: 04-10-2023 End: 04-10-2023 ambulatory ADRIAN HUNTER Not Available Start: 03-10-2023 End: 03-10-2023 ambulatory ROSITA CASAS Not Available Start: 03-09-2023 End: 03-09-2023 ambulatory HAVEN EDE Not Available Start: 02-06-2023 End: 02-06-2023 ambulatory ADRIAN HUNTER Not Available Start: 01-06-2023 End: 01-07-2023 ambulatory Adrian R HUNTER Facility:[facility] Start: 01-06-2023 End: 01-06-2023 Patient encounter procedure Adrian R HUNTER [facility] Start: 10-20-2022 End: 10-21-2022 ambulatory Rosita Casas Facility:[facility] Start: 10-20-2022 End: 10-20-2022 Patient encounter procedure Rosita Casas [facility] Start: 08-03-2022 End: 08-04-2022 ambulatory Giulia Oneil Facility:[facility] Procedures Date Procedure Procedure Detail Performing Clinician Start: 04-27-2023 ALL CBC WITH AUTO DIFF Adrian Hunter DO Work Phone: Plan of Treatment Date Care Activity Detail Author Start: 05-09-2023 End: 05-09-2023 Patient encounter procedure 05/09/2023 2:40 PM EST Routine [facility] [address] [place] [address] Haven Mera PA [address] [place] [address] [facility] Start: 11-11-2022 Influenza vaccination Influenza Vacc ine (#1) [facility] Immunizations Immunization Date Immunization Notes Care Provider [facility] 02-17-2017 hepatitis A vaccine, pediatric/adolescent dosage, 2 dose schedule Adrian Hunter DO Work Phone: [facility] 02-17-2017 meningococcal B vacc ine, recombinant, OMV, adjuvanted Adrian Hunter DO Work Phone: [facility] 11-11-2016 meningococcal B vacc ine, recombinant, OMV, adjuvanted Adrian Hunter DO Work Phone: [facility] 11-11-2016 meningococcal oligosaccharide (groups A, C, Y and W-135) diphtheria toxoid conjugate vaccine (MCV4O) Adrian Hunter DO Work Phone: [facility] 08-01-2016 hepatitis A vaccine, pediatric/adolescent dosage, 2 dose schedule Adrian Hunter DO Work Phone: [facility] 08-01-2016 typhoid capsular polysaccharide vaccine Adrian Hunter DO Work Phone: [facility] 10-26-2011 tetanus toxoid, redu garcia diphtheria toxoid, and acellular pertussis vaccine, adsorbed Adrian Hunter DO Work Phone: [facility] 07-28-2004 diphtheria, tetanus toxoids and acellular pertussis vaccine, unspecified formulation Adrian Hunter DO Work Phone: [facility] 07-28-2004 measles, mumps and r ubella virus vaccine Adrian Hunter DO Work Phone: [facility] 07-28-2004 poliovirus vaccine, inactivated Adrian Hunter DO Work Phone: [facility] 12-20-2000 pneumococcal conjuga te vaccine, 7 valent Adrian Hunter DO Work Phone: [facility] 07-12-2000 diphtheria, tetanus toxoids and acellular pertussis vaccine, unspecified formulation Adrian Hunter DO Work Phone: [facility] 07-12-2000 haemophilus influenz ae type b vaccine, PRP-OMP conjugate Adrian Hunter DO Work Phone: [facility] 07-12-2000 measles, mumps and r ubella virus vaccine Adrian Hunter DO Work Phone: [facility] 07-12-2000 pneumococcal conjuga te vaccine, 7 valent Adrian Hunter DO Work Phone: [facility] 07-12-2000 varicella virus vaccine Core y Hunter DO Work Phone: [facility] 02-16-2000 hepatitis B vaccine, pediatric or pediatric/adolescent dosage Adrian Hunter DO Work Phone: [facility] 02-16-2000 pneumococcal conjuga te vaccine, 7 valent Adrian Hunter DO Work Phone: [facility] 02-16-2000 poliovirus vaccine, inactivated Adrian Hunter DO Work Phone: [facility] 1999 diphtheria, tetanus toxoids and acellular pertussis vaccine, unspecified formulation Adrian Hunter DO Work Phone: [facility] 1999 haemophilus influenz ae type b vaccine, PRP-OMP conjugate Adrian Hunter DO Work Phone: [facility] 1999 diphtheria, tetanus toxoids and acellular pertussis vaccine, unspecified formulation Adrian Hunter DO Work Phone: [facility] 1999 haemophilus influenz ae type b vaccine, PRP-OMP conjugate Adrian Hunter DO Work Phone: [facility] 1999 hepatitis B vaccine, pediatric or pediatric/adolescent dosage Adrian Hunter DO Work Phone: [facility] 1999 poliovirus vaccine, inactivated Adrian Hunter DO Work Phone: [facility] 1999 diphtheria, tetanus toxoids and acellular pertussis vaccine, unspecified formulation Adrian Hunter DO Work Phone: [facility] 1999 haemophilus influenz ae type b vaccine, PRP-OMP conjugate Adrian Hunter DO Work Phone: [facility] 1999 hepatitis B vaccine, pediatric or pediatric/adolescent dosage Adrian Hunter DO Work Phone: [facility] 1999 poliovirus vaccine, inactivated Adrian Hunter DO Work Phone: [facility] Payers Date Payer Category Payer Medicaid [id number] 2021 Unknown [id number] 2021 Unknown [id number] 1999 Unknown [id number] 2.16.8 40.1.418545.3.579.2.727 1999 Unknown [id number] 2.16.8 40.1.300844.3.579.2.727 1999 Unknown [id number] 2.16.8 40.1.547676.3.579.2.727 1999 Unknown [id number] 2.16.8 40.1.114222.3.579.2.727 1999 Unknown [id number] 2.16.8 40.1.466350.3.579.2.727 1999 Unknown [id number] 2.16.84 0.1.810768.3.579.2.1259 1999 Unknown [id number] 2.16.84 0.1.425521.3.579.2.9 1999 Unknown [id number] 2.16.84 0.1.949554.3.579.2.9 1999 Unknown [id number] 2.16.84 0.1.361264.3.579.2.9 1999 Unknown [id number] 2.16.84 0.1.677315.3.579.2.9 1999 Unknown [id number] 2.16.84 0.1.263228.3.579.2.9 1999 Unknown [id number] 2.16.84 0.1.431219.3.579.2.9 1999 Unknown [id number] 2.16.84 0.1.662753.3.579.2.9 1999 Unknown [id number] 2.16.84 0.1.601643.3.579.2.9 1999 Unknown [id number] 2.16.840 .1.563183.3.579.2.9 1999 Unknown [id number] 2.16.840 .1.926896.3.579.2.9 1999 Unknown [id number] 2.16.840 .1.997780.3.579.2.1259 Social History Date Type Detail Facility Tobacco smoking status [facility] Start: 10-11-2022 End: 03-10-2023 Sex Assigned At Female [facility] Start: 10-14-2022 Tobacco smoking status TNIS Never smoked tobacco [facility] Start: 10-14-2022 [...] 1999 Sex Assigned At Not on file [facility] Healthcare Evaluation + Plan note 01-06-2023 Note Date & Type Note Facility 01-06-2023 Evaluation + Plan note Diagnostic Tests PendingUrine Culture 01/06/23HIV Screen 4th Generation wRfx 01/06/23Hepatitis B Surface Antigen 01/06/23RPR with Conf Rfx 01/06/23Rubella Antibody IgG 01/06/23HCV Antibody RFX to Quant PCR 01/06/23 [facility] Evaluation + Plan note Note Date & Type Note Facility Evaluation + Plan note No data available for this section [facility] Discharge instructions Note Date & Type Note Facility Hospital Discharge instructions No data available for this section [facility] Progress note Note Date & Type Note Facility Progress note No data available for this section [facility] Summary Purpose Family History No Family History Records Found Advance Directives No Advanced Directives Records FoundNo Advanced Directives Records Found Additional Source Comments Patient Care team informatio n (unrecognized section and content) 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 Relationship Specialty Start Date End Date Rosita Casas MD [address] [place] [address] PCP - Medical [facility] 08/11/22 Rosita Casas MD [address] [place] [address] PCP - General Family Medicine 10/07/22 Parul Henderson PA [address] [place] [address] Physician [employer]ilities Repairer Family Medicine 10/07/22 INFORMATION SOURCE (unrecogn ized section and content) DATE CREATED AUTHOR 05/19/2023 [facility] [place] DATE CREATED AUTHOR [facility]'S [facility] 08/10/2023 [facility] FOR RECORDS PERTAINING TO PATIENTS WHO [...] BE BASED ON THE PRIMARY CLINICAL RECORDS. [facility] [employer] provides no warranty or guarantee of the accuracy or completeness of information in this document.
[2023-08-14] MEDS: 0.9 % SODIUM CHLORIDE 1,000 ML 125 ML IV ×3 (05:22→15:24)
[2023-08-14] MEDS: OXYTOCIN/0.9 % SODIUM CHLORIDE 10 UNITS/500 ML PLAST..BAG 6 UNIT IV (05:55)
[2023-08-14 06:22] LABS: Hemoglobin 12.1 g/dL (12.0-16.0); Mean Corpuscular HGB Conc 33.6 g/dL (29.9-35.2); Mean Corpuscular Hemoglobin 30.6 pg (26.7-34.0); Mean Corpuscular Volume 90.9 fL (81.0-99.0); Mean Platelet Volume 10.6 fL (9.5-13.5); Platelet Count 223 10^3/uL (150-450); Red Blood Count 3.96 10^6/uL (4.20-5.40); Red Cell Distribution Width 12.8 % (11.0-15.0); White Blood Count 9.2 10^3/uL (4.0-11.0)
[2023-08-14 06:32] LABS: Amphetamine Screen Urine NEGATIVE (NEGATIVE); Barbiturates Screen Urine NEGATIVE (NEGATIVE); Benzodiazepines Screen Urine NEGATIVE (NEGATIVE); Buprenorphine Screen Urine NEGATIVE (NEGATIVE); Cannabinoid Screen Urine NEGATIVE (NEGATIVE); Cocaine Screen Urine NEGATIVE (NEGATIVE); Methadone Screen Urine NEGATIVE (NEGATIVE); Methamphetamines Screen Urine NEGATIVE (NEGATIVE); Opiate Screen Urine NEGATIVE (NEGATIVE); Oxycodone Screen Urine NEGATIVE (NEGATIVE); Phencyclidine Screen Urine NEGATIVE (NEGATIVE); Tricyclic Antidepressant Urine NEGATIVE (NEGATIVE)
[2023-08-14] MEDS: ROPIVACAINE HCL/PF 400 MG/200 ML PREMIX 6 MG EPIDURAL (13:20)
[2023-08-14] MEDS: EPHEDRINE SULFATE 50 MG/ML VIAL IV (14:30)
[2023-08-14] MEDS: OXYTOCIN/0.9 % SODIUM CHLORIDE 20 UNITS/1,000 ML PLAST..BAG 125 UNIT IV (17:29)
--- NOTE | 2023-08-14 17:32 | PM.OBPRCVD ---
Procedure Intrapartal events: None Induction method: per pitocin protocol Delivery augmentation: rupture of membranes and pitocin Delivery monitor: external FHT and external uterine Route of delivery: Episiotomy Description: none L&D Laceration Description: periurethral - 1st degree Delivery repair: Vicryl Estimated blood loss (mL): 350 Anesthesia type: Epidural Disposition: floor Infant presentation: vertex
[2023-08-14] MEDS: GLYCERIN/WITCH HAZEL PADS 1 PAD TOPICAL (20:14)
[2023-08-14] MEDS: BENZOCAINE/MENTHOL 85 GRAM SPRAY BOTTLE 1 APPLIC TOPICAL (20:14)
[2023-08-15 01:14] VITALS: BP 111/58; PULSE 100; TEMP 36.3
[2023-08-15 05:35] LABS: Basophils Percent Auto 0.3 % (0.2-2.0); Eosinophils Percent Auto 0.1 % (0.9-7.0); Hematocrit 30.9 % (36.0-48.0); Hemoglobin 10.5 g/dL (12.0-16.0); Immature Granulocytes Abs Auto 0.21 10^3/uL (0.00-0.03); Immature Granulocytes Pct Auto 1.6 % (0.0-0.5); Lymphocytes Absolute Auto 2.4 10^3/uL (1.2-3.8); Lymphocytes Percent Auto 18.7 % (20.5-60.0); Mean Corpuscular Hemoglobin 30.9 pg (26.7-34.0); Mean Corpuscular Volume 90.9 fL (81.0-99.0); Mean Platelet Volume 9.4 fL (9.5-13.5); Monocytes Absolute Auto 0.6 10^3/uL (0.3-0.8); Monocytes Percent Auto 4.4 % (1.7-12.0); Neutrophils Absolute Auto 9.6 10^3/uL (1.4-6.5); Neutrophils Percent Auto 74.9 % (43.0-75.0); Platelet Count 164 10^3/uL (150-450); Red Cell Distribution Width 13.1 % (11.0-15.0); White Blood Count 12.9 10^3/uL (4.0-11.0)
--- NOTE | 2023-08-15 06:54 | PM.OBPN ---
OB - PN: Subj Subjective Patient comments: no complaints and pain well controlled [place] status: doing well Exam Constitutional Vital Signs, click to edit/add: Last Vital Signs Temp 97.3 F L 08/15/23 01:14 Pulse 100 H 08/15/23 01:14 Resp 20 08/14/23 19:35 BP 111/58 08/15/23 01:14 O2 Del Method Room Air 08/14/23 19:35 Documenting provider has reviewed patient's vital signs: yes Common normals: no apparent distress Respiratory Common normals: normal respiratory effort and clear to auscultation bilaterally Cardio Common normals: regular rate and regular rhythm GI Common normals: Normal to inspection, nondistended, normoactive bowel sounds present Extremity Common normals: no clubbing, cyanosis or edema and no calf tenderness Results Labs Labs: Short CBC 08/15/23 Range/Units 05:25 WBC 12.9 H (4.0-11.0) 10^3/uL Hgb 10.5 L (12.0-16.0) g/dL Hct 30.9 L (36.0-48.0) % Plt Count 164 (150-450) 10^3/uL OB - PN: A/P Plan - Vaginal Delivery day: 1 Plan: routine care Time Spent with Patient Time: Total time spent is greater than 50% in coordination of care (as documented) at patient's floor/unit and/or counseling patient: Total time spent with greater than 50% in coordination of care (as documented) at patient's floor/unit and/or counseling patient: less than 15 minutes
[2023-08-15 07:20] VITALS: BP 120/68; PULSE 83; TEMP 36.6; O2SAT 97
--- NOTE | 2023-08-15 08:21 | PC.NURSE ---
Pt awake and sitting in bed, sig other at bedside and both are watching infant in bassinet. Baby clearly displays feeding cues by rooting on hands, turning head side to side. LC into room for assessments and feeding assist. Reviewed feeding cues of infant and offers to help pt with latching. Pt response is I'm not ready yet VSS and assessment WNL. Pt does states has headache and points to frontal/forehead. Rates discomfort a 3/10. Requesting Tylenol as able. Baby assessed with parents and VSS . Assessment WNL as well. Currently dry diaper noted.
[2023-08-15] MEDS: DOCUSATE SODIUM 100 MG CAPSULE PO (10:00)
[2023-08-15] MEDS: ACETAMINOPHEN 325 MG TABLET 650 MG PO (10:00)
[2023-08-15 17:13] VITALS: BP 114/67; PULSE 90
[2023-08-16 00:03] VITALS: BP 103/59; PULSE 109
[2023-08-16 00:09] VITALS: TEMP 38.2
--- NOTE | 2023-08-16 07:34 | P.OBPN_ITS ---
OB - PN: Subj Subjective Patient comments: no complaints and pain well controlled [place] status: doing well Exam Constitutional Vital Signs, click to edit/add: Last Vital Signs Temp 100.8 F H 08/16/23 00:09 Pulse 109 H 08/16/23 00:03 Resp 18 08/16/23 00:09 BP 103/59 08/16/23 00:03 Pulse Ox 97 08/15/23 07:20 O2 Del Method Room Air 08/16/23 00:09 Documenting provider has reviewed patient's vital signs: yes Common normals: no apparent distress Respiratory Common normals: normal respiratory effort and clear to auscultation bilaterally Cardio Common normals: regular rate and regular rhythm GI Common normals: Normal to inspection, nondistended, normoactive bowel sounds present Extremity Common normals: no clubbing, cyanosis or edema and no calf tenderness OB - PN: A/P Plan - Vaginal Delivery day: 2 Plan: routine care, discharge home and follow up 6 weeks Time Spent with Patient Time: Total time spent is greater than 50% in coordination of care (as documented) at patient's floor/unit and/or counseling patient: Total time spent with greater than 50% in coordination of care (as documented) at patient's floor/unit and/or counseling patient: less than 15 minutes
[2023-08-16 08:23] VITALS: BP 105/57; PULSE 103
[2023-08-16 08:25] VITALS: TEMP 36.6
[2023-08-16] MEDS: DOCUSATE SODIUM 100 MG CAPSULE PO (08:27)
[2023-08-16] MEDS: ADACEL DIPH,PERTUSS(ACELL),TET VAC/PF 0.5 ML ADULT SYRINGE IM (13:40)
== END 2023-08-16 14:30 | disposition home or self-care (01) | DRG 560 ==
PROVIDERS: Admitting Provider Obstetrics & Gynecology; Visit Provider Obstetrics & Gynecology
DX: O99.334 Smoking (tobacco) complicating childbirth (principal); F17.290 Nicotine dependence, other tobacco product, uncomplicated; O70.0 First degree perineal laceration during delivery; Z3A.39 39 weeks gestation of pregnancy; Z37.0 Single live birth
CPT/HCPCS: 36415; 51702; 59050; 59410; 80307; 85025; 85027; 86850; 86900; 86901; 90471; 90715; 96374; 96375; 96376

== ENCOUNTER 2023-08-18 08:25 | Outpatient (OUT) | payer MEDICAID, SELFPAY ==
--- OUTSIDE RECORDS SUMMARY | 2023-08-18 08:30 | XMS_ITS | CCD ---
Author Organization [facility] Care Team Providers Care Railroad Watchman Name Role Phone Rosita Casas Primary Care Physician [phone] Rosita Casas MD Unavailable Rosita Casas MD Primary Care Provider Parul Cordova Unavailable HAVEN MERA Attending Unavailable ROSITA ACSAS Attending Unavailable HUNTER, ADRIAN Attending Unavailable EDE, HAVEN Attending Unavailable HUNTER, ADRIAN Attending Unavailable HUNTER, ADRIAN Attending Unavailable HUNTER, ADRIAN Attending Unavailable EDE, HAVEN Attending Unavailable EDE, HAVEN Attending Unavailable HUNTER, ADRIAN Attending Unavailable EDE, HAVEN Attending Unavailable HUNTER, ADRIAN Attending Unavailable Ronald Cisneros Attending Unavailable HUNTER, Adrian R Admitting Unavailable HUNTER, Adrian R Attending Unavailable Becki ROBISON Attending Unavailable Rosita Casas Admitting Unavailable Rosita Casas Attending Unavailable Rosita Casas Referring Unavailable Medications Current Medications Medication Drug Class(es) [...] diseases of tonsils and adenoids] Onset: 10-14-2022 3 Chronic Results Test Name Value Interpretation Reference Range Facility Quantiferon-TB Plus (Client Incubated)on 05-04-2023 Gamma interferon background IA Qn (Bld) 0.00 International_Unit/mL Invalid Interpretation Code [facility] Comment on above: Performed By: #### 1 [id number], [id number], [id number], [id number] #### [facility] [address] [place] [address] 10201 M. tuberculosis stim IFN-g by CD4+ CD8+ T-cells corrected for background Qn (Bld) 0.01 International_Unit/mL Invalid Interpretation Code [facility] Comment on above: Performed By: #### 1 [id number], [id number], [id number], [id number] #### [facility] [address] [place] [address] M. tuberculosis stim IFN-g by CD4+ T-cells corrected for background Qn (Bld) 0.01 International_Unit/mL Invalid Interpretation Code [facility] Comment on above: Performed By: #### 1 2452671, [id number], [id number], [id number] #### [facility] [address] [place] [address] 6[address]13 M. tuberculosis stim IFN-g Ql (Bld) [Interp] Negative Invalid Interpretation Code Negative [facility] Comment on above: Result Comment: No [...] interferon gamma. Chemiluminescence immunoassay methodology Performed at: [facility] [id number] PhD Nathaniel Boone Performed By: #### 1 8839363, [id number], [id number], [id number] #### [facility] [address] [place] [address] Mitogen stimulated gamma interferon corrected for background Qn (Bld) >10.00 Invalid Interpretation Code [facility] Comment on above: Performed By: #### 1 3959504, [id number], [id number], 0755162 #### [facility] [address] [place] [address] Service comment (Unsp spec) [Interp] Comment Invalid Interpretation Code [facility] Comment on above: Result Comment: Jaime [...] for the test. Performed By: #### 1 4272223, [id number], [id number], 9757698 #### [facility] [address] [place] [address] Hep Bs Abon 05-03-2023 HBV surface Ab Ql (S) Non-Reactive Invalid Interpretation Code [facility] Comment on above: Result Comment: Non Reactive: Inconsistent with immunity, less than 10 mIU/mL Reactive: Consistent with immunity, greater than 9.9 mIU/mL Performed at: [address] [id number] PhD Nathaniel Boone Performed By: #### 1 6540972, [id number], [id number], 4997953 #### [facility] [address] [place] [address] Measles/Mumps/Rubella Immuni tyon 05-03-2023 MeV IgG IA Qn (S) 117.0 A unit/mL Invalid Interpretation Code Immune >16.4 [facility] Comment on above: Result Comment: Nega tive <13.5 Equivocal 13.5 - 16.4 Positive >16.4 Presence of antibodies to Rubeola is presumptive evidence of immunity except when acute infection is suspected. Performed By: #### 1 [id number], [id number], [id number], [id number] #### [facility] [address] [place] 0970757 MuV IgG IA Qn (S) 31.7 A unit/mL Invalid Interpretation Code Immune >10.9 [facility] Comment on above: Result Comment: Nega tive <9.0 Equivocal 9.0 - 10.9 Positive >10.9 A positive result generally indicates past exposure to Mumps virus or previous vaccination. Performed at: [address] [id number] PhD Nathaniel Boone Performed By: #### 1 1620656, [id number], [id number], 6290244 #### [facility] [address] [address]70757 Rubella virus IgG Qn (S) 2.07 [IU]/mL Invalid Interpretation Code Immune >0.99 [facility] Comment on above: Result Comment: Non- immune <0.90 Equivocal 0.90 - 0.99 Immune >0.99 Performed By: #### 1 3661829, [id number], [id number], 5247050 #### [facility] [address] [place] [address] Varic IgGon 05-03-2023 VZV IgG IA Qn (S) 180 Invalid Interpretation Code Immune >165 [facility] Comment on above: Result Comment: Nega tive <135 Equivocal 135 - 165 Positive >165 A positive result generally indicates exposure to the pathogen or administration of specific immunoglobulins, but it is not indication of active infection or stage of disease. Performed at: [address] [id number] PhD Nathaniel Boone Performed By: #### 1 6170631, [id number], [id number], 0138650 #### [facility] [address] [place], [place] [address] ALL CBC WITH AUTO DIFFon BASOPHILS ABSOLUTE AUTO 0.0 [facility] Basophils/100 WBC (Bld) 0.3 % 0.2 - 2.0 % [facility] Eosinophils/100 WBC (Bld) 0.9 % 0.9 - 7.0 % [facility] Erythrocyte distribution width (RBC) [Ratio] 12.3 % 11.0 - 15.0 % [facility] Hematocrit (Bld) [Volume fraction] 35.3 % Low 36.0 - 48.0 % [facility] Hemoglobin (Bld) [Mass/Vol] 11.7 g/dL Low 12.0 - 16.0 g/dL [facility] IMMATURE GRANULOCYTES ABS AUTO 0.18 High [facility] Immature granulocytes/100 WBC (Bld) 1.8 % High 0.0 - 0.5 % [facility] Interpretation and review of laboratory results Abnormal [facility] LYMPHOCYTES ABSOLUTE AUTO 1.4 [facility] Lymphocytes/100 WBC (Bld) 14.1 % Low 20.5 - 60.0 % [facility] MCH (RBC) [Entitic mass] 31.7 pg 26.7 - 34.0 pg [facility] MCHC (RBC) [Mass/Vol] 33.1 g/dL 29.9 - 35.2 g/dL [facility] MCV (RBC) [Entitic vol] 95.7 fL 81.0 - 99.0 fL [facility] MONOCYTES ABSOLUTE AUTO 0.4 [facility] Monocytes/100 WBC (Bld) 4.0 % 1.7 - 12.0 % [facility] NEUTROPHILS ABSOLUTE AUTO 8.1 High [facility] Neutrophils/100 WBC (Bld) 78.9 % High 43.0 - 75.0 % [facility] Platelet mean volume (Bld) [Entitic vol] 9.4 fL Low 9.5 - 13.5 fL [facility] TBH EO # 0.1 [facility] TBH PLT [address] [facility] RBC 3.69 Low [facility] WBC 10.2 [facility] .Interpretation:on 3 HCV Ab IA Ql Comment Invalid Interpretation Code [facility] Comment on above: Result Comment: Not infected with HCV unless early or acute infection is suspected (which may be delayed in an immunocompromised individual), or other evidence exists to indicate HCV infection. Performed at: [address] [id number] PhD Nathaniel Boone Performed By: #### 2 782786, 1694682, [id number], 12633499, 257004727, 8625855, 322645869, 8798224370, 400052814 ####[facility] [address] [place] [address] C Urineon 01-08-2023 Bacteria identified Cx Nom [...] Locations R1: This test was performed at: [facility], [address] [place] [address], [address] [place] [address], Normal [facility] Comment on above: Performed By: #### 2 747367 ####[address] [address] HCV Antibody RFX to Quant PC Isreal 01-08-2023 HCV IgG IA Ql Non-Reactive Invalid Interpretation Code Non Reactive [facility] Comment on above: Result Comment: Perf ormed at: [facility] [id number] PhD Nathaniel Boone Performed By: #### 2 756620, 2993328, [id number], 02106547, 797993347, 7070412, 158132822, [id number], 569621843 ####[facility] [address] [place] [address] HIV Screen 4th Generation wR fxon 01-08-2023 HIV 1+2 Ab+HIV1 p24 Ag IA Ql Non-Reactive Invalid Interpretation Code Non Reactive [facility] Comment on above: Result Comment: HIV Negative HIV-1/HIV-2 antibodies and HIV-1 p24 antigen were NOT detected. There is no laboratory evidence of HIV infection. Performed at: [address] [id number] PhD Nathaniel Boone Performed By: #### 2 460187, 7482598, 8600949615, 57194316, 586120940, 0754152, 484090253, 9552063364, 541150446 ####[facility] [address] [place] [address] Hep Bs Agon 01-08-2023 HBV surface Ag IA Ql Negative Invalid Interpretation Code Negative [facility] Comment on above: Result Comment: Perf ormed at: [address] [id number] PhD Nathaniel Boone Performed By: #### 2 187532, 1656900, [id number], 75816963, 533708770, 8557360, 920388153, 8319829161, 910717469 ####[facility] [address] [place] [address] RPR with Conf Rfxon 01-09-20 Reagin Ab RPR Ql (S) Non-Reactive Invalid Interpretation Code Non Reactive [facility] Comment on above: Result Comment: Perf ormed at: [address] [id number] PhD Nathaniel Boone Performed By: #### 2 233698, 5132178, 4685549574, 95015111, 533548266, 7068608, 094414851, 7294895559, 637698421 #### [facility] [address] [place] [address] Rubella IgGon 01-08-2023 Rubella virus IgG Qn (S) 3.20 [IU]/mL Invalid Interpretation Code Immune >0.99 [facility] Comment on above: Result Comment: Non- immune <0.90 Equivocal 0.90 - 0.99 Immune >0.99 Performed at: [address] [id number] PhD Nathaniel Boone Performed By: #### 2 826494, 6620918, 1043766208, 30346869, 011891578, 9655133, 891956281, 1431467794, 788890398 ####[facility] [address] [place] [address] ABO/Rhon 01-06-2023 ABO/Rh Positive Invalid Interpretation Code [facility] Comment on above: Performed By: #### 2 639156, 05463682, 59603671 ####[facility] [address] [place] [address] ABO/Rh History Checkon 01-06 ABO/Rh History Check Verified Hx Blood Type Normal [facility] Comment on above: Performed By: #### 2 857028, 78763844, [id number] ####[facility] [address] [place] [address] ABSCon 01-06-2023 ABSC Gel Interp Negative Normal [facility] Comment on above: Performed By: #### 2 909368, 30679963, 89506789 ####[facility] [address] [place] [address] BLOOD BANKOrdered By: Hollie Zavala on 01-06-2023 ABO/Rh Interp Positive Invalid Interpretation Code [facility] BB Subsection ABSC Gel Interp Negative (01/06/23 3:05 PM) Normal [facility] BB Subsection CBC w/Indiceson 01-06-2023 Erythrocyte distribution width (RBC) [Ratio] 12.8 % Normal 10.9-14.2 [facility] Comment on above: Performed By: #### 2 119165, 1686362, 7873332734, 06266015, 263011803, 5496836, 214111328, 6298254139, 463157036 #### [facility] [address] [place] [address] Hematocrit (Bld) [Volume fraction] 40.8 % Normal 34.0-46.0 [facility] Comment on above: Performed By: #### 2 293351, 2378411, 7037890133, 63195486, 572782428, 1952128, 220099131, 6666921177, 860222041 #### [facility] [address] [place] [address] Hemoglobin (Bld) [Mass/Vol] 13.8 g/dL Normal 12.0-16.0 [facility] Comment on above: Performed By: #### 2 237511, 1216541, 2215764452, 62802945, 108823886, 9100556, 076991710, 9521859465, 621394295 #### [facility] [address] [place] [address] MCH (RBC) [Entitic mass] 31.6 pg Normal 27.0-34.0 [facility] Comment on above: Performed By: #### 2 190718, 5074320, 3981877058, 29684042, 808128760, 3915005, 486185225, 4959102220, 085970416 #### [facility] [address] [place] [address]23[address] MCHC (RBC) [Mass/Vol] 33.7 g/dL Normal 31.4-36.0 [facility] Comment on above: Performed By: #### 2 959877, 1803295, 3648134488, 10750026, 460128970, 6385204, 777353103, 3307590244, 437937892 #### [facility] [address] [place] [address] MCV (RBC) [Entitic vol] 93.7 fL Normal 80.0-100.0 [facility] Comment on above: Performed By: #### 2 454384, 6708885, 8007701584, 74124016, 266716801, 5948574, 436910991, 1708861534, 994789813 #### [facility] [address] [place] [address] Platelet mean volume (Bld) [Entitic vol] 8.1 fL Normal 6.4-10.8 [facility] Comment on above: Performed By: #### 2 419880, 4068501, 9189134185, 27185183, 161324458, 6863807, 710441045, 8082567681, 488005298 #### [facility] [address] [place] [address] Platelets (Bld) [#/Vol] 345.0 E9/L Normal 150.0-500.0 [facility] Comment on above: Performed By: #### 2 680671, 0475602, 9346867300, 17156632, 264132289, 2750005, 379482026, 8461701298, 334006076 #### [facility] [address] [place] [address] RBC (Bld) [#/Vol] 4.4 E12/L Normal 4.3-5.9 [facility] Comment on above: Performed By: #### 2 146084, 9319159, 1803272704, 74349356, 238766242, 0408232, 953148080, 8893956878, 423386171 #### [facility] [address] [place] [address] WBC corrected for nucl RBC Auto (Bld) [#/Vol] 9.8 E9/L Normal 4.0-11.0 [facility] Comment on above: Performed By: #### 2 137950, 3972230, 2575486521, 95168213, 544305303, 7025193, 714896018, 7738517328, 449345185 #### [facility] [address] [place] [address] CHEMISTRYOrdered By: Maryann Brooke on 01-06-2023 HbA1c (Bld) [Mass fraction] 5.0 % Normal <=5.9% [facility] ChemAutoSS CHEMISTRYOrdered By: SYSTEM SYSTEM on 01-06-2023 TSH Qn 1.74 m[IU]/L Normal 0.34 - 5.60 mcIU/mL [facility] Remisol Consent for Treatmenton 12-12 Consent for Treatment [id number] .[id number] Normal [facility] HEMATOLOGYOrdered By: Hollie Zavala on 01-06-2023 [...] Normal 4.0 - 11.0 E9/L [facility] HemeAutoSS ByyW2shv 01-06-2023 HbA1c (Bld) [Mass fraction] 5.0 % Normal <=5.9 [facility] Comment on above: Performed By: #### 2 829174, 2889074, 4238248332, 33213310, 815383123, 9567283, 802793784, 3549874509, 533768321 #### [facility] [address] [place] [address] Physician Orderon 01-06-2023 Physician Order [id number] .00TIFF Normal [facility] TSHon 01-06-2023 TSH Qn 1.74 m[IU]/L Normal 0.34-5.60 [facility] Comment on above: Performed By: #### 2 590024, 1969419, 0057205608, 83591594, 226193530, 1819337, 854546330, 2251431680, 888025855 #### [facility] [address] [place] [address] US Thyroidon 10-21-2022 US Thyroid Exam Date/Time: [...] Douglas MD Transcribed by: JAG Technologist: THALIA [facility] Consent for Treatmenton 10-11 Consent for Treatment [id number] .00CD:127 [facility] Physician Orderon 10-17-2022 Physician Order [id number] .00CD:127 [facility] Encounters Encounter Date Encounter Type Care Provider Facility Start: 08-09-2023 End: 08-09-2023 ambulatory ADRIAN HUNTER Not Available Start: 08-02-2023 End: 08-02-2023 ambulatory HAVEN EDE Not Available Start: 07-27-2023 End: 07-27-2023 ambulatory ADRIAN HUNTER Not Available Start: 07-20-2023 End: 07-20-2023 ambulatory HAVEN EDE Not Available Start: 07-04-2023 End: 07-04-2023 ambulatory HAVEN EDE Not Available Start: 06-20-2023 End: 06-20-2023 ambulatory ADRIAN HUNTER Not Available Start: 05-24-2023 End: 05-24-2023 ambulatory ADRIAN HUNTER Not Available Start: 05-18-2023 End: 08-16-2023 ambulatory Ronald Cisneros Facility:[facility] Start: 05-09-2023 End: 05-09-2023 ambulatory HAVEN EDE Not Available Start: 05-02-2023 End: 05-02-2023 ambulatory Becki ROBISON Facility:[facility] Start: 04-27-2023 [facility] Result Encounter Adrian Hunter DO Work Phone: [facility] Unsolicited Start: 04-27-2023 [facility] Result Encounter Adrian Hunter DO Work Phone: [facility] Unsolicited Start: 04-10-2023 End: 04-10-2023 ambulatory ADRIAN HUNTER Not Available Start: 03-10-2023 End: 03-10-2023 ambulatory ROSITANICANOR CASAS Not Available Start: 03-09-2023 End: 03-09-2023 ambulatory HAVEN MERA Not Available Start: 02-06-2023 End: 02-06-2023 ambulatory ADRIAN HUNTER Not Available Start: 01-06-2023 End: 01-06-2023 ambulatory Adrian R HUNTER Facility:[facility] Start: 01-06-2023 End: 01-06-2023 Patient encounter procedure Adrian R HUNTER [facility] Start: 10-20-2022 End: 10-20-2022 ambulatory Rosita Casas Facility:[facility] Start: 10-20-2022 End: 10-20-2022 Patient encounter procedure Rosita Overton Casas [facility] Procedures Date Procedure Procedure Detail Performing Clinician Start: 04-27-2023 ALL CBC WITH AUTO DIFF Adrian Hunter DO Work Phone: Plan of Treatment Date Care Activity Detail Author Start: 05-09-2023 End: 05-09-2023 Patient encounter procedure 05/09/2023 2:40 PM EST Routine [facility] [address] [place] [address] Haven Mera, [place] [address] [place], [place] [id number] [facility] Start: 11-11-2022 Influenza vaccination Influenza Vacc ine (#1) [facility] Immunizations Immunization Date Immunization Notes Care Provider Fa [facility] 02-17-2017 hepatitis A vaccine, pediatric/adolescent dosage, 2 dose schedule Adrian Hunter DO Work Phone: [facility] 02-17-2017 meningococcal B vacc ine, recombinant, OMV, adjuvanted Adrian Hunter DO Work Phone: [facility] 11-11-2016 meningococcal B vacc ine, recombinant, OMV, adjuvanted Adrian Hunter DO Work Phone: [facility] 11-11-2016 meningococcal oligosaccharide (groups A, C, Y and W-135) diphtheria toxoid conjugate vaccine (MCV4O) Adrian Hunter DO Work Phone: [facility] 08-01-2016 hepatitis A vaccine, pediatric/adolescent dosage, 2 dose schedule Adrian Hunter DO Work Phone: [facility] 08-01-2016 typhoid capsular polysaccharide vaccine Adrian Hunter DO Work Phone: [facility] 10-26-2011 tetanus toxoid, redu garcia diphtheria toxoid, and acellular pertussis vaccine, adsorbed Adrian Hunter DO Work Phone: [facility] 07-28-2004 diphtheria, tetanus toxoids and acellular pertussis vaccine, unspecified formulation Adrian Hunter DO Work Phone: [facility] 07-28-2004 measles, mumps and r ubella virus vaccine Adrian Hunter DO Work Phone: [facility] 07-28-2004 poliovirus vaccine, inactivated Adrian Hunter DO Work Phone: [facility] 12-20-2000 pneumococcal conjuga te vaccine, 7 valent Adrian Hunter DO Work Phone: [facility] 07-12-2000 diphtheria, tetanus toxoids and acellular pertussis vaccine, unspecified formulation Adrian Hunter DO Work Phone: [facility] 07-12-2000 haemophilus influenz ae type b vaccine, PRP-OMP conjugate Adrian Hunter DO Work Phone: [facility] 07-12-2000 measles, mumps and r ubella virus vaccine Adrian Hunter DO Work Phone: [facility] 07-12-2000 pneumococcal conjuga te vaccine, 7 valent Adrian Hunter DO Work Phone: [facility] 07-12-2000 varicella virus vaccine Core y Hunter DO Work Phone: [facility] 02-16-2000 hepatitis B vaccine, pediatric or pediatric/adolescent dosage Adrian Hunter DO Work Phone: [facility] 02-16-2000 pneumococcal conjuga te vaccine, 7 valent Adrian Hunter DO Work Phone: [facility] 02-16-2000 poliovirus vaccine, inactivated Adrian Hunter DO Work Phone: [facility] 1999 diphtheria, tetanus toxoids and acellular pertussis vaccine, unspecified formulation Adrian Hunter DO Work Phone: [facility] 1999 haemophilus influenz ae type b vaccine, PRP-OMP conjugate Adrian Hunter DO Work Phone: [facility] 1999 diphtheria, tetanus toxoids and acellular pertussis vaccine, unspecified formulation Adrian Hunter DO Work Phone: [facility] 1999 haemophilus influenz ae type b vaccine, PRP-OMP conjugate Adrian Hunter DO Work Phone: [facility] 1999 hepatitis B vaccine, pediatric or pediatric/adolescent dosage Adrian Hunter DO Work Phone: [facility] 1999 poliovirus vaccine, inactivated Adrian Hunter DO Work Phone: [facility] 1999 diphtheria, tetanus toxoids and acellular pertussis vaccine, unspecified formulation Adrian Hunter DO Work Phone: [facility] 1999 haemophilus influenz ae type b vaccine, PRP-OMP conjugate Adrian Hunter DO Work Phone: [facility] 1999 hepatitis B vaccine, pediatric or pediatric/adolescent dosage Adrian Hunter DO Work Phone: [facility] 1999 poliovirus vaccine, inactivated Adrian Hunter DO Work Phone: [facility] Payers Date Payer Category Payer Medicaid [id number] 2021 Unknown [id number] 2021 Unknown [id number] 1999 Unknown [id number] 2.16.84 0.1.205652.3.579.2.1259 1999 Unknown [id number] 2.16.84 0.1.782810.3.579.2.1259 1999 Unknown [id number] 2.16.84 0.1.141205.3.579.2.1259 1999 Unknown [id number] 2.16.84 0.1.701136.3.579.2.1259 1999 Unknown [id number] 2.16.84 0.1.102368.3.579.2.1259 1999 Unknown [id number] 2.16.84 0.1.065319.3.579.2.9 1999 Unknown [id number] 2.16.84 0.1.634221.3.579.2.1259 1999 Unknown [id number] 2.16.84 0.1.873606.3.579.2.9 1999 Unknown [id number] 2.16.84 0.1.190689.3.579.2.1259 1999 Unknown [id number] 2.16.840 .1.726338.3.579.2.1259 1999 Unknown [id number] 2.16.840 .1.966435.3.579.2.1259 1999 Unknown [id number] 2.16.840 .1.495400.3.579.2.1259 1999 Unknown [id number] 2.16.8 40.1.714355.3.579.2.727 1999 Unknown [id number] 2.16.8 40.1.979501.3.579.2.727 1999 Unknown [id number] 2.16.8 40.1.297672.3.579.2.727 1999 Unknown [id number] 2.16.8 40.1.417592.3.579.2.727 Social History Date Type Detail Facility Tobacco smoking status Chacha velazquez [facility] Start: 10-11-2022 End: 03-10-2023 Sex Assigned At Female [facility] Start: 10-14-2022 Tobacco smoking status NHIS Never smoked tobacco [facility] Start: 10-14-2022 [...] 01/06/23HCV Antibody RFX to Quant PCR 01/06/23 [facility] Evaluation + Plan note Note Date & Type Note Facility Evaluation + Plan note No data available for this section [facility] Hospital Discharge instructions Note Date & Type Note Facility Hospital Discharge instructions No data available for this section [facility] Progress note Note Date & Type Note Facility Progress note No data available for this section [facility] Summary Purpose Family History No Family History Records Found Advance Directives No Advanced Directives Records FoundNo Advanced Directives Records Found Additional Source Comments Patient Care team informatio n (unrecognized section and content) Railroad Watchman Relationship Specialty Start Date End Date Rosita Casas MD [address] [place] [address] PCP - Medical [facility] 08/11/22 Rosita Casas MD [address] [place] [address] PCP - General Family Medicine 10/07/22 Parul Henderson PA [address] [place] [address] Physician Material Mover Family Medicine 10/07/22 INFORMATION SOURCE (unrecogn ized section and content) DATE CREATED AUTHOR 08/10/2023 [facility] DATE CREATED AUTHOR AUTHOR'S ORGANIZ ATION 08/18/2023 [facility] FOR RECORDS PERTAINING TO PATIENTS WHO ARE [...] BE BASED ON THE PRIMARY CLINICAL RECORDS. [facility] provides no warranty or guarantee of the accuracy or completeness of information in this document.
--- NOTE | 2023-08-18 15:22 | PC.NURSE ---
Rhina and 4 day old Gaurav arrives for follow up visit. Rhina expresses I am exhausted Relates having a baby is hard, they wake up every few hours, needs fed and held, all the stuff FOB here and is supportive. Rhina states feels well other than being tired. Milk is coming in today. Pt has decided to pump and feed instead of direct breast feeding. Does not want to be the only person able to feed the baby. VSS and assessment WNL.. Assisted with flange fit for pumping and discussed pumping schedule. Baby Gaurav doing well with 5 wets since 8 AM and 3 green/brown stools. Taking 1.5 oz breast milk or formula as parents decide. Retains feeds. VSS and assessment WNL. No concerns noted for . Family home together. Aware to call for questions or concerns. Aware of [facility] group as well.
[2023-08-18 15:25] VITALS: BP 100/67; PULSE 88; TEMP 36.9; O2SAT 96
== END 2023-08-18 15:28 | disposition home or self-care (01) ==
LOC: FBCO 08:25
PROVIDERS: Visit Provider Obstetrics & Gynecology
DX: Z39.2 Encounter for routine postpartum follow-up (principal)

== ENCOUNTER 2025-02-14 11:38 | Outpatient (OUT) | payer MEDICAID, SELFPAY ==
--- OUTSIDE RECORDS SUMMARY | 2025-02-14 11:42 | XMS_ITS | CCD ---
[facility] Organization [facility] Providers Care Assembler Watch Train Name Role Phone Rosita Casas Primary Care Physician Rosita Caass MD Unavailable Rosita Casas MD Primary Care Provider Parul Cordova Unavailable [phone] Ronald Cisneros Attending Unavailable Misha Berger Attending Unavailable Becki ROBISON Attending Unavailable ROSITA CASAS Attending Unavailable ROSITA CASAS Attending Unavailable Rosita Casas Admitting Unavailable Rosita Casas Attending Unavailable Tom SWIFT Attending Unavailable Misha Berger Attending Unavailable Rosita Casas Attending Unavailable Rosita Casas Admitting Unavailable Rosita Casas MD Unavailable [phone] Tom SWIFT Attending Unavailable Allergies Allergy ClassificationReported Allergen(s)Allergy TypeDate of OnsetReaction(s) Facility (3 sources)No Known Medication Allergies; Translations: [No Known Medication Allergies]Propensity to adverse reactions (disorder)[facility] Repository Medications Current Medications MedicationDrug Class(es)DatesSig (Normalized)Sig (Original)predniSONE 20 mg oral tablet (2 sources)Start: 12-21-2023 End: 42-25-6308fghd 2 tablets by mouth once dailypredniSONE (Deltasone) 20 MG tablet Indications: Bronchitis Take 2 tablets (40 mg) by mouth Daily for 5 days 10 tablet 12/21/2023 12/26/2023 Active Completed/Discontinued Medications MedicationDrug Class(es)DatesSig (Normalized)Sig (Original)azithromycin 250 mg oral tablet (5 sources)Macrolide AntimicrobialStart: 12-21-2023 End: 68-02-3960ozxmnqudnush (Zithromax) 250 MG tablet Indications: Bronchitis 2 tabs PO for day one, then 1 tab daily for 4 days 6 tablet 12/21/2023 10/22/2024 Discontinued (Therapy completed)desogestrel 0.15 mg / ethinyl estradiol 0.03 mg oral tablet (8 sources)Progestin, EstrogenStart: 09-25-2023 End: 67-12-5507qrpb 1 tablet by mouth once daily, then take 1 tablet by mouth once dailydesogestrel-ethinyl estradiol (Apri) 0.15-30 MG-MCG tablet Indications: care and examination ([facility]) Take 1 tablet by mouth Daily for 28 days Take 1 tablet by mouth daily 28 tablet 12 09/25/2023 10/23/2024 DiscontinuedPrenatal MV & Min w/FA-DHA ( Gummies) 0.18-25 MG chewable tablet (3 sources)Start: 12-29-2022 End: 41-54-9294Gjlrohma MV & Min w/FA-DHA ( Gummies) 0.18-25 MG chewable tablet Indications: Missed menses Chew 0.18 mg in the morning. 30 tablet 11 12/29/2022 09/25/2023 DiscontinuedStart: 12-29-2022 End: 79-23-5217Hcrshllm MV & Min w/FA-DHA ( Gummies) 0.18-25 MG chewable tablet Indications: Missed menses Chew 0.18 mg in the morning. 30 tablet 11 12/29/2022 12/29/2023 Active Problems Active Problems Problem ClassificationProblemDateDocumented DateEpisodic/ChronicAcute and chronic tonsillitis (14 sources)Amygdalolith; Translations: [Other chronic diseases of tonsils and adenoids]Onset: 061283-90-3231TcjhnayTpggxgf obstructive pulmonary disease and bronchiectasis (2 sources)Bronchitis; Translations: [Bronchitis, not specified as acute or chronic]02-69-0266ZwpgudzdTfohj upper respiratory infections (1 source)Acute upper respiratory infection; Translations: [Acute upper respiratory infection, unspecified]Onset: 73-08-0287Baeyltdr Past or Other Problems Problem ClassificationProblemDateDocumented DateEpisodic/ChronicOther and delivery including normal (13 sources)Third trimester ; Translations: [Encounter for supervision of normal , unspecified, third trimester]Onset: 06-20-2023 Resolved: 941215-28-1650OskirzxaDlgvjajs codes; unclassified (13 sources)Gestation period, 32 weeks; Translations: [32 weeks gestation of ]Onset: 06-20-2023 Resolved: 251935-40-9743Mnahyqei Results Test NameValueInterpretationReference RangeFacilityHep Bs Abon 51-84-8053Hge Bs AbReactiveInvalid Interpretation CodeTrihealth Bethesda North HospitalComment on above:Result Comment: Non Reactive: Not immune to HBV infection. Equivocal: Unable to determine if anti-HBs is present at levels consistent with immunity. Reactive: Anti-HBs concentration detected at greater than 10 mIU/mL. Individual is considered to be immune to infection with HBV. Performed at: [address] [id number] PhD Nathaniel BoonePerformed By: #### [id number] #### Varinder [facility] [address], [place] [address]Pynezzg/Mumps/Rubella Immunityon 07-15-8586Qhapb IgG39.7 A unit/mLInvalid Interpretation CodeImmune >10.9[facility] HospitalComment on above:Result Comment: Negative <9.0 Equivocal 9.0 - 10.9 Positive >10.9 A positive result generally indicates past exposure to Mumps virus or previous vaccination. Performed at: [facility] [address] [place] [id number] PhD Nathaniel BoonePerformed By: #### [id number] #### [facility] [address], [place] [address]Mwwqnlz IgG2.89Invalid Interpretation CodeImmune >0.99[facility] HospitalComment on above:Result Comment: Non-immune <0.90 Equivocal 0.90 - 0.99 Immune >0.99Performed By: #### [id number] #### [facility] [address], [place] [address]Qwvicmy BfC709.0 A unit/mLInvalid Interpretation CodeImmune >16.4Fisher [facility] HospitalComment on above:Result Comment: Negative <13.5 Equivocal 13.5 - 16.4 Positive >16.4 Presence of antibodies to Rubeola is presumptive evidence of immunity except when acute infection is suspected.Performed By: #### [id number] #### [facility] [address], [place] [address]Yrvvy IgGon 17-36-3509Xlpaxbnob IgGReactiveInvalid Interpretation CodeNon ReactiveFisher [facility] HospitalComment on above: Result Comment: Please note reference interval change A Reactive result is considered evidence of immunity to VZV. Reactive indicates that VZV IgG was detected consistent with previous infection and/or vaccination. A Non Reactive result indicates that VZV IgG was not detected suggesting that immunity has not been acquired. Performed at: [address] [id number] PhD Nathaniel Adkinsformed By: #### [id number] #### [facility] [address], [place] [address]QWTMS BLUE 53-01-3813Mfakcoea Ordering Provider: MD Rosita Villa [facility] HospitalExsentara [facility] Blue 92-41-8937TAKB COLLECTED PLASMAYes Invalid Interpretation CodeNOMS HealthcareComment on above:Performed By: #### [id number] #### [facility] [address], [place] [id number] Note-Physicianon 42-36-1176LC Note-PhysicianED Note-Physician Basic Information Time Seen: Lazaro ORTEGA, Eliseo Prabhakar 12/16/2023 15:42 Chief Complaint Pt presents to ED with complaints of cough, congestion and chills History of Present Illness A 23-year-old female reports to the emergency department with complaints of cough congestion chills. Is concerned that she has influenza. Wants tested. She states that she has not had any fevers. Denies any sick contacts, but reports that her 4-month-old son, who is with her also has similar like symptoms. Denies any allergies. Review of Systems No other aggravating or relieving factors no other associated symptoms no other prior treatments orcomplaints. Family: Reviewed and noncontributory Social: lives at home Review of systems negative unless otherwise specified in the HPI. Physical Exam Vitals & Measurements T: 36.5 ?C(Oral) HR: 86(Peripheral) RR: 18 BP: 108/74 SpO2: 99% HT: 162 cm WT: 63.5 kg BMI: 24.2 General: The patient appears well and in no apparent distress. Patient is resting comfortably in chair. Afebrile Skin: Warm, dry, no pallor noted. Head: Normocephalic, atraumatic Neck: No JVD Eye: PERRLA, EOMI ENT: Moist mucus membranes. Pharynx pink moist no erythema or exudates. Bilateral TMs intact with no erythema or bulging Cardiovascular: Regular rate normal peripheral perfusion Respiratory: No respiratory distress no accessory muscle use no obvious audible wheezing Chest Wall: no deformity Musculoskeletal: normal ROM, no deformity, no swelling GI: No obvious distention soft nontender nondistended no guarding rebounding or rigidity Neurological: A&O moves all extremities equal strength and symmetry Psychiatric: Cooperative and appropriate Medical Decision Making MEDICAL DECISION MAKING Number and Complexity of Problems Differential Diagnosis: [] [facility] Data External documents reviewed: [] My EKG interpretation: [] My CT interpretation: [] My X-ray interpretation: [] My Ultrasound interpretation: [] Decision rules/scores evaluated: [] Discussed with: [] Treatment and Disposition ED Course: 23-year-old female reports emergency department of upper respiratory- like symptoms. These been going on for last 2 days. Exam the patient is benign. No acute findings. Due to concerns we did do swabs. Swabs are negative. Discussed with the patient. We discussed supportive therapy. Follow-up with your primary care provider in 3 to 5 days. If symptoms worsen, do not improve, or new symptoms arise please report back to emergency department for further evaluation. The patient was understanding and agreeable to plan moving forward. [x] The patient was diagnosed with upper respiratory infection and was not prescribed an antibiotic. [SATISFIES MIPS PERFORMANCE] [ ] The patient has competing comorbid condition within the last 12 months. The comorbid condition was [] (e.g., neutropenia, cystic fibrosis, chronic bronchitis, pulmonary edema, respiratory failure, rheumatoid lung disease). [MIPS PERFORMANCE EXCEPTION/EXCLUSION [ ] The patient is already on antibiotics, or has taken them within the last 30 days. [MIPS PERFORMANCE EXCEPTION/EXCLUSION] [ ] The patient had a competing diagnosis of [] (e.g. acute otitis media, chronic sinusitis, UTI, etc.) [MIPS PERFORMANCE EXCEPTION/EXCLUSION] [ ] The patient was diagnosed with upper respiratory infection and was prescribed or dispensed an antibiotic. [DOES NOT SATISFY MIPS PERFORMANCE] Shared decision making: [] Code status: [] Assessment/Plan Acute URI (J06.9: Acute upper respiratory infection, unspecified) Orders: Influenza A&B Ag Rapid COVID Antigen [place] Disposition Plan Patient Discharge Condition Stable Discharge Disposition To home Discharge Prescription List Prescriptions No active prescription medications Follow-up With When Contact Information Rosita Brayden In 3 days 12/19/2023 EDT [address] [id number] [facility] (1) Additional Instructions: Call Dr for diagnosis based follow up Patient Education Upper Respiratory Infection, Adult, Mnmi-tw-Fzqi Attestation Patient seen and evaluated by the physician accounts payable assistant. Attending physician was present in the emergency department and supervised care. This visit was performed by both the physician and an APC. I performed all aspects of the MDM as documented. This report was transcribed using voice recognition software. Every effort was made to ensure accuracy, however, inadvertently computerized statement request clerk mistakes may be present. Appropriate healthcare PPE was used in evaluating this patient. The patient was placed in a mask. The healthcare provider was wearing mask, gloves, and utilizing proper hand hygiene. All equipment was properly cleansed. I performed a substantive part of the MDM during the patient?s E/M visit. I personally made or approved the documented management plan and acknowledge its risk of compl (more content not included)...[facility] Comment on above:Result Comment: Electronically Signed By: Lazaro ORTEGA, Eliseo Prabhakar\.br\Date and Time Signed: 12/15/2416:41 EDT\.br\Electronically Co-Signed By: Sheila Berger DO\Date and Time Co-Signed: 12/18/23 07:12 EDTED Clinical Summaryon [id number] Clinical SummaryED Clinical Summary [place] [id number] ED Clinical Summary Person Information Name: RHINA PEDRO [place] Age: 23 Years : 2000 Sex: Female Language: Tamazight PCP: Rosita Casas MD Marital Status: Single Phone: [phone] MRN: [id number] Visit Id: Visit Reason: Sinus Pain/Congestion; Chills; Cough; FLU LIKE SYMTOMS - WANTS TESTED Speciality: Acuity: 4 Enc Type: Emergency Med Service: Emergency Arrival: 12/16/2023 15:39:08 Discharge: 12/16/2023 16:57:51 LOS: 000 01:18 Checkin: 12/16/2023 15:39:08 Checkout: 12/16/2023 16:57:51 Dispo Type: Home (Routine DC) EVENTS: Event Name Event Status Request Date/Time Start Date/Time Complete Date/Time Arrive Complete 12/16/2023 15:39:08 12/16/2023 15:39:08 12/16/2023 15:39:08 Document Home Meds Request 12/16/2023 15:39:08 Triage Complete 12/16/2023 15:39:08 12/16/2023 15:57:15 12/16/2023 15:57:15 Dr Exam Complete 12/16/2023 15:42:38 12/16/2023 15:42:38 12/16/2023 15:42:38 Registration Complete 12/16/2023 15:42:38 12/16/2023 15:51:01 12/16/2023 16:02:14 Bed Assign Complete 12/16/2023 15:51:01 12/16/2023 15:51:01 12/16/2023 15:51:01 RN Exam Complete 12/16/2023 15:51:01 12/16/2023 16:21:37 12/16/2023 16:21:37 Dr Exam Complete 12/16/2023 15:51:57 12/16/2023 15:51:57 12/16/2023 15:51:57 Reg Complete Request 12/16/2023 16:02:14 Reg Bed Request Complete 12/16/2023 16:02:14 12/16/2023 16:02:14 12/16/2023 16:02:14 Pending Labs Complete 12/16/2023 16:08:28 12/16/2023 16:45:45 Lab Complete 12/16/2023 16:08:28 12/16/2023 16:45:45 Swab Complete 12/16/2023 16:08:28 12/16/2023 16:45:45 Discharge Complete 12/16/2023 16:48:54 12/16/2023 16:57:54 12/16/2023 16:57:54 Transfer Complete 12/16/2023 16:57:54 12/16/2023 16:57:54 12/16/2023 16:57:54 ADDRESS: [address] [facility] [phone] PHYS DOC NOTES: MEDICAL INFORMATION: Prescriptions Given: PATIENT EDUCATION INFORMATION: Instructions: Upper Respiratory Infection, Adult, Xkbv-go-Ivlv Follow up: With: Address: When: Rosita Casas [facility] [place] [phone] [facility] () In 3 days 12/19/2023 Comments: Call Dr for diagnosis based follow up DIAGNOSIS: Acute URINormalFisher [facility] Patient Summaryon [id number] Patient SummaryED Patient Summary [address] [address] Patient Discharge Instructions Person Information Name: RHINA PEDRO Age: 23 Years Arrival Date: 12/16/2023 15:39:08 Discharge Diagnosis: Acute URI Primary Care Physician: Rosita Casas MD Provider Information Primary Provider: Misha Berger DO Advanced Billing Customer Service Representative:None The exam and treatment you received in the Emergency Department were for an urgent problem and are not intended as complete care. It is important that you follow up with a doctor, nurse practitioner,or physician?s accounts payable assistant for ongoing care. If your symptoms become worse or you do not improve as expected and you are unable to reach your usual health care provider, you should return to the Emergency Department. We are available 24 hours a day. RHINA PEDRO has been given the following list of patient education materials, prescriptions and follow-up instructions: Follow-up Instructions: With: Address: When: Rosita Casas [address] [place] [address] [facility] (1) In 3 days 12/19/2023 Comments: Call Dr for diagnosis based follow up In the event that this physician does not participate in your insurance network, please consult with your insurance company to find a nearby participating provider. Patient Education Materials: Upper Respiratory Infection, Adult, Huym-ys-Zfwn A MESSAGE TO ALL PATIENTS REGARDING OPIOIDS PRESCRIPTION OPIOIDS: WHAT YOU NEED TO KNOW Prescription opioids can be used to help relieve oflmozem-tk-umrdxj pain and are often prescribed following a surgery or injury, or for certain health conditions. These medications can be an important part of the treatment but also come with serious risks. It is important to work with your healthcare provider to make sure you are getting the safest, most effective care. WHAT ARE THE RISKS AND SIDE EFFECTS OF OPIOID USE? Prescription opioids carry serious risks of addiction and overdose, especially with prolonged use. An opioid overdose, often marked by slowed breathing, can cause sudden . The use of prescription opioids can have a number of side effects as well, even when taken as directed: ? Tolerance?meaning you might need to take more of the medication for the same pain relief ? Physical dependence?meaning you have symptoms of withdrawal when a medication is stopped ? Increased sensitivity to pain ? Constipation ? Nausea, vomiting, and dry mouth ? Sleepiness and dizziness ? Confusion ? Depression ? Low levels of testosterone that can result in lower sex drive, energy, and strength ? Itching and sweating RISKS ARE GREATER WITH: ? History of drug misuse, substance use disorder, or overdose ? Mental health conditions (such as depression or anxiety) ? Sleep apnea ? Older age (65 years and older) ? Avoid alcohol while taking prescription opioids. Also, unless specifically advised by your health care provider, medications to avoid include: ? Benzodiazepines (such as Xanax or Valium) ? Muscle relaxants (such as Soma or Flexeril) ? Hypnotics (such as Ambien or Lunesta) ? Other prescription opioids KNOW YOUR OPTIONS Talk to your health care provider about ways to manage your pain that don?t involve prescription opioids. Some of these options may actually work better and have fewer risks and side effects. Optionsmay include: ? Pain relievers such as acetaminophen, ibuprofen, and naproxen ? Some medication that are also used for depression or seizures ? Physical therapy and exercise ? Cognitive behavioral therapy, a psychological, goal-directed approach, in which patients learn how to modify physical, behavioral, and emotional triggers of pain and stress. IF YOU ARE PRESCRIBED OPIOIDS FOR PAIN: ? Never take opioids in greater amounts or more often than prescribed. ? Follow up with your primary health care provider. o Work together to create a plan on how to manage your pain. o Talk about ways to help manage your pain that don?t involve prescription opioids. o Talk about any and all concerns and side effects. ? Help prevent misuse and abuse o Never sell or share prescription opioids. o Never use another person?s prescription opioids. ? Store prescription opioids in a secure place and out of reach of others (this may include visitors, children, friends, and family). ? Safely dispose of unused prescription opioids: Find your community drug take- back program or [employer] mail-back program, or flush them down the toilet, following guidance from the Food and Drug Administration (www.fda.gov/Drugs/ResourcesForYou). ? Visit www.cdc.gov/drugoverdose to learn about the risks of opioids abuse and overdose. ? If you believe you may be struggling with addiction, tell your health rn patient care and ask for guidance or munira (more content not included)...Normal [facility] HospitalInfluenza A&B [facility] 75-48-0624Pmoahdneuy A AgNegative NormalNegativeTrihealth Bethesda North HospitalComment on above:Performed By: #### [id number] #### [facility] [address] [place] [address]Fibcakfqjh B AgNegativeNormalNegativeTrihealth Bethesda North HospitalComment on above:Result Comment: Test sensitivity and specificity vary for age group, specimen type, antigen types, and prevalence of disease. Test results must be evaluated in conjunction with other clinical data available to the physician. Individuals who received nasally administered Influenza A vaccine may havepositive test results up to 3 days after vaccination.Performed By: #### [id number] #### Reeder [facility] [address], [place] [address]EJGDV OTHER TESTSOrdered By: Abraham Barrett on 12-16-2023 Influenzae A AgNegative (12/16/23 4:13 PM)NormalNegativeCOR[facility] Man SeroInfluenzae B AgNegative 1 (12/16/23 4:13 PM)NormalNegativeCOR[facility]ST[facility] Man SeroComment on above:Interpretive Data: Test sensitivity and specificity vary for age group, specimen type, antigen types, and prevalence of disease. Test results must be evaluated in conjunction with other clinical dataavailable to the physician. Individuals who received nasally administered Influenza A vaccine may have positive test results up to 3 days after vaccination.Rapid COV Int NEG CtlPass (12/16/23 4:13 PM)NormalFT Man SeroRapid COV Int POS CtlPass (12/16/23 4:13 PM)NormalCOR[facility] Man SeroSARS-CoV+SARS-CoV-2 (COVID-19) Ag IA.rapid Ql (Resp)Not Detected 2 (12/16/23 4:13 PM)NormalNot DetectedCORNERSTONE SPECIAL[facility] Man SeroComment on above:Interpretive Data: The [employer] System for Rapid Detection of SARS-CoV-2 is a chromatographic digital immunoassay intended for the direct and qualitative detection of SARS-CoV-2 nucleocapsid antigens in nasal swabs from individuals who are suspected of COVID-19 by their healthcare provider withinthe first five days of the onset of symptoms. Negative results should be treated as presumptive, do not rule out SARS-CoV-2 infection and should not be used as the sole basis for treatment or patient management decisions, including infection control decisions. Negative results should be considered in the context of a patient s recent exposures, history and the presence of clinical signs and symptoms consistent with COVID-19, and confirmed with a molecular assay, if necessary, for patient management. For in vitro diagnostic use. In the [place], only for use under an Emergency Use Authorization. In the [place], this test has not been FDA cleared or approved; this test has been authorized by FDA under an EUA for use by authorized laboratories; use by laboratories certified under the CLIA, 42 U.S.C. 263a, that meet requirements to perform moderate, high, or waived complexity tests and at the Point of Care (POC), i.e., in patient care settings operating under a CLIA Certificate of Waiver, Certificate of Compliance, or Certificate of Accreditation. This test has been authorized only for the detection of proteins from SARS-CoV-2, not for any otherviruses or pathogens; and, in the [facility], this test is only authorized for the duration of the declaration that circumstances exist justifying the authorization of emergency use of in vitro diagnostics for detection and/or diagnosis of the virus that causes COVID-19 under Section 564(b)(1) of the Act,21 U.S.C. 360bbb-3(b)(1), unless the authorization is terminated or revoked sooner.Rapid COVID Antigen (MC)on 02-51-2772Toozt COV Int NEG CtlPassNormMercy HospitalComment on above:Performed By: #### [id number] #### [facility] [address], [place] [address]Jhhys COV Int POS CtlPassNormMercy Hospital Comment on above:Performed By: #### [id number] #### [facility] [address], [place] [address]NYDO-KzS+SARS-CoV-2 (COVID-19) Ag IA.rapid Ql (Resp)Not detectedNormalNot DetectedTrihealth Bethesda North HospitalComment on above:Result Comment: The [employer]? System for Rapid Detection of SARS-CoV-2 is a chromatographic digital immunoassay intended for the direct and qualitative detection of SARS-CoV-2 nucleocapsid antigensin nasal swabs from individuals who are suspected of COVID-19 by their healthcare provider within the first five days of the onset of symptoms. Negative results should be treated as presumptive, do not rule out SARS-CoV-2 infection and should not be used as the sole basis for treatment or patient management decisions, including infection control decisions. Negative results should be considered in the context of a patient?s recent exposures, history and the presence of clinical signs and symptoms consistent with COVID-19, and confirmed with a molecular assay, if necessary, for patient management. For in vitro diagnostic use. In the [place], only for use under an Emergency Use Authorization. In the [place], this test has not been FDA cleared or approved; this test has been authorized by FDA under an EUA for use by authorized laboratories; use by laboratories certified under the CLIA, 42 U.S.C. ?263a, that meet requirements to perform moderate, high, or waived complexity tests and at the Point of Care (POC), i.e., in patient care settings operating under a CLIA Certificate of Waiver, Certificate of Compliance, or Certificate of Accreditation. This test has been authorized only for the detection of proteins from SARS-CoV-2, not for any otherviruses or pathogens; and, in the [place], this test is only authorized for the duration of the declaration that circumstances exist justifying the authorization of emergency use of in vitro diagnostics for detection and/or diagnosis of the virus that causes COVID-19 under Section 564(b)(1) of the Act,21 U.S.C. ? 360bbb-3(b)(1), unless the authorization is terminated or revoked sooner.Performed By: #### [id number] #### Varinder [facility] [address] [place] [address] 86440VU OB GROWTHon 09-87-2753UphJonesborough[place] [address] Ultrasound Report Signed Patient: RHINA PEDRO MR#: [id number] : 2000 Acct:[id number] Age/Sex: 23 / F ADM Date: 07/04/23 Loc: [facility] Attending Dr: Adrian Harrison D.O. Ordering Physician: Adrian Harrison D.O. Date of Service: 07/04/23 Procedure(s): OB growth Accession Number(s): [id number] cc: Adrian Harrison D.O.; ROSITA CASAS [address] [address] Patient Name: RHINA PEDRO MRN: [id number]:[id number] date: 2000 Sex: F Assigned Patient Location: [facility] Current Patient Location: [facility] Accession/Order Number: [id number] Exam Date: 07/04/2023 13:58 Report Date: 07/04/2023 15:00 At the request of: ADRIAN HARRISON Procedure: US OB growth EXAMINATION: US OB growth HISTORY: SIZE INCONSISTENT WITH DATES COMPARISON: 04/04/2023 FINDINGS: Heart Rate: 141.0 bpm Amniotic Fluid Volume: 10.8 cm Number: 1.0 Position: Cephalic presentation, longitudinal lie Maximum Vertical Pocket: 2.3 cm cm 2.9 cm cm 3.1 cm cm 2.5 cm cm BIOMETRY: BPD: 7.9 cm cm; 31 weeks 6 days; 4% HC: 30.9 cmcm; 34 weeks 3 days , 25% AC: 30.3 cm cm; 34 weeks 2 days, 62% FL: 6.4 cm cm; 32 weeks 6 days; 13.8 % % EFW: 2242.4 grams, 4 lbs. 15 oz., 33% FL/AC: 21.0 FL/BPD: 80.2 HC/AC: 1.0 GESTATIONAL AGE: Age by EDC: 34 weeks 0 days AYAH by EDC: 08/15/2023 Age by US: 33 weeks 0 days AYAH by US: 08/22/2023 US/US OB growth IMPRESSION: BPD 4th percentile, otherwise normal interval growth Electronically authenticated by: PARTH PEDRO Date: 07/04/2023 15:00 Dictated By: Parth Pedro M.D. Signed By: 07/04/23 1502 DD/ 1500 TD/TT: Information Lead:TBHRadiology, Radiologist, - 07/04/2023 [place] [address] Ultrasound Report Signed Patient: RHINA PEDRO MR#: [id number] : 2000 Acct:[id number] Age/Sex: 23 / F ADM Date: 07/04/23 Loc: [facility] Attending Dr: Adrian Harrison D.O. Ordering Physician: Adrian Harrison D.O. Date of Service: 07/04/23 Procedure(s): US OB growth Accession Number(s): [id number] cc: Adrian Harrison D.O.; ROSITA CASAS [place] [id number] Patient Name: RHINA PEDRO MRN: [facility]:[id number] date: 2000 Sex: F Assigned Patient Location: [facility] Current Patient Location: [facility] Accession/Order Number: [id number] Exam Date: 07/04/2023 13:58 Report Date: 07/04/2023 15:00 At the request of: ADRIAN HARRISON Procedure: US OB growth EXAMINATION: US OB growth HISTORY: SIZE INCONSISTENT WITH DATES COMPARISON: 04/04/2023 FINDINGS: Heart Rate: 141.0 bpm Amniotic Fluid Volume: 10.8 cm Number: 1.0 Position: Cephalic presentation, longitudinal lie Maximum Vertical Pocket: 2.3 cm cm 2.9 cm cm 3.1 cm cm 2.5 cm cm BIOMETRY: BPD: 7.9 cm cm; 31 weeks 6 days; 4% HC: 30.9 cmcm; 34 weeks 3 days , 25% AC: 30.3 cm cm; 34 weeks 2 days, 62% FL: 6.4 cm cm; 32 weeks 6 days; 13.8 % % EFW: 2242.4 grams, 4 lbs. 15 oz., 33% FL/AC: 21.0 FL/BPD: 80.2 HC/AC: 1.0 GESTATIONAL AGE: Age by EDC: 34 weeks 0 days AYAH by EDC: 08/15/2023 Age by US: 33 weeks 0 days AYAH by US: 08/22/2023 US/US OB growth IMPRESSION: BPD 4th percentile, otherwise normal interval growth Electronically authenticated by: PARTH PEDRO Date: 07/04/2023 15:00 Dictated By: Parth Pedro M.D. Signed By: 07/04/23 1502 DD/ 1500 TD/TT: Information Lead: LANA HealthcareRadiology Study observation (narrative)LANA DumontUS OB GROWTHOrdered By: Radiologist Radiology on [id number] Work Phone: no Panel InformationOrdered By: Radiologist Radiology on 06-59-7503ZWKZ Healthcare Work Phone: no Panel Informationon 42-24-6839Latgebctw Study observation (narrative)NOMSergio HealthcareUS OB PLACENTAon 11-88-9638[place]nJones[place] [address] Ultrasound Report Signed Patient: RHINA PEDRO MR#: [id number] : 2000 Acct:[id number] Age/Sex: 23 / F ADM Date: 05/24/23 Loc: [facility] Attending Dr: Adrian Harrison D.O. Ordering Physician: Adrian Harrison D.O. Date of Service: 05/24/23 Procedure(s): US OB placenta Accession Number(s): [id number] cc: Adrian Harrison D.O.; ROSITA CASAS [place] [address] Patient Name: RHINA PEDRO MRN: TBH:[id number] date: 2000 Sex: F Assigned Patient Location: [facility] Current Patient Location: [facility] Accession/Order Number: [id number] Exam Date: 05/24/2023 13:00 Report Date: 05/24/2023 13:59 At the request of: ADRIAN HARRISON Procedure: US OB placenta EXAMINATION: US OB placenta, US OB transvaginal HISTORY: Low-lying placenta O44.40 COMPARISON: No relevant comparison available. FINDINGS: PLACENTA: Posterior, grade 0, with lower margin 4.0 cm from os. CERVIX LENGTH: 5.3 cm; closed. HEART RATE: 142 bpm OTHER: None. US/US OB placenta IMPRESSION: 1. Single live intrauterine . 2. Posterior placenta which is no longer low-lying. Electronically authenticated by: CABRERA SINGLETON Date: 05/24/2023 13:59 Dictated By: Cabrera Singleton M.D. Signed By: 05/24/23 1409 DD/ 135 TD/TT: Information Lead:HARRIETadioltayo, Radiologist, - 05/24/2023 [place] [address] Ultrasound Report Signed Patient: RHINA PEDRO MR#: [id number] : 2000 Acct:[id number] Age/Sex: 23 / F ADM Date: 05/24/23 Loc: [facility] Attending Dr: Adrian Harrison D.O. Ordering Physician: Adrian Harrison D.O. Date of Service: 05/24/23 Procedure(s): US OB placenta Accession Number(s): [id number] cc: Adrian Harrison D.O.; ROSITA CASAS [place] [id number] Patient Name: RHINA PEDRO MRN: [id number]:[id number] date: 2000 Sex: F Assigned Patient Location: [facility] Current Patient Location: [facility] Accession/Order Number: [id number] Exam Date: 05/24/2023 13:00 Report Date: 05/24/2023 13:59 At the request of: ADRIAN HARRISON Procedure: US OB placenta EXAMINATION: US OB placenta, US OB transvaginal HISTORY: Low-lying placenta O44.40 COMPARISON: No relevant comparison available. FINDINGS: PLACENTA: Posterior, grade 0, with lower margin 4.0 cm from os. CERVIX LENGTH: 5.3 cm; closed. HEART RATE: 142 bpm OTHER: None. US/US OB placenta IMPRESSION: 1. Single live intrauterine . 2. Posterior placenta which is no longer low-lying. Electronically authenticated by: CABRERA SINGLETON Date: 05/24/2023 13:59 Dictated By: Cabrera Singleton M.D. Signed By: 05/24/23 1402 DD/ 1359 TD/TT: Information Lead: LANA Littlejohn OB TRANSVAGINALon 05-68-5908[place]wdJones[place] [address] Ultrasound Report Signed Patient: RHINA PEDRO MR#: [id number] : 2000 Acct:[id number] Age/Sex: 23 / F ADM Date: 05/24/23 Loc: [facility] Attending Dr: Adrian Harrison D.O. Ordering Physician: Adrian Harrison D.O. Date of Service: 05/24/23 Procedure(s): US OB transvaginal Accession Number(s): [id number] cc: Adrian Harrison D.O.; ROSITA CASAS [place] [phone] Patient Name: RHINA PEDRO MRN: [id number] date: 2000 Sex: F Assigned Patient Location: [facility] Current Patient Location: [facility] Accession/Order Number: [id number] Exam Date: 05/24/2023 13:00 Report Date: 05/24/2023 13:59 At the request of: ADRIAN HARRISON Procedure: US OB transvaginal EXAMINATION: US OB placenta, US OB transvaginal HISTORY: Low-lying placenta O44.40 COMPARISON: No relevant comparison available. FINDINGS: PLACENTA: Posterior, grade 0, with lower margin 4.0 cm from os. CERVIX LENGTH: 5.3 cm; closed. HEART RATE: 142 bpm OTHER: None. US/US OB transvaginal IMPRESSION: 1. Single live intrauterine . 2. Posterior placenta which is no longer low-lying. Electronically authenticated by: CABRERA SINGLETON Date: 05/24/2023 13:59 Dictated By: Cabrera Singleton M.D. Signed By: 05/24/23 1402 DD/ 1359 TD/TT: Information Lead:YESIKAHRadiology, Radiologist, - 05/24/2023 [place] [address] Ultrasound Report Signed Patient: RHINA PEDRO MR#: [id number] : 2000 Acct:[id number] Age/Sex: 23 / F ADM Date: 05/24/23 Loc: [facility] Attending Dr: Adrian Harrison D.O. Ordering Physician: Adrian Harrison D.O. Date of Service: 05/24/23 Procedure(s): US OB transvaginal Accession Number(s): [id number] cc: Adrian Harrison D.O.; ROSITA CASAS [place] [address] Patient Name: RHINA PEDRO MRN: [facility]:[id number] date: 2000 Sex: F Assigned Patient Location: [facility] Current Patient Location: [facility] Accession/Order Number: [id number] Exam Date: 05/24/2023 13:00 Report Date: 05/24/2023 13:59 At the request of: ADRIAN HARRISON Procedure: US OB transvaginal EXAMINATION: US OB placenta, US OB transvaginal HISTORY: Low-lying placenta O44.40 COMPARISON: No relevant comparison available. FINDINGS: PLACENTA: Posterior, grade 0, with lower margin 4.0 cm from os. CERVIX LENGTH: 5.3 cm; closed. HEART RATE: 142 bpm OTHER: None. US/US OB transvaginal IMPRESSION: 1. Single live intrauterine . 2. Posterior placenta which is no longer low-lying. Electronically authenticated by: CABRERA SINGLETON Date: 05/24/2023 13:59 Dictated By: Cabrera Singleton M.D. Signed By: 05/24/23 1402 DD/ 1359 TD/TT: Information Lead: LANA [facility] HospitalQuantiferon-TB Plus (Client Incubated)on 87-11-9877Thkuy interferon background IA Qn (Bld)0.00 International_Unit/mLInvalid Interpretation [facility] HospitalComment on above:Performed By: #### [id number], [id number], [id number], [id number] #### Varinder [facility] [address] tuberculosis stim IFN-g by CD4+ CD8+ T-cells corrected for background Qn (Bld)0.01 International_Unit/mLInvalid Interpretation [facility] HospitalComment on above:Performed By: #### [id number], [id number], [id number], [id number] #### Varinder [facility] [address] tuberculosis stim IFN-g by CD4+ T-cells corrected for background Qn (Bld)0.01 International_Unit/mLInvalid Interpretation [facility] HospitalComment on above:Performed By: #### [id number], [id number], [id number], [id number] #### Reeder [facility] [address] [place], [place] [address]J. tuberculosis stim IFN-g Ql (Bld) [Interp]NegativeInvalid Interpretation CodeNegativeTrihealth Bethesda North HospitalComment on above:Result Comment: No response to M tuberculosis antigens detected. Infection with [...] interferon gamma. Chemiluminescence immunoassay methodology Performed at: [facility] [id number] PhD Nathaniel Adkinsformed By: #### [id number], [id number], [id number], [id number] #### Reeder [facility] [address] [place] [address]Zaqlnxr stimulated gamma interferon corrected for background Qn (Bld)>10.00Invalid Interpretation [facility] HospitalComment on above:Performed By: #### [id number], [id number], [id number], 7499760 #### [facility] [address] [place], [place] [address]Hcgjnfe comment (Unsp spec) [Interp]CommentInvalid Interpretation [facility] HospitalComment on above:Result Comment: QuantiFERON-TB Gold Plus is a qualitative indirect test for M tuberculosis infection (including disease) and is intended for use in conjunction with risk assessment, radiography, and other medical and diagnostic evaluations. The QuantiFERON-TB Gold Plus result is determined by subtracting the Nil value from either TB antigen (Ag) value. The Mitogen tube serves as a control for the test.Performed By: #### [id number], [id number], [id number], [id number] #### Varinder [facility] [address] [place] [address]Dax Bs Abon 73-25-0053FOB surface Ab Ql (S)Non-ReactiveInvalid Interpretation CodeFishUniversity of Maryland Rehabilitation & Orthopaedic InstituteComment on above:Result Comment: Non Reactive: Inconsistent with immunity, less than 10 mIU/mL Reactive: Consistent with immunity, greater than 9.9 mIU/mL Performed at: [address] [id number] PhD Nathaniel BoonePerformed By: #### 77258074, [id number], [id number], [id number] #### Reeder [facility] [address] [place] [address]Qbqukud/Mumps/Rubella Immunityon 17-53-1177IoZ IgG IA Qn (S) 117.0 A unit/mLInvalid Interpretation CodeImmune >16.4FSumma HealthComment on above:Result Comment: Negative <13.5 Equivocal 13.5 - 16.4 Positive >16.4 Presence of antibodies to Rubeola is presumptive evidence of immunity except when acute infection is suspected.Performed By: #### [id number], [id number], [id number], [id number] #### Reeder [facility] [address] [place] [address]PpW IgG IA Qn (S)31.7 A unit/mLInvalid Interpretation Code Immune >10.9Tri[facility]hes[facility] North HospitalComment on above:Result Comment: Negative <9.0 Equivocal 9.0 - 10.9 Positive >10.9 A positive result generally indicates past exposure to Mumps virus or previous vaccination. Performed at: [facility] [address] [place] [id number] PhD Nathaniel BoonePerformed By: #### [id number], [id number], [id number], [id number] #### Reeder [facility] [address] [place] [address]90[address]Vgkearg virus IgG Qn (S)2.07 [IU]/mLInvalid Interpretation Code Immune >0.99[facility] HospitalComment on above:Result Comment: Non- immune <0.90 Equivocal 0.90 - 0.99 Immune >0.99Performed By: #### [id number], [id number], [id number], [id number] #### Varinder [facility] [address] [place], [place] [address]Fpodq IgGon 90-36-1020KXS IgG IA Qn (S)180Invalid Interpretation CodeImmune >165[facility] HospitalComment on above:Result Comment: Negative <135 Equivocal 135 - 165 Positive >165 A positive result generally indicates exposure to the pathogen or administration of specific immunoglobulins, but it is not indication of active infection or stage of disease. Performed at: [facility] [id number] PhD Nathaniel BoonePerformed By: #### [id number], [id number], [id number], [id number] #### Varinder [facility] [address] [place], [place] [address]ZGP CBC WITH AUTO DIFFon 75-25-5825WRTSOXVGP ABSOLUTE AUTO0.0 [facility] HealthcareBasophils/100 WBC (Bld)0.3 %0.2 - 2.0 %[facility] Eosinophils/100 WBC (Bld)0.9 %0.9 - 7.0 %[facility] HealthcareErythrocyte distribution width (RBC) [Ratio]12.3 %11.0 - 15.0 %[facility] HealthcareHematocrit (Bld) [Volume fraction]35.3 %Low36.0 - 48.0 %[facility] HealthcareHemoglobin (Bld) [Mass/Vol]11.7 g/dLLow12.0 - 16.0 g/dLNOMS HealthcareIMMATURE GRANULOCYTES ABS AUTO0.18HighNOMS HealthcareImmature granulocytes/100 WBC (Bld)1.8 %High0.0 - 0.5 %[facility] HealthcareInterpretation and review of laboratory resultsAbnormalNOMS Healthcare LYMPHOCYTES ABSOLUTE AUTO1.4[facility] HealthcareLymphocytes/100 WBC (Bld)14.1 %Low 20.5 - 60.0 %[facility]HealthH (RBC) [Entitic mass]31.7 pg26.7 - 34.0 pgCoxHealthHC (RBC) [Mass/Vol]33.1 g/dL29.9 - 35.2 g/dLCoxHealthV (RBC) [Entitic vol]95.7 fL81.0 - 99.0 fLUNIV[facility]ITY OF [facility]ITAL HealthcareMONOCYTES ABSOLUTE AUTO0.4NOPR HealthcareMonocytes/100 WBC (Bld)4.0 %1.7 - 12.0 %[facility] HealthcareNEUTROPHILS ABSOLUTE AUTO8.1HighNOPR HealthcareNeutrophils/100 WBC (Bld)78.9 %High43.0 - 75.0 %[facility] HospitalPlatelet mean volume (Bld) [Entitic vol]9.4 fLLow9.5 - 13.5 fLSaint John's Saint Francis HospitalTB EO #0.1NOMS HealthcareTB KCE432TGIC [facility] RBC3.69 LowNOMineral Area Regional Medical Center WBC10.2NOMS HealthcareCLINISYNCNOMS HealthcareNo Panel InformationOrdered By: Radiologist Radiology on 16-40-6531DIXESaint [facility]'s Saint [facility] Hospital Work Phone: No Panel Informationon 58-36-9532Nxkjhtkuh Study observation (narrative)[facility] OB ANATOMYon 56-66-[address] [address] Ultrasound Report Signed Patient: RHINA PEDRO MR#: [id number] : 2000 Acct:[id number] Age/Sex: 22 / F ADM Date: 04/04/23 Loc: US Attending Dr: Adrian Harrison D.O. Ordering Physician: Adrian Harrison D.O. Date of Service: 04/04/23 Procedure(s): US OB anatomy Accession Number(s): [id number] cc: Adrian Harrison D.O.; ROSITA CASAS [address] [address] Patient Name: RHINA PEDRO MRN: [id number] date: 2000 Sex: F Assigned Patient Location: US Current Patient Location: US Accession/Order Number: [id number] Exam Date: 04/04/2023 14:08 Report Date: 04/04/2023 15:14 At the request of: ADRIAN HUNTER Procedure: US OB anatomy EXAMINATION: US OB anatomy, US OB cervical length HISTORY: Anatomy scan Z36.98 COMPARISON: No relevant comparison available. TECHNIQUE: Transabdominal sonographic examination was performed for obstetrical and evaluation. FINDINGS: Number: 1 Heart Rate: 152.5 bpm H.B. /min Amniotic Fluid Volume: Subjectively normal position: Cephalic presentation, longitudinal lie Placental Location: Posterior. The placental edge is 1.3 cm from the internal os. Grade 0 Cervix Length: 6.2 cm , closed Normally anatomy: Lateral ventricles, cerebellum, posterior fossa, nose, lips, orbits, four-chamber heart, RVOT, LVOT, diaphragm, stomach, kidneys, abdominal cord insertion, bladder, umbilical arteries, three-vessel cord, spine, extremities BIOMETRY: BPD: 5.0 cm 21 weeks 2 days , 61% HC: 19.4 cm 21 weeks 4 days, 67% AC: 15.6 cm 20 weeks 5 days, 36% FL: 3.2 cm 20 weeks 0 days, 13% EFW:362.6 grams; 13 ounces, 24% FL/AC: 20.6 FL/BPD: 63.7 HC/AC: 1.2 GESTATIONAL AGE: Age by EDC: 21 weeks 0 days Age by current US: 20 weeks 6 days AYAH by current US: 08/16/2023 AYAH by EDC: 08/15/2023 US/US OB anatomy IMPRESSION: Normal anatomy scan Closed cervix measuring 6.2 cm in length *Reference: [employer] Practice Guideline for the performance of Obstetric Ultrasound Examinations, December 11, 2006. Electronically authenticated by: PARTH PEDRO Date: 04/04/2023 15:14 Dictated By: Parth Pedro M.D. Signed By: 04/04/23 1517 DD/ 13 TD/TT: Information Lead:TBHRadiology, Radiologist, - 04/04/2023 [place] [address] Ultrasound Report Signed Patient: RHINA PEDRO MR#: [id number] : 2000 Acct:[id number] Age/Sex: 22 / F ADM Date: 04/04/23 Loc: US Attending Dr: Adrian Harrison D.O. Ordering Physician: Adrian Harrison D.O. Date of Service: 04/04/23 Procedure(s): US OB anatomy Accession Number(s): [id number] cc: Adrian Harrison D.O.; ROSITA CASAS [place] [address] Patient Name: RHINA PEDRO MRN: [id number] date: 2000 Sex: F Assigned Patient Location: US Current Patient Location: US Accession/Order Number: [id number] Exam Date: 04/04/2023 14:08 Report Date: 04/04/2023 15:14 At the request of: ADRIAN HARRISON Procedure: US OB anatomy EXAMINATION: US OB anatomy, US OB cervical length HISTORY: Anatomy scan Z36.98 COMPARISON: No relevant comparison available. TECHNIQUE: Transabdominal sonographic examination was performed for obstetrical and evaluation. FINDINGS: Number: 1 Heart Rate: 152.5 bpm H.B. /min Amniotic Fluid Volume: Subjectively normal position: Cephalic presentation, longitudinal lie Placental Location: Posterior. The placental edge is 1.3 cm from the internal os. Grade 0 Cervix Length: 6.2 cm , closed Normally anatomy: Lateral ventricles, cerebellum, posterior fossa, nose, lips, orbits, four-chamber heart, RVOT, LVOT, diaphragm, stomach, kidneys, abdominal cord insertion, bladder, umbilical arteries, three-vessel cord, spine, extremities BIOMETRY: BPD: 5.0 cm 21 weeks 2 days , 61% HC: 19.4 cm 21 weeks 4 days, 67% AC: 15.6 cm 20 weeks 5 days, 36% FL: 3.2 cm 20 weeks 0 days, 13% EFW:362.6 grams; 13 ounces, 24% FL/AC: 20.6 FL/BPD: 63.7 HC/AC: 1.2 GESTATIONAL AGE: Age by EDC: 21 weeks 0 days Age by current US: 20 weeks 6 days AYAH by current US: 08/16/2023 AYAH by EDC: 08/15/2023 US/US OB anatomy IMPRESSION: Normal anatomy scan Closed cervix measuring 6.2 cm in length *Reference: [employer] Practice Guideline for the performance of Obstetric Ultrasound Examinations, December 11, 2006. Electronically authenticated by: PARTH PEDRO Date: 04/04/2023 15:14 Dictated By: Parth Pedro M.D. Signed By: 04/04/23 1517 DD/ 13 TD/TT: Information Lead: LANA Littlejohn OB CERVICAL LENGTHon 86-35-4973MpgJones[place] [address] Ultrasound Report Signed Patient: RHINA PEDRO MR#: [id number] : 2000 Acct:[id number] Age/Sex: 22 / F ADM Date: 04/04/23 Loc: US Attending Dr: Adrian Harrison D.O. Ordering Physician: Adrian Harrison D.O. Date of Service: 04/04/23 Procedure(s): US OB cervical length Accession Number(s): [id number] cc: Adrian Harrison D.O.; ROSITA CASAS [place] [id number] Patient Name: RHINA PEDRO MRN: [id number] date: 2000 Sex: F Assigned Patient Location: US Current Patient Location: US Accession/Order Number: [id number] Exam Date: 04/04/2023 14:08 Report Date: 04/04/2023 15:14 At the request of: ADRIAN HARRISON Procedure: US OB cervical length EXAMINATION: US OB anatomy, US OB cervical length HISTORY: Anatomy scan Z36.98 COMPARISON: No relevant comparison available. TECHNIQUE: Transabdominal sonographic examination was performed for obstetrical and evaluation. FINDINGS: Number: 1 Heart Rate: 152.5 bpm H.B. /min Amniotic Fluid Volume: Subjectively normal position: Cephalic presentation, longitudinal lie Placental Location: Posterior. The placental edge is 1.3 cm from the internal os. Grade 0 Cervix Length: 6.2 cm , closed Normally anatomy: Lateral ventricles, cerebellum, posterior fossa, nose, lips, orbits, four-chamber heart, RVOT, LVOT, diaphragm, stomach, kidneys, abdominal cord insertion, bladder, umbilical arteries, three-vessel cord, spine, extremities BIOMETRY: BPD: 5.0 cm 21 weeks 2 days , 61% HC: 19.4 cm 21 weeks 4 days, 67% AC: 15.6 cm 20 weeks 5 days, 36% FL: 3.2 cm 20 weeks 0 days, 13% EFW:362.6 grams; 13 ounces, 24% FL/AC: 20.6 FL/BPD: 63.7 HC/AC: 1.2 GESTATIONAL AGE: Age by EDC: 21 weeks 0 days Age by current US: 20 weeks 6 days AYAH by current US: 08/16/2023 AYAH by EDC: 08/15/2023 US/US OB cervical length IMPRESSION: Normal anatomy scan Closed cervix measuring 6.2 cm in length *Reference: [employer] Practice Guideline for the performance of Obstetric Ultrasound Examinations, December 11, 2006. Electronically authenticated by: PARTH PEDRO Date: 04/04/2023 15:14 Dictated By: Parth Pedro M.D. Signed By: 04/04/23 1517 DD/ 13 TD/TT: Information Lead:TBHRadiology, Radiologist, - 04/04/2023 [place] [address] Ultrasound Report Signed Patient: RHINA PEDRO MR#: [id number] : 2000 Acct:[id number] Age/Sex: 22 / F ADM Date: 04/04/23 Loc: US Attending Dr: Adrian Harrison D.O. Ordering Physician: Adrian Harrison D.O. Date of Service: 04/04/23 Procedure(s): US OB cervical length Accession Number(s): [id number] cc: Adrian Harrison D.O.; ROSITA CASAS [address] [address] Patient Name: RHINA PEDRO MRN: [facility]:[id number] date: 2000 Sex: F Assigned Patient Location: US Current Patient Location: US Accession/Order Number: [id number] Exam Date: 04/04/2023 14:08 Report Date: 04/04/2023 15:14 At the request of: ADRIAN HARRISON Procedure: US OB cervical length EXAMINATION: US OB anatomy, US OB cervical length HISTORY: Anatomy scan Z36.98 COMPARISON: No relevant comparison available. TECHNIQUE: Transabdominal sonographic examination was performed for obstetrical and evaluation. FINDINGS: Number: 1 Heart Rate: 152.5 bpm H.B. /min Amniotic Fluid Volume: Subjectively normal position: Cephalic presentation, longitudinal lie Placental Location: Posterior. The placental edge is 1.3 cm from the internal os. Grade 0 Cervix Length: 6.2 cm , closed Normally anatomy: Lateral ventricles, cerebellum, posterior fossa, nose, lips, orbits, four-chamber heart, RVOT, LVOT, diaphragm, stomach, kidneys, abdominal cord insertion, bladder, umbilical arteries, three-vessel cord, spine, extremities BIOMETRY: BPD: 5.0 cm 21 weeks 2 days , 61% HC: 19.4 cm 21 weeks 4 days, 67% AC: 15.6 cm 20 weeks 5 days, 36% FL: 3.2 cm 20 weeks 0 days, 13% EFW:362.6 grams; 13 ounces, 24% FL/AC: 20.6 FL/BPD: 63.7 HC/AC: 1.2 GESTATIONAL AGE: Age by EDC: 21 weeks 0 days Age by current US: 20 weeks 6 days AYAH by current US: 08/16/2023 AYAH by EDC: 08/15/2023 US/US OB cervical length IMPRESSION: Normal anatomy scan Closed cervix measuring 6.2 cm in length *Reference: [facility] Practice Guideline for the performance of Obstetric Ultrasound Examinations, December 11, 2006. Electronically authenticated by: PARTH PEDRO Date: 04/04/2023 15:14 Dictated By: Parth Pedro M.D. Signed By: 04/04/23 1517 DD/ 13 TD/TT: Information Lead: LANA HealthcareBLOOD BANKOrdered By: Hollie Zavala on 44-69-7035KJL/Rh Interp PositiveInvalid Interpretation CodeFT BB SubsectionABSC Gel InterpNegative (01/06/23 3:05 PM)NormalFT BB SubsectionCHEMISTRYOrdered By: Maryann Brooke on 29-44-6779FjT3j (Bld) [Mass fraction]5.0 %Normal<=5.9%[facility] ChemAutoSSCHEMISTRY Ordered By: SYSTEM SYSTEM on 91-20-8966RGB Qn1.74 m[IU]/LNormal0.34 - 5.60 mcIU/mLFTMC RemisolHEMATOLOGYOrdered By: Hollie Zavala on 98-73-7882Zscdjmcqlml distribution width (RBC) [Ratio]12.8 %Ftvtya78.9 - 14.2 %[facility] HemeAutoSS Hematocrit (Bld) [Volume fraction]40.8 %Pohrqe45.0 - 46.0 %[facility] HemeAutoSS Hemoglobin (Bld) [Mass/Vol]13.8 g/gVKbazny08.0 - 16.0 gm/dLFTMC HemeAutoSSMCH (RBC) [Entitic mass]31.6 svYizler82.0 - 34.0 pgFTMC HemeAutoSSMCHC (RBC) [Mass/Vol]33.7 g/bKZqchea16.4 - 36.0 gm/dLFTMC HemeAutoSSMCV (RBC) [Entitic vol] 93.7 uZJedjqu34.0 - 100.0 fLFTMC HemeAutoSSPlatelet mean volume (Bld) [Entitic vol]8.1 fLNormal6.4 - 10.8 fLFTMC HemeAutoSSPlatelets (Bld) [#/Vol]345.0 E9/L Mfwyaz933.0 - 500.0 E9/LFTMC HemeAutoSSRBC (Bld) [#/Vol]4.4 E12/LNormal4.3 - 5.9 E12/LFTMC HemeAutoSSWBC corrected for nucl RBC Auto (Bld) [#/Vol]9.8 E9/LNormal 4.0 - 11.0 E9/LFTMC HemeAutoSS Vital Signs Date TimeVital SignValuePerforming AuoxjnxdbOuwkkhho63-06-5954 10:48-0400Body ntuerq821.6 cmRosita Casas MD Work Phone: [phone] [address]-12-2025 10:48-0400Body mass index (BMI) [Ratio]24.68 kg/q7VuagkRosita Casas MD Work Phone: [phone] [place] [address]-12-2025 10:48-0400Body temperature 98.4 [degF]Rosita Casas MD Work Phone: [phone] [place] [address]-12-2025 10:48-0400Body rjoxgs03.23 kgRosita Casas MD Work Phone: [phone] [place] [address]-12-2025 10:48-0400Diastolic blood orrcpuva98 mm[Hg]Rosita Casas MD Work Phone: [phone] [place] [address]-12-2025 10:48-0400Heart rate78 /min Rosita Casas MD Work Phone: [phone] [place] [address]-12-2025 10:48-8856BgD4% (BldA) [Mass fraction]98 %Rosita Casas MD Work Phone: [phone] [place], [place] 4146408-12-2025 10:48-0400Systolic blood pwcxmwom185 mm[Hg]Rosita Casas MD Work Phone: [phone] [place], [place] 4146410-10-2024 10:05-0400Body qmyocm818.6 cmRosita Casas MD Work Phone: [phone] [place], [place] 4146410-10-2024 10:05-0400Body mass index (BMI) [Ratio]24.48 kg/j4UvuskRosita Casas MD Work Phone: [phone] [place], [place] 4146410-10-2024 10:05-0400Body temperature 98.2 [degF]Rosita Casas MD Work Phone: [phone] [place] [address]-10-2024 10:05-0400Body fzgukp76.68 kgRosita Casas MD Work Phone: [phone] [place] [address]-10-2024 10:05-0400Diastolic blood mm[Hg]Rosita Casas MD Work Phone: [facility] HospitalNarjskgcak79-23-8311 10:05-0400Heart rate72 /min Rosita Casas MD Work Phone: [facility] HospitalIqjrophets91-44-1379 10:05-4826EqO6% (BldA) [Mass fraction]98 %Rosita Casas MD Work Phone: [facility] HospitalOcydydubey58-94-6484 10:05-0400Systolic blood bukbezab974 mm[Hg]Rosita Casas MD Work Phone: [facility] HospitalWszdeeqhhe23-30-9515 15:51-0400Body temperature 97.7 [degF]Misha Berger [address]10-05-2024 15:51-0400 Diastolic blood ffkefsyv30 mm[Hg]Misha Berger [address]10-05-2024 15:51-0400Heart rate86 /minMisha Berger [address]10-05-2024 15:51-0400 Respiratory rate18 /minMisha Berger [address] [place], [place] 6383010-05-2024 15:51-3518ZbR3% (BldA) [Mass fraction]99 %Misha Berger [address] [place], [place] 6872410-05-2024 15:51-0400 Systolic blood xvsgssge215 mm[Hg]Misha Berger [address] [place] [address] Encounters Encounter DateEncounter TypeCare ProviderFacilityStart: 82-40-6264rbnikdipeccecilio SWIFTFacility:FTMCStart: 10-22-2024 End: 62-00-1613Wqvxqgsima Casas MD Work Phone: [facility] MedicineStart: 10-22-2024 End: 38-56-4771Koppqabertha Casas MD Work Phone: [facility] 10-22-2024 End: 03-01-7116Skpgjoieu Result EncounterRosita Casas MD Work Phone: n[facility] External Department UnsolicitedStart: 10-22-2024 End: 55-86-0792omrxozxnbeMyhez M HartmanFacility:FTMCStart: 10-22-2024 End: 87-95-8722Nhogezh encounter statusRosita Casas MD Work Phone: [facility] Work Phone: start: 10-22-2024 End: 05-50-6995Yzukkgmz preventive med est patient 18-39 yrsRosita Casas MD Work Phone: [facility] MedicineComment on above:Immunity status testing (Primary Dx); Routine general medical examination at a health care facilityStart: 10-22-2024 End: 90-02-1171pbciegeeifIGDPSCelia Zimmerman AvailableStart: 01-01-2024 End: 25-97-7616jyltoxyzbjUbkwddm FLOURTOWNFacility:FTMCStart: 12-21-2023 End: 49-60-5849Yyiolz Eliz Casas MD Work Phone: noms NE FMStart: 12-21-2023 End: 60-11-4266Cfaxjp Eliz Casas MD Work Phone: [facility] NE FMStart: 12-21-2023 End: 52-79-2943Tpdzge outpatient visit 15 minutesRosita Casas MD Work Phone: noms NE FMComment on above:Bronchitis (Primary Dx) Start: 12-21-2023 End: 87-47-7187bxqlwzivvgXEKFF M HARTMANNot AvailableStart: 12-19-2023 End: 08-22-2831Uwqcylsuu encounterRosita Casas MD Work Phone: noms NE FMComment on above:ER Follow-upStart: 12-16-2023 End: 13-11-2097Yebqizmcr department patient visitMisha Berger [facility] Start: 07-04-2023 End: 38-10-0435Nbvairzgs Result EncounterCorey Hunter DO Work Phone: n[facility] External Department UnsolicitedStart: 07-04-2023 End: 20-40-7412Nlqdjbybj Result EncounterCorey Hunter DO Work Phone: noms External Department UnsolicitedStart: 05-24-2023 End: 41-17-6320Ikbjyoffh Result EncounterCorey Hunter DO Work Phone: noms External Department UnsolicitedStart: 05-24-2023 End: 28-82-0256Becglpfvs Result EncounterCorey Hunter DO Work Phone: noms External Department UnsolicitedStart: 05-18-2023 End: 02-56-4976swkkqcthxcUvdlrd J CromleyFacility:FTMCStart: 05-02-2023 End: 50-91-5024epvxgwatooEdgt T AMESFacility:FTMCStart: 48-36-7659Kxvpoftte Result EncounterCorey Hunter DO Work Phone: noms External Department UnsolicitedStart: 04-27-2023 Clinisync Result EncounterCorey Hunter DO Work Phone: noms External Department UnsolicitedStart: 04-04-2023 End: 85-44-3859Kplwntgff Result EncounterCorey Hunter DO Work Phone: noms External Department UnsolicitedStart: 04-04-2023 End: 95-63-7985Tziquugxw Result EncounterCorey Hunter DO Work Phone: noms External Department UnsolicitedStart: 01-06-2023 End: 96-38-4439Kutyscj encounter procedureCorey R HUNTER [facility] Start: 10-20-2022 End: 10-64-5510Ddzceyd encounter procedureRosita Casas [facility] Procedures DateProcedureProcedure DetailPerforming ClinicianStart: 52-84-0539ISWNP BRIANDA Casas MD Work Phone: start: 15-65-1694RG OB GROWTHCorey Hunter DO Work Phone: Start: 44-74-0799WP OB PLACENTACorey Hunter DO Work Phone: Start: 74-91-0351GJ OB TRANSVAGINALCorey Hunter DO Work Phone: Start: 47-30-9030WPQ CBC WITH AUTO DIFFCorey Hunter DO Work Phone: Start: 86-83-5486IK OB ANATOMYCorey Hunter DO Work Phone: Start: 26-61-8650YW OB CERVICAL LENGTHCorey Hunter DO Work Phone: Plan of Treatment DateCare ActivityDetailAuthorStart: 11-21-2024 End: 74-67-7743Fxsadeq encounter bjemrdjcc00/11/2025 10:30 AM EDT Procedure Visit LANA RAIN [address] [place], [id number] Haven Sanchez PA [address] [place] [address] NOMSergio Holloway OBGYNStart: 11-11-2024 Influenza vaccinationInfluenza Vaccine (#1)[facility] HealthcareStart: 10-22-2024 End: 42-25-4361Hlcoufkdh B virus surface Ab [Units/volume] in Serum or Plasma by ImmunoassayHepatitis B surface antibody Lab Routine Immunity status testing Expected: 10/22/2024 (Approximate), Expires: 10/22/2025[facility] Work Phone: comment on above:Expected: 10/22/2024 (Approximate), Expires: 10/22/2025Start: 10-22-2024 End: 63-83-5028CDXKLDQ/MUMPS/RUBELLA IMMUNITYMEASLES/MUMPS/RUBELLA IMMUNITY Lab Routine Immunity status testing Expected: 10/22/2024 (Approximate), Expires: 10/22/2025[facility] HealthcareComment on above:Expected: 10/22/2024 (Approximate), Expires: 10/22/2025Start: 10-22-2024 End: 96-89-0298Dpomfkply zoster antibody, IgGVaricella zoster antibody, IgG Lab Routine Immunity status testing Expected: 10/22/2024 (Approximate), Expires: 10/22/2025[facility] HealthcareComment on above:Expected: 10/22/2024 (Approximate), Expires: 10/22/2025Start: 10-22-2024 End: 28-38-9496Imkzidy encounter crjjsoqsh26/12/2025 10:40 AM EDT Office Visit [facility] [address] [place] [phone] Rosita Casas MD [address] [place] [address] ArrivedBaker Memorial HospitalComment on above:Arrived Start: 03-21-2024 End: 83-90-4380Efjuqxx encounter fbvicepim50/09/2025 10:30 AM EST Office Visit [facility] [address] [place] [phone] Adrian Harrison, [address] [place] [address] [facility] BCP OBStart: 12-21-2023 End: 29-76-1510Rrhfnez encounter sfniktrhd47/10/2024 9:40 AM EDT Office Visit [facility] [address] [place] [address] Rosita Casas MD [address] [place] [address] [facility] FMComment on above:ArrivedStart: 58-93-4507Yxzvjzqhq vaccination Influenza Vaccine (#1)[facility] HealthcareStart: 05-09-2023 End: 58-64-4136Cpqnqvh encounter ncacskjfl76/27/2024 2:40 PM EST Routine [facility] [address] [place] [phone] Haven Sanchez PA [address] [place] [address] NOMS BCP OBStart: 96-92-2356Qwqgirneq vaccinationInfluenza Vaccine (#1)[facility] Healthcare Immunizations Immunization DateImmunizationNotesCare MduqcnevRupxgmbb70-41-0547oyhwmomcx, seasonal, injectable, preservative freeRosita Casas MD Work Phone: [facility] HospitalMcxifduohf83-27-8454kruvpgctc virus vaccine, unspecified formulationRosita Casas MD Work Phone: [facility] HospitalFgmnsvyrfr23-93-1914wxwtmrzzl, seasonal, injectableJohn Celine [facility]03-07-2024influenza virus vaccine, unspecified formulationRosita Casas MD Work Phone: [facility] HospitalBvudjgdcen87-01-2906vqbbfesag A vaccine, pediatric/adolescent dosage, 2 dose scheduleCorey Hunter DO Work Phone: [facility] HospitalZyvstbvqtj92-56-8177vqlofyjewcrdw B vaccine, recombinant, OMV, adjuvantedCorey Hunter DO Work Phone: [facility] HospitalKvosglnoxf94-94-1252foddcmhkjrchv B vaccine, recombinant, OMV, adjuvantedCorey Hunter DO Work Phone: [facility] HospitalArvjuwlirv10-19-3763rxhkmdzpkdpdh oligosaccharide (groups A, C, Y and W-135) diphtheria toxoid conjugate vaccine (MCV4O)Adrian Hunter DO Work Phone: [phone]-[facility] HospitalWkqybhzept17-56-9544lqxpdsbqq A vaccine, pediatric/adolescent dosage, 2 dose scheduleCorey Hunter DO Work Phone: [phone] HospitalGpvtnnlmxw62-13-6265zcglezj capsular polysaccharide vaccineCorey Hunter DO Work Phone: [phone] [place], [place] [address]Imdkbbajbo38-20-3565oekcljf toxoid, reduced diphtheria toxoid, and acellular pertussis vaccine, adsorbedCorey Hunter DO Work Phone: [phone] [place], [place] [address]Cjvyphvohs26-15-1745zwysphieip, tetanus toxoids and acellular pertussis vaccine, unspecified formulationCorey Hunter DO Work Phone: [phone]-[facility] HospitalSubsgzkzxj13-39-1783fwehdih, mumps and rubella virus vaccineCorey Hunter DO Work Phone: [phone]-[facility] HospitalWqcmavmkjm27-52-1809gceakzowxs vaccine, inactivatedCorey Hunter DO Work Phone: [phone]-[facility] HospitalOlnltbyaom03-75-3053emkpiripsxfy conjugate vaccine, 7 valentCorey Hunter DO Work Phone: [phone]-[facility] HospitalKmbjjaivoz09-15-4039gvgcukjkvn, tetanus toxoids and acellular pertussis vaccine, unspecified formulationCorey Hunter DO Work Phone: [facility] HospitalFdfjuiiiun34-70-3880fgyzwcbwkto influenzae type b vaccine, PRP-OMP conjugateCorey Hunter DO Work Phone: [phone]-[facility] HospitalEmyiytkiww01-98-2169ltzbwdt, mumps and rubella virus vaccineCorey Hunter DO Work Phone: [phone]-[facility] HospitalYntwazlnfc49-88-1385nxwbhgogedaa conjugate vaccine, 7 valentCorey Hunter DO Work Phone: [phone]-[facility] HospitalZsakouedmc00-69-6841idyeeicmf virus vaccineCorey Hunter DO Work Phone: [phone]-[facility] HospitalYbmshwkaox13-06-7983kdapvmfwn B vaccine, pediatric or pediatric/adolescent dosageCorey Hunter DO Work Phone: [phone]-[facility] HospitalLqfmqmeeuf58-82-3690sfijicogjxcc conjugate vaccine, 7 valentCorey Hunter DO Work Phone: [phone]-[facility] HospitalKjkzaipljn81-92-9409npphmqggmz vaccine, inactivatedCorey Hunter DO Work Phone: [phone] [place], [place] [address]Ogqczcwhme31-06-7103nygmdymfxq, tetanus toxoids and acellular pertussis vaccine, unspecified formulationCorey Hunter DO Work Phone: [phone] [place], [place] [address]Bombhmdquw91-68-1239fpwgefeipnz influenzae type b vaccine, PRP-OMP conjugateCorey Hunter DO Work Phone: [phone] [place], [place] [address]Lxmfnojhnh00-30-3450ypupqnhtaf, tetanus toxoids and acellular pertussis vaccine, unspecified formulationCorey Hunter DO Work Phone: [phone] [place], [place] [address]Gejvxflxzo71-46-2819pqeejrrasug influenzae type b vaccine, PRP-OMP conjugateCorey Hunter DO Work Phone: [phone] [place], [place] [address]Metgytldzo56-91-1472bwsrmyogl B vaccine, pediatric or pediatric/adolescent dosageCorey Hunter DO Work Phone: [phone] [place], [place] [address]Ozoiyonbik21-40-2789ixdjixxpru vaccine, inactivatedCorey Hunter DO Work Phone: [phone]-[facility] HospitalXgamahpzbg35-83-1411duqizheiuk, tetanus toxoids and acellular pertussis vaccine, unspecified formulationCorey Hunter DO Work Phone: [phone] [place], [place] [address]Obmqriqtgp23-60-3154nydhwgbwwpd influenzae type b vaccine, PRP-OMP conjugateCorey Hunter DO Work Phone: [phone] [place], [place] [address]Efjkihmwft32-15-6431gsdncpthj B vaccine, pediatric or pediatric/adolescent dosageCorey Hunter DO Work Phone: [phone]-[facility] HospitalGxtkfcdvna27-81-5291xfwlbxjywd vaccine, inactivatedCorey Hunter DO Work Phone: [phone] [place] [address] Payers DatePayer CategoryPayerPolicy [id number] Fe Indian HospitalBS [id number] [id number] [id number] [employer] InsuranceMEDICAL MUTUAL Member Subscriber Plan / Payer (Effective 2021-2023) Name: Rhina Pedro Relation to Subscriber: Child Name: ESME PEDRO Date of : 1965 Address: [address] [place] [address] Payer ID:Not on file Type: Not on file Address: [address] [place] [id number]47-38-2740Vxezxix [id number] 2.0.1.596755.3.57[id number] 2.16840.1.091993.3.57[id number] 2.0.1.545234.3.57[id number] 2.840.1.671117.3.57[id number] 2.0.1.749402.3.57[id number] 2.0.1.521806.3.57[id number] 2.0.1.259087.3.57[id number] 2.0.1.128516.3.57[id number] 2.840.1.456161.3.579.2.727 Social History DateTypeDetailFacilityTobacco smoking statusSt. Vincent Hospitaltart: 10-11-2022 End: 61-38-7681Ttd Assigned At BirthFemalUpper Valley Medical Centertart: 42-21-7232Rqzubhq smoking status NHISNever smoked tobaccoNOMS HealthcareStart: 93-70-1695Ldnzjpx use and exposureSmokeless tobacco non-userNOMS Healthcare Start: 04-10-2023 End: 12-34-2377Owndhpg intakeCurrent drinker of alcohol (finding)[facility] Start: 04-10-2023 End: 73-38-0108Lksjxbp intakeNOMS HealthcareWithin the last year, have you been afraid of your partner or ex-partner?NoNOMS HealthcareAre you now , , , , never or living with a partner?Living with partnerNOMS HealthcareHow often to you have a drink containing alcohol?2-4 times a monthNOMS HealthcareHow many standard drinks containing alcohol do you have on a typical day?3 or 4NOMS HealthcareHow often do you have 6 or more drinks on 1 occasion?Less than monthlyNOMS HealthcareHow hard is it for you to pay for the very basics like food, housing, medical care, and heatingNot very hardNOMS HealthcareDo you feel stress - tense, restless, nervous, or anxious, or unable to sleep at night because yourmind is troubled all the time - these days [OSQ]Not at allNOPR Healthcare(I/We) worried whether (my/our) food would run out before (I/we) got money to buy more.Never trueNOMS HealthcareStart: 41-30-3348Ac the past 12 months, has lack of transportation kept you from medical appointments or from getting medications?NoNOMS HealthcareStart: 86-15-8410Yvgvnxd CommentCaffeine intake: 1-2 cups per day popNOPR Healthcare Start: 18-04-0953XodlvtpxzPIAF HealthcareStart: 10-19-0952Oqt Assigned At Not on fileUN[facility] HealthcareStart: 09-25-2023 End: 01-42-9509Eanmalfoi beverage intakeEx-drinker (finding)[facility] HealthcareHow many standard drinks containing alcohol do you have on a typical day?1 or 2NOMS HealthcareHow hard is it for you to pay for the very basics like food, housing, medical care, and heatingSomewhWashington Health System Greene Functional Status MviuCanlrvtesiHjnqpnIulbfqeh20-87-2872Hygbjle Health Questionnaire 2 item (PHQ- 2) [Reported][facility] HospitalUoznkjahea31-95-7518Ahizq score [AUDIT-C]3 12/21/2023 8:43 AM EDT Mychart, GenericSaint John's Saint Francis HospitalDbjuygsdfa79-09-9015Hsb often do you have a drink containing alcohol?2-4 times a month 12/21/2023 8:43 AM EDT Mychart, Generic 2-4 times a monthSaint John's Saint Francis HospitalVdffltltzf56-91-1383Vlx many standard drinks containing alcohol do you have on a typical day?1 or 2 12/21/2023 8:43 AM EDT Mychart, Generic 1 or 2NOMS Ocaxlsuxer08-62-1468Zdk often do you have 6 or more drinks on 1 occasion?Less than monthly 12/21/2023 8:43 AM EDT Mychart, Generic Less than monthlySaint John's Saint Francis HospitalQgtxntggyz66-81-0070Xnknaucenx StatusN/[facility] Clinical Notes 01-06-2023 to 10-22-2024 Note Date & GrdmUfceEvdzwwgq32-06-1879 History of Present illness Narrative* Rosita M Casas, MD - 10/22/2024 10:40 AM EDT Images from the original note were not included. Rhina Pedro is a 24 y.o. female presents with chief complaint of No chief complaint on file. HPI: History of Present Illness The patient presents for a physical exam. She is scheduled to start school in approximately 2 weeks and requires all necessary vaccinations. She reports no issues with lifting or standing and confirms that she is free from any communicable diseases. Her physical and mental health are both in good condition, and she has no disabilities. Shehas no concerns about starting school. 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 She is not on any medications, except for control. She received a [facility]vacc[facility] but was unable to locate the record. She has received 2 doses of the MMR vaccine, one in 2004 and another in 2000. However, she has only received one dose of the varicella vaccine. 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 Respiratory: Negative for shortness of breath. Cardiovascular: Negative for chest pain. Gastrointestinal: Negative for diarrhea, nausea and vomiting. Neurological: Negative for headaches. Medical, Surgical, Family, and Social History reviewed. OBJECTIVE: Visit Vitals BP 108/72 (BP Location: Left arm, Patient Position: Sitting, BP Cuff Size: Adult) Pulse 78 Temp 98.4 F (Temporal) Ht 5' 4 Wt 143 lb 12.8 oz LMP 09/17/2024 SpO2 98% BMI 24.68 kg/m OB Status Oral Contraception Smoking Status Never BSA 1.72 m BP Readings from Last 3 Encounters: 10/22/24 108/72 12/21/23 106/66 09/25/23 110/72 Wt Readings from Last 3 Encounters: 10/22/24 143 lb 12.8 oz 12/21/23 142 lb 9.6 oz 09/25/23 150 lb Physical Exam Physical Exam General Appearance: normal appearance, normal weight Vital signs: Within normal limits. HEENT: Within normal limits. Conjunctivate normal, ears patent Respiratory: Clear to auscultation, no wheezing, rales or rhonchi. effort normal, lungs clear bilaterally Cardiovascular: regular rate and rhythm, no murmurs, rubs or gallops Gastrointestinal: soft Skin: Warm and dry, no rash. Neurological: alert and oriented Psychiatric: thought content normal Results ASSESSMENT AND PLAN: Assessment & Plan 1. Physical examination. - Heart rate and blood pressure are within normal limits. - Weight is within the normal range. - Received 2 doses of MMR vaccine (2000, 2004); only 1 dose of varicella vaccine. - Advised to get Tdap vaccine from [facility] and complete TB test; titers for hepatitis B, varicella, and MMR ordered. If immune, no further immunizations needed. Assessment/Plan Diagnoses and all orders for this visit: Immunity status testing - Hepatitis B surface antibody; Future - MEASLES/MUMPS/RUBELLA IMMUNITY; Future - Varicella zoster antibody, IgG; Future Routine general medical examination at a health care facility Health Maintenance Due Topic Date Due Influenza Vaccine (1) 11/11/2024 documented in this encounterSaint John's Saint [facility] HospitalYpibaimtxa07-01-5674 History of Present illness Narrative* Rosita Casas MD - 12/21/2023 9:40 AM EDT Images from the original note were not included. Rhina Pedro is a 23 y.o. female presents with chief complaint of Cough (Patient here today for cough and laryngitis that has been ongoing for nearly 4 days. ) HPI: History of Present Illness The patient presents for evaluation of a cough. She reports feeling unwell, with her condition worsening last , Monday, and Monday. Concerned about possibly infecting her son, she sought emergency care on Monday night. Tests for flu, COVID-19, and RSV were all negative. She has been experiencing a loss of voice for the past 4 days and continues to cough. A few days ago, she was coughing up phlegm which occasionally caused choking, but this has not occurred recently.She also had head congestion, which has since improved, leaving only a slight runny nose. She has no history of asthma and has not taken any antibiotics in the past 3 months. She is not currently . ALLERGIES She denies any allergies. MEDICATIONS: Current Outpatient Medications Medication Instructions azithromycin (Zithromax) 250 MG tablet 2 tabs PO for day one, then 1 tab daily for 4 days desogestrel-ethinyl estradiol (Apri) 0.15-30 MG-MCG tablet 1 tablet, Oral, Daily, Take 1 tablet by mouth daily predniSONE (DELTASONE) 40 mg, Oral, Daily ALLERGIES: No Known Allergies Review of Systems Constitutional: Negative for chills and fever. HENT: Positive for voice change. Respiratory: Negative for shortness of breath. Cardiovascular: Negative for chest pain. Gastrointestinal: Negative for diarrhea, nausea and vomiting. Neurological: Negative for headaches. Medical, Surgical, Family, and Social History reviewed. OBJECTIVE: Visit Vitals BP 106/66 (BP Location: Left arm, Patient Position: Sitting, BP Cuff Size: Adult) Pulse 72 Temp 98.2 F (Temporal) Ht 5' 4 Wt 142 lb 9.6 oz SpO2 98% No BMI 24.48 kg/m OB Status Oral Contraception Smoking Status Never BSA 1.71 m BP Readings from Last 3 Encounters: 12/21/23 106/66 09/25/23 110/72 08/09/23 112/74 Wt Readings from Last 3 Encounters: 12/21/23 142 lb 9.6 oz 09/25/23 150 lb 08/09/23 176 lb 1.9 oz Physical Exam Constitutional: General: She is not in acute distress. HENT: Head: Normocephalic and atraumatic. Nose: No congestion or rhinorrhea. Mouth/Throat: Mouth: Mucous membranes are moist. Eyes: General: Right eye: No discharge. Left eye: No discharge. Conjunctiva/sclera: Conjunctivae normal. Cardiovascular: Rate and Rhythm: Normal rate. Pulmonary: Effort: Pulmonary effort is normal. No respiratory distress. Abdominal: General: There is no distension. Palpations: Abdomen is soft. Musculoskeletal: Cervical back: Neck supple. Skin: General: Skin is warm and dry. Neurological: General: No focal deficit present. Mental Status: She is alert. Psychiatric: Mood and Affect: Mood normal. Physical Exam Results Laboratory Studies Flu, Covid, and RSV tests were all negative. ASSESSMENT AND PLAN: Assessment & Plan 1. Cough. There is a noticeable lack of air movement despite the absence of significant congestion. She reports no history of asthma or recent antibiotic use. Prednisone will be prescribed, to be taken as two tablets daily for five days, to help reduce the inflammation causing her voice loss. An antibiotic will also be prescribed for use if there is no improvement after 48 hours. She may return to work if she feels well enough. Assessment/Plan Diagnoses and all orders for this visit: Bronchitis - predniSONE (Deltasone) 20 MG tablet; Take 2 tablets (40 mg) by mouth Daily for 5 days - azithromycin (Zithromax) 250 MG tablet; 2 tabs PO for day one, then 1 tab daily for 4 days Health Maintenance Due Topic Date Due Influenza Vaccine (1) 11/12/2023 [id number] Telephone encounter Note* Telephone Encounter - [facility] - 12/19/2023 1:10 PM EDT [place] [facility] [place] [id number] Miscellaneous Notes* Telephone Encounter - [facility] - 12/19/2023 1:10 PM EDT [place] [facility] [place] zander chills documented in this [facility]10-05-2024 Hospital Discharge instructions Patient Education 12/16/2023 16:57:55 Upper Respiratory Infection, Adult, Sqag-yf-Zwsx Upper Respiratory Infection, Adult An upper respiratory infection (URI) affects the nose, throat, and upper airways that lead to the lungs. The most common type of URI is often called the common cold. URIs usually get better on their own, without medical treatment. What are the causes? A URI is caused by a germ (virus). You may catch these germs by: Breathing in droplets from an infected person's cough or sneeze. Touching something that has the germ on it (is contaminated) and then touching your mouth, nose, oreyes. What increases the risk? You are more likely to get a URI if: You are very young or very old. You have close contact with others, such as at work, school, or a health care facility. You smoke. You have long-term (chronic) heart or lung disease. You have a weakened disease-fighting system (immune system). You have nasal allergies or asthma. You have a lot of stress. You have poor nutrition. What are the signs or symptoms? Runny or stuffy (congested) nose. Cough. Sneezing. Sore throat. Headache. Feeling tired (fatigue). Fever. Not wanting to eat as much as usual. Pain in your forehead, behind your eyes, and over your cheekbones (sinus pain). Muscle aches. Redness or irritation of the eyes. Pressure in the ears or face. How is this treated? URIs usually get better on their own within 7 10 days. Medicines cannot cure URIs, but your doctor may recommend certain medicines to help relieve symptoms, such as: Uyvl-vcs-hgefykc cold medicines. Medicines to reduce coughing (cough suppressants). Coughing is a type of defense against infection that helps to clear the nose, throat, windpipe, and lungs (respiratory system). Take these medicinesonly as told by your doctor. Medicines to lower your fever. Follow these instructions at home: Activity Rest as needed. If you have a fever, stay home from work or school until your fever is gone, or until your doctor says you may return to work or school. ?You should stay home until you cannot spread the infection anymore (you are not contagious). ?Your doctor may have you wear a face mask so you have less risk of spreading the infection. Relieving symptoms Rinse your mouth often with salt water. To make salt water, dissolve 1 tsp (3 6 g) of salt in 1 cup(237 mL) of warm water. Use a cool-mist humidifier to add moisture to the air. This can help you breathe more easily. Eating and drinking Drink enough fluid to keep your pee (urine) pale yellow. Eat soups and other clear broths. General instructions Take gyfs-dse-kvuocdu and prescription medicines only as told by your doctor. Do not smoke or use any products that contain nicotine or tobacco. If you need help quitting, ask your doctor. Avoid being where people are smoking (avoid secondhand smoke). Stay up to date on all your shots (immunizations), and get the flu shot every year. Keep all follow-up visits. How to prevent the spread of infection to others Wash your hands with soap and water for at least 20 seconds. If you cannot use soap and water, use hand motorboat mechanic helper. Avoid touching your mouth, face, eyes, or nose. Cough or sneeze into a tissue or your sleeve or elbow. Do not cough or sneeze into your hand or into the air. Contact a doctor if: You are getting worse, not better. You have any of these: ?A fever or chills. ?Brown or red mucus in your nose. ?Yellow or brown fluid (discharge)coming from your nose. ?Pain in your face, especially when you bend forward. ?Swollen neck glands. ?Pain when you swallow. ?White areas in the back of your throat. Get help right away if: You have shortness of breath that gets worse. You have very bad or constant: ?Headache. ?Ear pain. ?Pain in your forehead, behind your eyes, and over your cheekbones (sinus pain). ?Chest pain. You have long-lasting (chronic) lung disease along with any of these: ?Making high-pitched whistling sounds when you breathe, most often when you breathe out (wheezing). ?Long-lasting cough (more than 14 days). ?Coughing up blood. ?A change in your usual mucus. You have a stiff neck. You have changes in your: ?Vision. ?Hearing. ?Thinking. ?Mood. These symptoms may be an emergency. Get help right away. Call 911. Do not wait to see if the symptoms will go away. Do not drive yourself to the hospital. Summary An upper respiratory infection (URI) is caused by a germ (virus). The most common type of URI is often called the common cold. URIs usually get better within 7 10 days. Take sjcw-jsj-txubrfz and prescription medicines only as told by your doctor. This information is not intended to replace advice given to you by your health care provider. Make sure you discuss any questions you have with your health care provider. Document Revised: 09/29/2021 Document Reviewed: 09/29/2021 [employer] Patient Education 2023 [employer]. Follow Up Care 12/16/2023 15:41:22 With:Rosita Casas Address: [address] [place] [phone] Business (1) When:12/19/2023 16:48:50 Comments:Call Dr for diagnosis based follow up [facility] 10-05-2024 NoteED Patient Education Note Infectious Disease Upper Respiratory Infection, Adult An upper respiratory infection (URI) affects the nose, throat, and upper airways that lead to the lungs. The most common type of URI is often called the common cold. URIs usually get better on their own, without medical treatment. What are the causes? A URI is caused by a germ (virus). You may catch these germs by: ? Breathing in droplets from an infected person's cough or sneeze. ? Touching something that has the germ on it (is contaminated) and then touching your mouth, nose, or eyes. What increases the risk? You are more likely to get a URI if: ? You are very young or very old. ? You have close contact with others, such as at work, school, or a health care facility. ? You smoke. ? You have long-term (chronic) heart or lung disease. ? You have a weakened disease-fighting system (immune system). ? You have nasal allergies or asthma. ? You have a lot of stress. ? You have poor nutrition. What are the signs or symptoms? ? Runny or stuffy (congested) nose. ? Cough. ? Sneezing. ? Sore throat. ? Headache. ? Feeling tired (fatigue). ? Fever. ? Not wanting to eat as much as usual. ? Pain in your forehead, behind your eyes, and over your cheekbones (sinus pain). ? Muscle aches. ? Redness or irritation of the eyes. ? Pressure in the ears or face. How is this treated? URIs usually get better on their own within 7?10 days. Medicines cannot cure URIs, but your doctor may recommend certain medicines to help relieve symptoms, such as: ? Nela-iqz-tlubwgl cold medicines. ? Medicines to reduce coughing (cough suppressants). Coughing is a type of defense against infection that helps to clear the nose, throat, windpipe, and lungs (respiratory system). Take these medicines only as told by your doctor. ? Medicines to lower your fever. Follow these instructions at home: Activity ? Rest as needed. ? If you have a fever, stay home from work or school until your fever is gone, or until your doctorsays you may return to work or school. ? You should stay home until you cannot spread the infection anymore (you are not contagious). ? Your doctor may have you wear a face mask so you have less risk of spreading the infection. Relieving symptoms ? Rinse your mouth often with salt water. To make salt water, dissolve ??1 tsp (3?6 g) of salt in 1cup (237 mL) of warm water. ? Use a cool-mist humidifier to add moisture to the air. This can help you breathe more easily. Eating and drinking ? Drink enough fluid to keep your pee (urine) pale yellow. ? Eat soups and other clear broths. General instructions ? Take xnfr-wcl-jzexcfu and prescription medicines only as told by your doctor. ? Do not smoke or use any products that contain nicotine or tobacco. If you need help quitting, askyour doctor. ? Avoid being where people are smoking (avoid secondhand smoke). ? Stay up to date on all your shots (immunizations), and get the flu shot every year. ? Keep all follow-up visits. How to prevent the spread of infection to others ? Wash your hands with soap and water for at least 20 seconds. If you cannot use soap and water, use hand motorboat mechanic helper. ? Avoid touching your mouth, face, eyes, or nose. ? Cough or sneeze into a tissue or your sleeve or elbow. Do not cough or sneeze into your hand or into the air. Contact a doctor if: ? You are getting worse, not better. ? You have any of these: ? A fever or chills. ? Brown or red mucus in your nose. ? Yellow or brown fluid (discharge)coming from your nose. ? Pain in your face, especially when you bend forward. ? Swollen neck glands. ? Pain when you swallow. ? White areas in the back of your throat. Get help right away if: ? You have shortness of breath that gets worse. ? You have very bad or constant: ? Headache. ? Ear pain. ? Pain in your forehead, behind your eyes, and over your cheekbones (sinus pain). ? Chest pain. ? You have long-lasting (chronic) lung disease along with any of these: ? Making high-pitched whistling sounds when you breathe, most often when you breathe out (wheezing). ? Long-lasting cough (more than 14 days). ? Coughing up blood. ? A change in your usual mucus. ? You have a stiff neck. ? You have changes in your: ? Vision. ? Hearing. ? Thinking. ? Mood. These symptoms may be an emergency. Get help right away. Call 911. ? Do not wait to see if the symptoms will go away. ? Do not drive yourself to the hospital. Summary ? An upper respiratory infection (URI) is caused by a germ (virus). The most common type of URI is often called the common cold. ? URIs usually get better within 7?10 days. ? Take arvu-ysr-ntbtyqy and prescription medicines only as told by your doctor. This information is not intended to replace advice given (more content not included)...[facility]10-27-2023 Evaluation + Plan note Diagnostic Tests Pending * Urine Culture 01/06/23 * HIV Screen 4th Generation wRfx 01/06/23 * Hepatitis B Surface Antigen 01/06/23 * RPR with Conf Rfx 01/06/23 * Rubella Antibody IgG 01/06/23 * HCV Antibody RFX to Quant PCR 01/06/23 [facility] No data available for this section [facility]* Diagnosis Bronchitis- Primary Bronchitis, not specified as acute or chronic documented in this encounter [facility] HealthcareEvaluation note* Diagnosis Immunity status testing- Primary Antibody response examination Routine general medical examination at a health care facility documented in this encounter [facility] HealthcareHospital Discharge instructions No data available for this section [facility] No data available for this section [facility] Summary Purpose Family History No Family History Records Found Advance Directives No Advanced Directives Records FoundNo Advanced Directives Records FoundNo Advanced Directives Records FoundNo Advanced Directives Records FoundNo Advanced Directives Records FoundNo Advanced Directives Records FoundNo Advanced Directives Records FoundNo Advanced Directives Records Found Additional Source Comments Patient Care team informatio n (unrecognized section and content) Team MemberRelationshipSpecialtyStart DateEnd Rosita Casas MD [address] [place] [address] PCP - Medical [facility]08/11/22 Rosita Casas MD [address] [place] [address] PCP - [facility]10/07/22 Parul Henderson PA [address] [place] [address] [facility]22Team MemberRelationshipSpecialtyStart DateEnd Rosita aCsas MD [address] [place] [address] PCP - [facility]10/07/22 Parul Henderson PA [address] [place] [address] [facility]/22Team MemberRelationshipSpecialtyStart DateEnd Rosita Casas MD [address] [place] [address] PCP - [facility]10/07/22 Parul Hendersno PA [address] [place] [address] [facility]10/[facility]/22Team MemberRelationshipSpecialtyStart DateEnd Date Rosita Casas MD [address] [place] [address] PCP - [facility]10/07/22 Parul Henderson PA [address] [place] [address] [facility]/22Te MemberRelationshipSpecialtyStart DateEnd Rosita Casas MD [address] [place] [address] PCP - [facility]10/07/22 Parul Henderson PA [address] [place] [address] [facility]10/07/22Te MemberRelationshipSpecialtyStrobert End Rosita Casas MD [address] [place] [address] PCP - [facility]10/07/22 Parul Henderson PA [address] [place] [address] [facility]10/[facility]/22Te MemberRelationshipSpecialtyStrobert End Rosita Casas MD [address] [place] [address] PCP - [facility] Rosita Casas MD [address] [place] [address] PCP - [facility]10/07/22 Parul Henderson PA [address] [place] [address] [facility]10/07/22Te MemberRelationshipSpecialtyStrobert DateEnd Rosita Casas MD [address] [place] [address] PCP - Medical [facility] [facility] [employer]/ Rosita Casas MD [address] [place] [address] PCP - [facility]10/07/22 Parul Henderson PA [address] [place] [address] [facility]10/[facility]/22Te MemberRelationshipSpecialtyStrobert DateEnd Rosita Casas MD [address] [place] [address] PCP - Medical [facility]/ Rosita Casas MD [address] [place] [address] PCP - [facility]10/07/22 Parul Henderson PA [address] [place] [address] [facility]10/07/22 INFORMATION SOURCE (unrecogn ized section and content) DATE CREATED AUTHOR 12/18/2023 [facility] DATE CREATED AUTHOR AUTHOR'S ORGANIZ ATION 01/29/2024 [facility] DATE CREATED AUTHOR AUTHOR'S ORGANIZ ATION 10/23/2024 [facility] DATE CREATED AUTHOR AUTHOR'S ORGANIZ ATION 10/24/2024 [facility] DATE CREATED AUTHOR AUTHOR'S ORGANIZ ATION 01/12/2025 [facility] Reason for Visit (unrecogniz ed section and content) ReasonOnset DateCommentsER Follow-up4ReasonCommentsCoughPatient here today for cough and laryngitis that has been ongoing for nearly 4 days. FOR RECORDS PERTAINING TO PATIENTS WHO ARE [...] BE BASED ON THE PRIMARY CLINICAL RECORDS. [facility]. provides no warranty or guarantee of the accuracy or completeness of information in this document.
[2025-02-14 12:34] LABS: Hematocrit 39.0 % (36.0-48.0); Hemoglobin 13.5 g/dL (12.0-16.0); Immature Granulocytes Abs Auto 0.08 10^3/uL (0.00-0.03); Immature Granulocytes Pct Auto 0.8 % (0.0-0.5); Lymphocytes Absolute Auto 2.2 10^3/uL (1.2-3.8); Mean Corpuscular HGB Conc 34.6 g/dL (29.9-35.2); Mean Corpuscular Hemoglobin 31.7 pg (26.7-34.0); Mean Corpuscular Volume 91.5 fL (81.0-99.0); Platelet Count 292 10^3/uL (150-450); Red Blood Count 4.26 10^6/uL (4.20-5.40); White Blood Count 9.7 10^3/uL (4.0-11.0)
[2025-02-14 12:56] LABS: Cannabinoid Screen Urine NEGATIVE (NEGATIVE); Methamphetamines Screen Urine NEGATIVE (NEGATIVE); Tricyclic Antidepressant Urine NEGATIVE (NEGATIVE)
[2025-02-15 05:07] LABS: Rubella Antibodies, IgG 2.23 index (Immune >0.99)
[2025-02-15 13:08] LABS: Rapid Plasma Reagin, Quant Non Reactive titer (NonRea<1:1)
== END 2025-02-14 11:39 | disposition home or self-care (01) ==
LOC: LAB 11:40
PROVIDERS: Visit Provider Obstetrics & Gynecology
DX: Z34.92 Encounter for supervision of normal pregnancy, unspecified, second trimester (principal); N92.6 Irregular menstruation, unspecified
CPT/HCPCS: 36415; 80307; 82105; 83036; 85025; 86592; 86762; 86803; 86850; 86900; 86901; 87086; 87340; 87389